=== PATIENT | female | born 1940 | race Caucasian/White ===

== ENCOUNTER 2017-01-07 10:37 | Outpatient (CLI) | payer MEDICARE, OTHER | END 2017-01-07 10:38 | DX: M06.4 Inflammatory polyarthropathy (principal) ==

== ENCOUNTER 2017-03-24 14:29 | Outpatient (CLI) | payer MEDICARE, OTHER ==
[2017-03-24 15:21] LABS: ALBUMIN/GLOBULIN RATIO 1.7 (1.0-2.2); BILIRUBIN,TOTAL 0.3 mg/dL (0.2-1.0); CALCIUM 9.4 mg/dL (8.5-10.3); POTASSIUM 4.2 mmol/L (3.5-5.0)
[2017-03-24 15:25] LABS: BASOPHILS # (AUTO) 0.1 10^3/uL (0.0-0.1); BASOPHILS % (AUTO) 0.9 %; EOSINOPHILS # (AUTO) 0.1 10^3/uL (0.0-0.7); EOSINOPHILS % (AUTO) 0.6 %; HCT - HEMATOCRIT 38.8 % (37.0-47.0); HGB - HEMOGLOBIN 12.9 g/dL (12.0-16.0); LYMPHOCYTES # (AUTO) 1.7 10^3/uL (1.5-3.5); LYMPHOCYTES % (AUTO) 19.3 %; MEAN CORPUSCULAR HEMOGLOBIN 29.7 pg (27.0-31.0); MEAN CORPUSCULAR HGB CONC 33.2 g/dL (32.0-36.0); MEAN CORPUSCULAR VOLUME 89.4 fL (81.0-99.0); MEAN PLATELET VOLUME 8.1 fL (7.9-10.8); MONOCYTES # (AUTO) 0.5 10^3/uL (0.0-1.0); MONOCYTES % (AUTO) 5.6 %; NEUTROPHILS # (AUTO) 6.5 10^3/uL (1.5-6.6); NEUTROPHILS % (AUTO) 73.6 %; RED BLOOD COUNT 4.34 10^6/uL (4.20-5.40); RED CELL DISTRIBUTION WIDTH 15.8 % (12.0-15.0); UNCORRECTED WHITE BLOOD COUNT 8.8 x10^3/uL; WHITE BLOOD COUNT 8.8 x10^3/uL (4.8-10.8)
== END 2017-03-24 14:30 | disposition home or self-care (01) ==
LOC: LAB 14:29
PROVIDERS: ATTEND Internal Medicine Rheumatology
DX: M06.4 Inflammatory polyarthropathy (principal)
CPT/HCPCS: 36415; 80053; 85025; 85651

== ENCOUNTER 2017-04-01 08:00 | Outpatient (CLI) | payer MEDICARE, OTHER ==
[2017-04-02 12:38] LABS: TEST RESULT REPORT (())
[2017-04-03 10:28] LABS: TEST RESULT REPORT (())
== END 2017-04-01 08:01 | disposition home or self-care (01) ==
LOC: LAB.R 08:00
PROVIDERS: ATTEND Internal Medicine Rheumatology
DX: M25.511 Pain in right shoulder (principal)
CPT/HCPCS: 81599; 87070; 87205; 89051; 89060

== ENCOUNTER 2017-05-13 11:37 | Outpatient (CLI) | payer MEDICARE, OTHER ==
--- NOTE | 2017-05-13 14:34 | CT Report ---
CT OF THE ABDOMEN AND PELVIS WITHOUT CONTRAST: 05/13/2017 CLINICAL INDICATION: Back pain, CV angle pain, flank pain right. TECHNIQUE: Axial CT images of the abdomen and pelvis were obtained without oral or intravenous contra st, according to renal stone protocol. No previous CT is available for comparison. FINDINGS: Limited evaluation of the lung bases demonstrates atelectasis. ABDOMEN: The kidneys are unremarkable, without evidence of nephrolithiasis or hydronephrosis. No hydr oureter is seen. Allowing for the lack of intravenous contrast enhancement, the liver, spleen, pancre as and adrenal glands are unremarkable. The gallbladder is not dilated. No bowel dilatation, free gas , or free fluid is present. No abdominal adenopathy is seen. PELVIS: Sigmoid diverticulosis is present, without CT evidence of diverticulitis. No pelvic adenopath y or free fluid is present. The osseous structures demonstrate severe right and moderate left hip osteoarthritis as well as exten sive degenerative changes in the lumbar spine. No acute fracture is present. IMPRESSION: NO EVIDENCE OF NEPHROLITHIASIS OR HYDRONEPHROSIS. EXTENSIVE DEGENERATIVE CHANGES. DIVERT ICULOSIS, WITHOUT CT EVIDENCE OF DIVERTICULITIS. In accordance with CT protocol optimization, one or more of the following dose reduction techniques w ere utilized for this exam: automated exposure control, adjustment of mA and/or KV based on patient size, or use of iterative reconstructive technique. JOB #: [id number] EXT JOB #:
== END 2017-05-13 11:38 | disposition home or self-care (01) ==
LOC: DI 11:37
PROVIDERS: ATTEND Family Medicine
DX: M16.0 Bilateral primary osteoarthritis of hip (principal); N23 Unspecified renal colic; R10.9 Unspecified abdominal pain; K57.30 Diverticulosis of large intestine without perforation or abscess without bleeding; M47.896 Other spondylosis, lumbar region
CPT/HCPCS: 74176

== ENCOUNTER 2017-05-16 13:43 | Outpatient (CLI) | payer MEDICARE, OTHER ==
--- NOTE | 2017-05-16 21:25 | MRI Report ---
EXAM: MRI THORACIC SPINE WITHOUT CONTRAST EXAM DATE: 05/16/2017 02:23 PM. CLINICAL HISTORY: Degenerative joint disease. Scoliosis. Radiculopathy. History of breast cancer. COMPARISONS: None. TECHNIQUE: Multiplanar, multisequence T1-weighted and fluid-sensitive sequences of the thoracic spine from C7 to L1 without contrast. Other: None. FINDINGS: Spinal Cord: No signal abnormality in the visualized spinal cord. Alignment: Normal. No scoliosis or spondylolisthesis. Bone Marrow: No fractures. Type I endplate changes at L1-L2. 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 Mod erate bilateral sternoclavicular joint osteoarthritis is seen. Disk Levels/Facets: All visualized intervertebral disks are desiccated. C7-T1: The disk space is rudimentary. T1-T2: Severe disk height loss is present. Posterior disk protrusions result in mild spinal canal malik rowing. T2-T3: Mild right facet hypertrophy has no neurologic consequence. T3-T4: Unremarkable. T4-T5: Anterior endplate spurring is present. T5-T6: Anterior endplate spurring is present. T6-T7: Patient has mild disk height loss. Anterior endplate spurring is seen. T7-T8: Moderate disk height loss is accompanied by anterior endplate spurring. T8-T9: A minimal posterior disk protrusion has no neurologic consequence. T9-T10: Anterior endplate spurring is present. T10-T11: Moderate disk height loss is accompanied by anterior endplate spurring. A broad-based disk b ulge, mild ligamentum flavum hypertrophy, and mild facet hypertrophy result in mild spinal canal, mod erate right foraminal, and mild left foraminal narrowing. T11-T12: Anterior endplate spurring is present. T12-L1: There is mild disk height loss with anterior endplate spurring. A right-sided disk protrusion results in minimal right foraminal narrowing. L1-L2: Type II endplate change is present. There is severe disk height loss. The area is incompletely evaluated in the examination but a disk protrusion and intracanal synovial cysts cause at least mild spinal canal and right foraminal narrowing. Musculature: Normal. No edema or fatty atrophy. Other: The visualized lungs, mediastinum, and abdominal cavity are unremarkable. IMPRESSION: 1. Mild spinal canal narrowing at T1-T2 due to disk protrusions. 2. Mild spinal canal, moderate right foraminal, and mild left foraminal narrowing at T10-T11 due to d isk and posterior element degenerative changes. 3. At least mild spinal canal and right foraminal narrowing at L1-L2 due to disk and posterior elemen t degenerative changes. [facility] Referring Provider Line: [phone] SITE ID: [id number]
--- NOTE | 2017-05-16 21:26 | MRI Report ---
EXAM: MRI LUMBAR SPINE WITHOUT CONTRAST EXAM DATE: 05/16/2017 02:47 PM. CLINICAL HISTORY: Degenerative disk disease. Scoliosis. Radiculopathy. History of breast cancer. COMPARISON: CT abdomen and pelvis 05/13/2017. TECHNIQUE: Multiplanar, multisequence T1-weighted and fluid-sensitive sequences of the lumbar spine f rom T12 to S1 without contrast. Other: None. FINDINGS: Spinal Cord: The conus terminates at L1-L2. No signal abnormality in the visualized spinal cord. Alignment: Grade 1 anterolisthesis of L5 on S1 measures 9 mm. Grade 1 anterolisthesis of L2 on L3 patti sures 5 mm. A moderate rightward lumbar scoliosis has a Jacob angle of 20 degrees as measured from L2 to L3. There is also leftward translation of L1 on L2 by 5 mm and rightward translation of L3 on L4 b y 6 mm. Bone Marrow: The prior CT demonstrates 5 nonrib-bearing lumbar vertebral bodies. No fractures. Type I endplate changes at L1-L2, L2-L3, L3-L4, L4-L5, and L5-S1. Disk Levels/Facets: All visualized intervertebral disk are desiccated. T10-T11: Anterior endplate spurring is present. A broad-based posterior disk protrusion and ligamentu m flavum hypertrophy result in at least mild spinal canal narrowing. T11-T12: A broad-based posterior disk protrusion causes at least minimal spinal canal narrowing. T12-L1: Mild disk height loss is present. A broad-based disk bulge causes mild spinal canal and minim al bilateral foraminal narrowing. L1-L2: There is severe disk height loss with endplate irregularity. Anterior endplate spurring is pre sent. A broad-based disk bulge, severe ligamentum flavum hypertrophy and mild facet hypertrophy cause mild spinal canal, moderate right foraminal, and mild left foraminal narrowing. Note that there is a n intracanal synovial cyst on the left which contributes to the spinal canal narrowing. It measures 0 .7 x 0.3 x 0.5 cm. L2-L3: Severe disk height loss is accompanied by anterior endplate spurring. The anterolisthesis, a b road-based disk bulge, mild ligamentum flavum hypertrophy, and moderate facet hypertrophy result in m oderate spinal canal, minimal right foraminal, and moderate left foraminal narrowing. L3-L4: Severe disk height loss is accompanied by anterior endplate spurring. A broad-based disk bulge and severe facet hypertrophy cause mild spinal canal, minimal right foraminal, and mild left foramin al narrowing. L4-L5: Severe disk height loss is present. A broad-based disk bulge and mild facet hypertrophy result in minimal spinal canal, mild right foraminal, and minimal left foraminal narrowing. L5-S1: Severe disk height loss is present. The anterolisthesis, a disk bulge, and mild facet osteoart hritis cause severe bilateral foraminal narrowing. Undoubtedly both L5 nerve roots are compressed in the neural foramina. Musculature: Mild posterior paraspinal muscle fatty atrophy is not accompanied by edema. Other: The visualized pelvic cavity is unremarkable. IMPRESSION: 1. Grade 1 anterolisthesis of L2 on L3 and L5 on S1. 2. Moderate rightward lumbar scoliosis and translational listheses. 3. At least mild spinal canal narrowing at T10-T11 due to disk and posterior element degenerative jean-pierre nges. 4. Mild spinal canal narrowing at T12/L1 due to disk bulge. 5. Mild spinal canal, moderate right foraminal, and mild left foraminal narrowing at L1-L2 due to dis k and posterior element degenerative changes. 6. Moderate spinal canal and moderate left foraminal narrowing at L2-L3 due to disk and posterior inez ment degenerative changes. 7. Mild spinal canal and left foraminal narrowing at L3-L4 due to disk and posterior element degenera tive changes. 8. Mild right foraminal narrowing at L4-L5 due to disk and posterior element degenerative changes. 9. Severe bilateral foraminal narrowing at L5-S1 primarily due to the anterolisthesis. Comment: The following findings are so common in adults without low back pain that while we report th eir presence, they must be interpreted with caution and in the context of the clinical situation. (Re keyla Boyer et al, Spine 2001) Prevalence of findings in patients without low back pain: Disk degeneration (any evidence): 92% Disk desiccation/T2 signal loss: 83% Disk height loss: 56% Disk bulge: 64% Disk protrusion: 32% Annular tear/high intensity zone: 38% [facility] Referring Provider Line: [phone] SITE ID: [id number]
== END 2017-05-16 13:44 | disposition home or self-care (01) ==
LOC: DI 13:43
PROVIDERS: ATTEND Family Medicine
DX: M51.24 Other intervertebral disc displacement, thoracic region (principal); M51.34 Other intervertebral disc degeneration, thoracic region; M43.16 Spondylolisthesis, lumbar region; M43.17 Spondylolisthesis, lumbosacral region; M41.86 Other forms of scoliosis, lumbar region; M51.36 Other intervertebral disc degeneration, lumbar region
CPT/HCPCS: 72146; 72148

== ENCOUNTER 2017-06-15 08:52 | Outpatient (CLI) | payer MEDICARE, OTHER ==
--- NOTE | 2017-06-17 06:26 | Mammography Report ---
DIGITAL RIGHT SCREENING MAMMOGRAM: 06/15/2017 CLINICAL INDICATION: A 77-year-old with personal history of left breast cancer status post mastectom y and chemotherapy, interval right augmentation. TECHNIQUE: Right CC, MLO, implant displaced views were obtained. The right breast again demonstrates heterogeneously dense fibroglandular parenchyma. A right subpect oral silicone implant is now in place. No suspicious masses, clustered microcalcifications, or regio ns of architectural distortion are identified. IMPRESSION: BENIGN FINDINGS. RECOMMENDATION: ROUTINE ANNUAL SCREENING UNLESS OTHERWISE CLINICALLY INDICATED. BIRADS CATEGORY: 2, BENIGN FINDINGS. STANDARD QUALIFYING STATEMENTS 1. This examination was reviewed with the aid of Computed-Aided Detection (CAD). 2. A negative or benign imaging report should not delay biopsy if clinically suspicious findings are present. Consider surgical consultation if warranted. More than 5% of cancers are not identified b y imaging. 3. Dense breasts may obscure an underlying neoplasm. JOB #: [id number] EXT JOB #:
== END 2017-06-15 08:53 | disposition home or self-care (01) ==
LOC: DI 08:52
PROVIDERS: ATTEND Physician Assistant Medical
DX: Z12.31 Encounter for screening mammogram for malignant neoplasm of breast (principal); Z08 Encounter for follow-up examination after completed treatment for malignant neoplasm; Z85.3 Personal history of malignant neoplasm of breast; Z98.82 Breast implant status
CPT/HCPCS: 77067

== ENCOUNTER 2017-07-03 15:08 | Outpatient (CLI) | payer MEDICARE, OTHER ==
--- NOTE | 2017-07-06 16:24 | DEXA Report ---
DEXA SCAN: 07/03/2017 CLINICAL INDICATION: Postmenopausal. TECHNIQUE: Dual energy x-ray absorptiometry (DXA) was performed on a Study Edge system. Regions measured are the AP spine, femoral neck, and, if needed, forearm. COMPARISON: None. In accordance with the International Society for Clinical Densitometry (ISCD) guidelines, data from previous exams may be reanalyzed using current recommendations and techniques. This is done to allow a more accurate basis for comparison with the current study. FINDINGS: The data for the lumbar spine is as follows: REGION BMD (g/cm/cm) T-SCORE Z-SCORE L1 1.191 0.5 2.4 L2 1.462 2.2 4.1 L3 1.486 2.4 4.3 L4 1.287 0.7 2.6 TOTAL 1.359 1.5 3.4 NOTE: All evaluable vertebrae are used for classification. The data for the hip is as follows: REGION BMD (g/cm/cm) T-SCORE Z-SCORE Neck 1.180 1.0 3.1 TOTAL 1.128 1.0 2.9 NOTE: The femoral neck or total proximal femur, whichever is lowest, is used for classification. IMPRESSION: THE WHO CLASSIFICATION BASED ON THE INTERNATIONAL REFERENCE STANDARD IS NORMAL. THE FRACTURE RISK IS NOT INCREASED. RECOMMENDATION: Patients with diagnosis of osteoporosis or osteopenia should have regular bone mineral density assessment. For those eligible for Medicare, routine testing is allowed once every 2 years. Testing frequency can be increased for patients who have rapidly progressing disease or for those who are receiving medical therapy to restore bone mass. COMMENT: World Health Organization (WHO) definitions for osteoporosis and osteopenia: NORMAL BMD: T-score at -1.0 or higher, fracture risk is low. OSTEOPENIA BMD: T-score between -1.0 and -2.5, fracture risk is increased. OSTEOPOROSIS BMD: T-score at -2.5 or lower, fracture risk high. National Osteoporosis Foundation recommends: 1. Obtain adequate dietary calcium (at least 1200 mg per day) and vitamin D (400 -800 international units per day). 2. Participate, as appropriate, in regular weightbearing and muscle- strengthening exercise. 3. Avoid tobacco use and reduce alcohol and caffeine intake. 4. For more detailed information see the website at www.NOF.org. MTDD
== END 2017-07-03 15:09 | disposition home or self-care (01) ==
LOC: DI 15:08
PROVIDERS: ATTEND Internal Medicine Rheumatology
DX: M81.0 Age-related osteoporosis without current pathological fracture (principal)
CPT/HCPCS: 77080

== ENCOUNTER 2017-08-06 13:47 | Outpatient (CLI) | payer MEDICARE, OTHER ==
[2017-08-08 20:36] LABS: TEST RESULT REPORT
== END 2017-08-06 13:48 | disposition home or self-care (01) ==
LOC: LAB 13:47
PROVIDERS: ATTEND Internal Medicine Rheumatology
DX: M05.79 Rheumatoid arthritis with rheumatoid factor of multiple sites without organ or systems involvement (principal)
CPT/HCPCS: 36415; 81599; 86480; 87340

== ENCOUNTER 2017-08-07 16:38 | Emergency (ER) | payer MEDICARE, OTHER ==
--- NOTE | 2017-08-07 18:36 | ED Physician Documentation ---
History of Present Illness - Stated complaint Stated Complaint: RT ARM SWOLLEN - Chief complaint Chief Complaint: Ext Problem - History obtained from History obtained from: Patient - History of Present Illness Timing: Today Pain level max: 3 Pain level now: 3 Improved by: nothing Worsened by: nothing - Additonal information Additional information: R elbow redness, swelling, pain. no known injury. States has a history of osteo vs rheumatoid arthritis in the R shoulder and noted redness and swelling to the medial aspect of the L elbow today. Review of Systems Ten Systems: 10 systems reviewed and negative Constitutional: denies: Fever, Chills Ears: denies: Ear pain Nose: denies: Rhinorrhea / runny nose, Epistaxis, Sinus pressure / pain Throat: denies: Sore throat Cardiac: denies: Chest pain / pressure Respiratory: denies: Cough GI: denies: Abdominal Pain, Nausea, Vomiting, Diarrhea : denies: Dysuria, Frequency, Hesitancy, Now EGA Skin: denies: Rash Musculoskeletal: denies: Neck pain, Back pain Neurologic: denies: Focal weakness, Numbness, Seizure, Confused, Headache PD PAST MEDICAL HISTORY - Past Medical History Cardiovascular: None Respiratory: None Neuro: Other Endocrine/Autoimmune: None 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 Psych: None Musculoskeletal: Osteoarthritis, Rheumatoid arthritis, Osteoporosis, Chronic back pain - Past Surgical History Past Surgical History: Yes General: Appendectomy Ortho: Arthroscopic surgery /SUPERVISOR BLAST FURNACE: Mastectomy HEENT: Tonsil/Adenoidectomy - Present Medications Home Medications: Ambulatory Orders Medication Instructions Recorded Confirmed Aspirin Chewable [[place] 81 mg PO DAILY 11/18/13 08/07/17 Aspirin] Chlordiazepoxide/Clidinium Br 1 each PO DAILY 11/18/13 08/07/17 [Chlordiazepoxide-Clidinium Cap] Levothyroxine [Synthroid] 50 mcg PO QDAC 11/18/13 08/07/17 Acetaminophen [Tylenol Extra 2 tab PO BID 08/07/17 08/07/17 Strength] Ascorbic Acid [Vitamin C] 500 mg PO DAILY 08/07/17 08/07/17 Cholecalciferol (Vitamin D3) 1 cap PO DAILY 08/07/17 08/07/17 [Vitamin D3] Flaxseed Oil 1 cap PO DAILY 08/07/17 08/07/17 Krill/Whiting-3/Dha/Epa/Lipids 1 cap PO DAILY 08/07/17 08/07/17 [Krill Oil 350 mg Softgel] L. Acidophilus/L. Rhamnosus 1 each PO DAILY 08/07/17 08/07/17 [Probiotic 15 Billion Cell Cap] Leflunomide 20 mg PO DAILY 08/07/17 08/07/17 Magnesium 400 mg PO DAILY 08/07/17 08/07/17 Multivit with Calcium,Iron,Min 1 tab PO DAILY 08/07/17 08/07/17 [Multiple Vitamins For Women] Vitamin E 100 unit PO DAILY 08/07/17 08/07/17 predniSONE [Deltasone] 4 mg PO DAILY 08/07/17 08/07/17 - Allergies Allergies/Adverse Reactions: Allergies Allergy/AdvReac Type Severity Reaction Status Date / Time hydrocodone AdvReac Dizziness Verified 11/18/13 05:41 - Social History Does the pt smoke?: No Smoking Status: Never smoker Does the pt drink ETOH?: No Does the pt have substance abuse?: No - POLST Patient has POLST: Yes PD ED PE NORMAL - Vitals Vital signs reviewed: Yes - General General: Alert and oriented X 3, No acute distress - HEENT HEENT: Moist mucous membranes - Neck Neck: Supple, no meningeal sign - Cardiac Cardiac: RRR, Strong equal pulses - Respiratory Respiratory: No respiratory distress, Clear bilaterally - Abdomen Abdomen: Soft, Non tender, Non distended - Derm Derm: Warm and dry - Extremities Extremities: Other (Right upper extremity, the medial aspect of the elbow appears to have bruising, approximately 10 x 3 cm. Blanches easily. No petechiae. Otherwise normal exam. No evidence of infection. Is not warm. NVI) - Neuro Neuro: Alert and oriented X 3 - Psych Psych: Normal mood, Normal affect Results - Vitals Vitals: Vital Signs - 24 hr 08/07/17 08/07/17 08/07/17 16:56 18:50 20:11 Temperature 36.4 C L 36.2 C L 36.0 C L Heart Rate 71 68 98 Respiratory 16 16 15 Rate Blood Pressure 150/89 H 151/74 H 155/74 H O2 Saturation 97 97 100 Oxygen O2 Source Room air - Labs Labs: Laboratory Tests 08/07/17 08/07/17 08/07/17 18:53 18:53 18:53 WBC 7.6 RBC 4.49 Hgb 14.1 Hct 42.3 MCV 94.3 MCH 31.3 H MCHC 33.2 RDW 15.3 H Plt Count 265 MPV 7.8 L Neut # 4.6 Lymph # 2.2 [place] # 0.6 Eos # 0.1 Baso # 0.1 Absolute Nucleated RBC 0.00 Nucleated RBC % 0.0 ESR PT 11.1 INR 1.0 APTT 30.2 Sodium 137 Potassium 4.4 Chloride 103 Carbon Dioxide 25 Anion Gap 9.0 BUN 18 Creatinine 0.9 Estimated GFR (MDRD) 61 L Glucose 105 H Calcium 9.5 Total Bilirubin 0.5 AST 18 ALT 16 Alkaline Phosphatase 66 C-Reactive Protein < 1.0 Total Protein 6.2 L Albumin 3.8 Globulin 2.4 Albumin/Globulin Ratio 1.6 Lipase 35 08/07/17 18:53 WBC RBC Hgb Hct MCV MCH MCHC RDW Plt Count MPV Neut # Lymph # [place] # Eos # Baso # Absolute Nucleated RBC Nucleated RBC % ESR 5 PT INR APTT Sodium Potassium Chloride Carbon Dioxide Anion Gap BUN Creatinine Estimated GFR (MDRD) Glucose Calcium Total Bilirubin AST ALT Alkaline Phosphatase C-Reactive Protein Total Protein Albumin Globulin Albumin/Globulin Ratio Lipase PD MEDICAL DECISION MAKING - ED course Complexity details: reviewed results, re-evaluated patient, considered differential, d/w patient ED course: Patient with ecchymosis of the right elbow. Unclear etiology. No evidence of vasculitis, thrombocytopenia, coagulation disorder. We will continue supportive care and follow-up with her doctor. Patient counseled regarding signs and symptoms for which I believe and urgent re-evaluation would be necessary. Patient with good understanding of and agreement to plan and is comfortable going home at this time This document was made in part using voice recognition software. While efforts are made to proofread this document, sound alike and grammatical errors may occur. Departure - Departure Disposition: 01 Home, Self Care Clinical Impression: Ecchymosis Condition: Good Instructions: ED Contusion Soft Tissue Follow-Up: Meron Mcdaniel PA-C [Primary Care Provider] - Within 3 Days (for wound check) Comments: Return if you worsen. This should improve over the next few days. Discharge Date/Time: 08/07/17 20:17
[2017-08-07 18:57] LABS: BASOPHILS # (AUTO) 0.1 10^3/uL (0.0-0.1); BASOPHILS % (AUTO) 1.2 %; EOSINOPHILS # (AUTO) 0.1 10^3/uL (0.0-0.7); EOSINOPHILS % (AUTO) 1.5 %; HCT - HEMATOCRIT 42.3 % (37.0-47.0); HGB - HEMOGLOBIN 14.1 g/dL (12.0-16.0); LYMPHOCYTES # (AUTO) 2.2 10^3/uL (1.5-3.5); LYMPHOCYTES % (AUTO) 28.5 %; MEAN CORPUSCULAR HEMOGLOBIN 31.3 pg (27.0-31.0); MEAN CORPUSCULAR HGB CONC 33.2 g/dL (32.0-36.0); MEAN CORPUSCULAR VOLUME 94.3 fL (81.0-99.0); MEAN PLATELET VOLUME 7.8 fL (7.9-10.8); MONOCYTES # (AUTO) 0.6 10^3/uL (0.0-1.0); MONOCYTES % (AUTO) 8.1 %; NEUTROPHILS # (AUTO) 4.6 10^3/uL (1.5-6.6); NEUTROPHILS % (AUTO) 60.7 %; RED BLOOD COUNT 4.49 10^6/uL (4.20-5.40); RED CELL DISTRIBUTION WIDTH 15.3 % (12.0-15.0); UNCORRECTED WHITE BLOOD COUNT 7.6 x10^3/uL; WHITE BLOOD COUNT 7.6 x10^3/uL (4.8-10.8)
[2017-08-07 19:08] LABS: PT - PROTHROMBIN TIME 11.1 secs (9.9-12.6)
[2017-08-07 19:15] LABS: PARTIAL THROMBOPLASTIN TIME 30.2 secs (24.9-33.3)
[2017-08-07 19:27] LABS: ALBUMIN/GLOBULIN RATIO 1.6 (1.0-2.2); BILIRUBIN,TOTAL 0.5 mg/dL (0.2-1.0); BUN - BLOOD UREA NITROGEN 18 mg/dL (6-20); CALCIUM 9.5 mg/dL (8.5-10.3); CARBON DIOXIDE - CO2 25 mmol/L (21-32); CHLORIDE 103 mmol/L (101-111); CREATININE 0.9 mg/dL (0.4-1.0); GFR - MDRD 61 (>89); GLUCOSE 105 mg/dL (70-100); LIPASE 35 U/L (22-51); POTASSIUM 4.4 mmol/L (3.5-5.0); SODIUM 137 mmol/L (135-145); TOTAL PROTEIN 6.2 g/dL (6.7-8.2)
[2017-08-07 20:12] VITALS: BP 155/74
== END 2017-08-07 20:17 | disposition home or self-care (01) ==
LOC: ED 16:38
DX: R23.3 Spontaneous ecchymoses (principal); M06.9 Rheumatoid arthritis, unspecified; M81.0 Age-related osteoporosis without current pathological fracture; Z79.82 Long term (current) use of aspirin; Z85.3 Personal history of malignant neoplasm of breast
CPT/HCPCS: 36415; 80053; 83690; 85025; 85610; 85651; 85730; 86140; 99283

== ENCOUNTER 2017-08-10 20:45 | Outpatient (CLI) | payer MEDICARE, OTHER ==
--- NOTE | 2017-08-10 22:22 | Ultrasound Preliminary Report ---
Exam: US DUPLEX EXT VEINS RIGHT IMPRESSION: 1. No evidence for deep vein thrombosis. 2. Complex collection in the biceps measuring 8.1 x 0.8 x 3.9 cm, possibly hematoma. [facility] SITE ID: [id number]
--- NOTE | 2017-08-10 22:25 | Ultrasound Report ---
EXAM: RIGHT UPPER EXTREMITY VENOUS ULTRASOUND EXAM DATE: 08/10/2017 10:09 PM. CLINICAL HISTORY: LOCALIZED SWELLING OF ARM, RIGHT. COMPARISON: None. TECHNIQUE: Real-time sonographic vascular imaging was performed by the supervisor fryer farm through the upper extremity utilizing both color-flow and Doppler spectral analysis. Multiple sales representative advertising static leticia ges were saved for review. FINDINGS: Internal Jugular Vein (IJV): Normal. Subclavian Vein (SCV): Normal. Axillary Vein : Normal. Cephalic Vein (superficial vein): Normal. Basilic Vein (superficial vein): Normal. Brachial Vein: Normal. Other: Complex collection in the right biceps measuring 8.1 x 0.8 x 3.9 cm. IMPRESSION: 1. No evidence for deep vein thrombosis. 2. Complex collection in the biceps measuring 8.1 x 0.8 x 3.9 cm, possibly hematoma. [facility] Referring Provider Line: [phone] SITE ID: [id number]
== END 2017-08-10 20:46 | disposition home or self-care (01) ==
LOC: DI 20:45
PROVIDERS: ATTEND Family Medicine
DX: R22.31 Localized swelling, mass and lump, right upper limb (principal)

== ENCOUNTER 2017-08-27 14:07 | Outpatient (CLI) | payer MEDICARE, OTHER ==
--- NOTE | 2017-08-27 19:02 | XRAY Report ---
TWO VIEW RIGHT HUMERUS: 08/27/2017 CLINICAL INDICATION: Pain. COMPARISON: Right shoulder 12/12/2015. Frontal and lateral views of the right humerus demonstrate no evidence of fracture. There has been p rogression of osteoarthritis of the right glenohumeral joint, and new widening of the right acromiocl avicular joint, compatible with shoulder separation. No radiopaque foreign body is seen in the soft tissues. IMPRESSION: PROGRESSION OF OSTEOARTHRITIS. WIDENING OF THE RIGHT ACROMIOCLAVICULAR JOINT, COMPATIBL E WITH SHOULDER SEPARATION, NEW FROM 12/12/2015. NO EVIDENCE OF HUMERAL FRACTURE. :9 JOB #: [id number] EXT JOB #:[id number]
== END 2017-08-27 14:08 | disposition home or self-care (01) ==
LOC: DI 14:07
PROVIDERS: ATTEND Physician Assistant Medical
DX: M19.011 Primary osteoarthritis, right shoulder (principal)

== ENCOUNTER 2017-09-01 09:39 | Outpatient (CLI) | payer MEDICARE, OTHER ==
--- NOTE | 2017-09-01 13:22 | XRAY Report ---
AC JOINTS WITH AND WITHOUT WEIGHTS: 09/01/2017 CLINICAL INDICATION: Shoulder separation. FINDINGS: Frontal non-weightbearing and weightbearing views of the acromioclavicular joints were obt ained. There is widening of the right acromioclavicular joint, measuring 13 mm, which is stable with and without weights. Degenerative changes are noted in the left acromioclavicular joint. IMPRESSION: RIGHT AC SEPARATION, NOW STABLE, LIKELY CHRONIC. JOB #: [id number] EXT JOB #:[id number]
== END 2017-09-01 09:40 | disposition home or self-care (01) ==
LOC: DI 09:39
PROVIDERS: ATTEND Physician Assistant Medical
DX: M62.011 Separation of muscle (nontraumatic), right shoulder (principal)
CPT/HCPCS: 73050

== ENCOUNTER 2017-09-30 14:26 | Outpatient (CLI) | payer MEDICARE, OTHER ==
[2017-09-30 13:18] LABS: BASOPHILS # (AUTO) 0.1 10^3/uL (0.0-0.1); BASOPHILS % (AUTO) 1.3 %; EOSINOPHILS # (AUTO) 0.1 10^3/uL (0.0-0.7); HCT - HEMATOCRIT 40.9 % (37.0-47.0); HGB - HEMOGLOBIN 13.8 g/dL (12.0-16.0); LYMPHOCYTES # (AUTO) 1.3 10^3/uL (1.5-3.5); LYMPHOCYTES % (AUTO) 23.2 %; MEAN CORPUSCULAR HEMOGLOBIN 31.6 pg (27.0-31.0); MEAN CORPUSCULAR HGB CONC 33.7 g/dL (32.0-36.0); MEAN CORPUSCULAR VOLUME 93.7 fL (81.0-99.0); MEAN PLATELET VOLUME 8.6 fL (7.9-10.8); MONOCYTES # (AUTO) 0.7 10^3/uL (0.0-1.0); MONOCYTES % (AUTO) 11.6 %; NEUTROPHILS # (AUTO) 3.5 10^3/uL (1.5-6.6); NEUTROPHILS % (AUTO) 61.9 %; RED BLOOD COUNT 4.36 10^6/uL (4.20-5.40); RED CELL DISTRIBUTION WIDTH 14.2 % (12.0-15.0); UNCORRECTED WHITE BLOOD COUNT 5.7 x10^3/uL; WHITE BLOOD COUNT 5.7 x10^3/uL (4.8-10.8)
[2017-09-30 14:13] LABS: ALBUMIN/GLOBULIN RATIO 1.5 (1.0-2.2); BILIRUBIN,TOTAL 0.4 mg/dL (0.2-1.0); CREATININE 0.7 mg/dL (0.4-1.0); TOTAL PROTEIN 6.2 g/dL (6.7-8.2)
== END 2017-09-30 14:27 | disposition home or self-care (01) ==
LOC: LAB.WCP 14:26
PROVIDERS: ATTEND Internal Medicine Rheumatology
DX: M06.9 Rheumatoid arthritis, unspecified (principal); M06.4 Inflammatory polyarthropathy
CPT/HCPCS: 36415; 80053; 85025; 85651

== ENCOUNTER 2017-10-29 08:00 | Outpatient (CLI) | payer MEDICARE, OTHER ==
[2017-10-29 12:51] LABS: BASOPHILS # (AUTO) 0.2 10^3/uL (0.0-0.1); BASOPHILS % (AUTO) 3.5 %; EOSINOPHILS # (AUTO) 0.3 10^3/uL (0.0-0.7); EOSINOPHILS % (AUTO) 4.3 %; HGB - HEMOGLOBIN 14.4 g/dL (12.0-16.0); LYMPHOCYTES # (AUTO) 1.3 10^3/uL (1.5-3.5); MEAN CORPUSCULAR HEMOGLOBIN 30.7 pg (27.0-31.0); MEAN CORPUSCULAR HGB CONC 33.7 g/dL (32.0-36.0); MEAN PLATELET VOLUME 8.9 fL (7.9-10.8); MONOCYTES # (AUTO) 0.7 10^3/uL (0.0-1.0); MONOCYTES % (AUTO) 10.8 %; NEUTROPHILS # (AUTO) 3.7 10^3/uL (1.5-6.6); NEUTROPHILS % (AUTO) 60.4 %; PLT - PLATELET COUNT 221 10^3/uL (130-450); RED BLOOD COUNT 4.69 10^6/uL (4.20-5.40); RED CELL DISTRIBUTION WIDTH 13.9 % (12.0-15.0); WHITE BLOOD COUNT 6.2 x10^3/uL (4.8-10.8)
[2017-10-29 13:04] LABS: ALBUMIN 3.7 g/dL (3.2-5.5); ALBUMIN/GLOBULIN RATIO 1.4 (1.0-2.2); BILIRUBIN,TOTAL 0.5 mg/dL (0.2-1.0); CREATININE 0.8 mg/dL (0.4-1.0); TOTAL PROTEIN 6.3 g/dL (6.7-8.2)
== END 2017-10-29 08:01 ==
LOC: LAB.WCP 08:00
PROVIDERS: ATTEND Physician Assistant Medical
DX: A08.4 Viral intestinal infection, unspecified (principal)
CPT/HCPCS: 36415; 80053; 85025

== ENCOUNTER 2018-01-04 13:39 | Outpatient (CLI) | payer MEDICARE, OTHER ==
--- NOTE | 2018-01-04 15:34 | Ultrasound Report ---
RIGHT BREAST ULTRASOUND: 01/04/2018 CLINICAL INDICATION: Palpable abnormality. TECHNIQUE: Real-time scanning was performed with technology sales representative static images obtained. FINDINGS: Ultrasound of the inferior right breast was performed. Unremarkable parenchymal lobules are seen superficial to the patient's implant. No sonographically suspicious findings are appreciated. IMPRESSION: BENIGN FINDINGS. RECOMMENDATION: ROUTINE ANNUAL MAMMOGRAPHY UNLESS OTHERWISE CLINICALLY INDICATED. BIRADS CATEGORY 2-BENIGN FINDINGS. TD: 01/04/2018 15:33
--- NOTE | 2018-01-04 15:38 | Mammography Report ---
DIGITAL DIAGNOSTIC RIGHT MAMMOGRAM: 01/04/2018 CLINICAL INDICATION: Palpable abnormality status post fall. COMPARISON: 06/15/2017, 03/20/2016, 06/05/2014, 06/01/2013, 05/14/2012, 05/12/2011, 05/09/2010. TECHNIQUE: Right CC, MLO, true lateral, implant displaced views. FINDINGS: He right breast again demonstrates scattered fibroglandular densities. Right subpectoral implant appears stable. No suspicious masses, clustered microcalcifications, or regions of architectural distortion are identified. Specifically, no mammographic abnormality is appreciated in the inferior right breast, at the site indicated by the marker. Please also refer to right breast ultrasound of the same day. IMPRESSION: BENIGN FINDINGS. RECOMMENDATION: ROUTINE ANNUAL SCREENING UNLESS OTHERWISE CLINICALLY INDICATED. BIRADS CATEGORY 2-BENIGN FINDINGS. STANDARD QUALIFYING STATEMENTS: 1. This examination was reviewed with the aid of Computer-Aided Detection (CAD). 2. A negative or benign imaging report should not delay biopsy if clinically suspicious findings are present. Consider surgical consultation if warranted. More than 5% of cancers are not identified by imaging. 3. Dense breasts may obscure an underlying neoplasm. TD: 01/04/2018 15:37
== END 2018-01-04 13:40 | disposition home or self-care (01) ==
LOC: DI 13:39
PROVIDERS: ATTEND Physician Assistant Medical
DX: N63.14 Unspecified lump in the right breast, lower inner quadrant (principal); N63.13 Unspecified lump in the right breast, lower outer quadrant; Z98.82 Breast implant status
CPT/HCPCS: 76642

== ENCOUNTER 2018-01-12 10:21 | Outpatient (CLI) | payer MEDICARE, OTHER ==
[2018-01-12 10:52] LABS: BASOPHILS % (AUTO) 0.3 %; EOSINOPHILS # (AUTO) 0.2 10^3/uL (0.0-0.7); EOSINOPHILS % (AUTO) 1.7 %; HGB - HEMOGLOBIN 14.2 g/dL (12.0-16.0); LYMPHOCYTES # (AUTO) 2.6 10^3/uL (1.5-3.5); LYMPHOCYTES % (AUTO) 28.7 %; MEAN CORPUSCULAR HEMOGLOBIN 31.1 pg (27.0-31.0); MEAN CORPUSCULAR HGB CONC 33.3 g/dL (32.0-36.0); MEAN CORPUSCULAR VOLUME 93.3 fL (81.0-99.0); MEAN PLATELET VOLUME 7.6 fL (7.9-10.8); MONOCYTES # (AUTO) 0.9 10^3/uL (0.0-1.0); MONOCYTES % (AUTO) 9.7 %; NEUTROPHILS # (AUTO) 5.3 10^3/uL (1.5-6.6); NEUTROPHILS % (AUTO) 59.6 %; PLT - PLATELET COUNT 319 10^3/uL (130-450); RED BLOOD COUNT 4.58 10^6/uL (4.20-5.40); RED CELL DISTRIBUTION WIDTH 14.7 % (12.0-15.0)
[2018-01-12 11:07] LABS: CALCIUM 9.3 mg/dL (8.5-10.3)
[2018-01-12 11:09] LABS: HB2 TOTAL 15.1 g/dL; HEMOGLOBIN A1C 0.54 g/dL; HEMOGLOBIN A1C % 5.4 % (4.6-6.2)
[2018-01-12 11:31] LABS: BILIRUBIN,URINE NEGATIVE (NEGATIVE); GLUCOSE, URINE (UA) NEGATIVE (NEGATIVE); KETONES,URINE (UA) NEGATIVE (NEGATIVE); LEUKOCYTE ESTERASE, URINE SMALL (NEGATIVE); NITRITE,URINE NEGATIVE (NEGATIVE); OCCULT BLOOD,URINE NEGATIVE (NEGATIVE); PH,URINE 5.5 PH (5.0-7.5); PROTEIN,URINE NEGATIVE (NEGATIVE); UROBILINOGEN,URINE 0.2 (NORMAL) E.U./dL (NORMAL)
[2018-01-12 11:35] LABS: CLARITY,URINE CLEAR (CLEAR)
[2018-01-12 11:45] LABS: RBC,URINE 0-5 /HPF (0-5); SQUAMOUS EPITHELIAL CELL,UR NONE SEEN (<= Few)
[2018-01-12 11:46] LABS: BACTERIA,URINE Rare /HPF (None Seen)
== END 2018-01-12 10:22 | disposition home or self-care (01) ==
LOC: LAB 10:21
PROVIDERS: ATTEND Orthopaedic Surgery
DX: R73.9 Hyperglycemia, unspecified (principal); N39.0 Urinary tract infection, site not specified; Z01.812 Encounter for preprocedural laboratory examination; Z01.818 Encounter for other preprocedural examination
CPT/HCPCS: 36415; 80048; 81001; 83036; 85025; 87086

== ENCOUNTER 2018-01-13 10:57 | Outpatient (CLI) | payer MEDICARE, OTHER | END 2018-01-13 10:58 | disposition home or self-care (01) | LOC: RT 10:57 | PROVIDERS: ATTEND Orthopaedic Surgery | DX: Z01.812 Encounter for preprocedural laboratory examination (principal) | CPT/HCPCS: 93005 ==

== ENCOUNTER 2018-03-03 08:00 | Outpatient (CLI) | payer MEDICARE, OTHER ==
[2018-03-03 19:20] LABS: BASOPHILS # (AUTO) 0.1 10^3/uL (0.0-0.1); BASOPHILS % (AUTO) 0.8 %; EOSINOPHILS # (AUTO) 0.1 10^3/uL (0.0-0.7); EOSINOPHILS % (AUTO) 0.8 %; LYMPHOCYTES # (AUTO) 1.7 10^3/uL (1.5-3.5); LYMPHOCYTES % (AUTO) 23.4 %; MEAN CORPUSCULAR HEMOGLOBIN 30.7 pg (27.0-31.0); MEAN CORPUSCULAR HGB CONC 32.5 g/dL (32.0-36.0); MEAN CORPUSCULAR VOLUME 94.6 fL (81.0-99.0); MEAN PLATELET VOLUME 8.6 fL (7.9-10.8); MONOCYTES # (AUTO) 0.4 10^3/uL (0.0-1.0); MONOCYTES % (AUTO) 5.6 %; NEUTROPHILS % (AUTO) 69.4 %; PLT - PLATELET COUNT 260 10^3/uL (130-450); RED BLOOD COUNT 4.24 10^6/uL (4.20-5.40); RED CELL DISTRIBUTION WIDTH 14.9 % (12.0-15.0); WHITE BLOOD COUNT 7.3 x10^3/uL (4.8-10.8)
[2018-03-03 19:30] LABS: ALBUMIN 3.6 g/dL (3.2-5.5); ALBUMIN/GLOBULIN RATIO 1.5 (1.0-2.2); BILIRUBIN,TOTAL 0.8 mg/dL (0.2-1.0); CALCIUM 8.9 mg/dL (8.5-10.3); CREATININE 0.8 mg/dL (0.4-1.0)
== END 2018-03-03 08:01 ==
LOC: LAB.WCP 08:00
PROVIDERS: ATTEND Internal Medicine Rheumatology
DX: M06.9 Rheumatoid arthritis, unspecified (principal)
CPT/HCPCS: 36415; 80053; 85025; 85651

== ENCOUNTER 2018-04-26 12:12 | Outpatient (CLI) | payer MEDICARE, OTHER ==
--- NOTE | 2018-04-26 13:26 | XRAY Report ---
Procedure Date: 04/26/2018 Accession Number: [id number] / [id number] Procedure: XR - Hips 2V BILAT CPT Code: FULL RESULT: EXAM: Hips 2V BILAT DATE: 04/26/2018 12:47 PM CLINICAL HISTORY: MILD BILATERAL HIP PAIN AFTER FALL COMPARISON: None. TECHNIQUE: 1 view of the pelvis and 1 view of each hip. FINDINGS: Bones: Right hip replacement in place. No evidence of fracture or hardware complication. Joints: Mild left hip osteoarthritis. Soft Tissues: Normal. No soft tissue swelling. IMPRESSION: Mild left hip osteoarthritis. Right hip replacement in place. No evidence of acute fracture or hardware complication. [facility]
--- NOTE | 2018-04-26 13:28 | XRAY Report ---
Procedure Date: 04/26/2018 Accession Number: [id number] / [id number] Procedure: XR - Facial Bones Complete CPT Code: FULL RESULT: EXAM: Facial Bones Complete DATE: 04/26/2018 12:47 PM CLINICAL HISTORY: PAIN IN FACE/HIP PAIN, RIGHT TECHNIQUE: AP, Amezcua, lateral, SMV COMPARISON: None FINDINGS: There is no evidence of facial bone fracture. The paranasal sinuses appear unremarkable. IMPRESSION: No evidence of facial bone fracture.
== END 2018-04-26 12:13 | disposition home or self-care (01) ==
LOC: DI 12:12
PROVIDERS: ATTEND Physician Assistant Medical
DX: R51 Headache (principal); M16.12 Unilateral primary osteoarthritis, left hip; Z96.641 Presence of right artificial hip joint
CPT/HCPCS: 70150; 73521

== ENCOUNTER 2018-04-27 11:36 | Outpatient (CLI) | payer MEDICARE, OTHER ==
--- NOTE | 2018-04-27 12:00 | CT Report ---
Procedure Date: 04/27/2018 Accession Number: [id number] / [id number] Procedure: CT - Head W/O CPT Code: FULL RESULT: EXAM: Head W/O DATE: 04/27/2018 11:52 AM CLINICAL HISTORY: PAIN IN FACE, status post fall 4 days ago COMPARISON: None. TECHNIQUE: Multiaxial CT images were obtained from the foramen magnum to the vertex. IV contrast: None. Reformats: Coronal. In accordance with CT protocol optimization, one or more of the following dose reduction techniques were utilized for this exam: automated exposure control, adjustment of mA and/or KV based on patient size, or use of iterative reconstructive technique. FINDINGS: Parenchyma: No intraparenchymal hemorrhage. No evidence of mass, midline shift, or CT findings of infarction. Angelo-white differentiation is distinct. Extraaxial Spaces: Normal for age. No subdural or epidural collections identified. Ventricles: Normal in size and position. Sinuses: Small mucous retention cyst or polyp in the medial portion of the left maxillary sinus. Bones: No evidence of fracture or calvarial defect. Other: None. IMPRESSION: No evidence of intracranial hemorrhage or mass effect. No fracture. Small mucous retention cyst or polyp in the medial left maxillary sinus. RAD[facility]
== END 2018-04-27 11:37 | disposition home or self-care (01) ==
LOC: DI 11:36
PROVIDERS: ATTEND Physician Assistant Medical
DX: R51 Headache (principal)
CPT/HCPCS: 70450

== ENCOUNTER 2018-07-01 10:22 | Outpatient (CLI) | payer MEDICARE, OTHER ==
[2018-07-01 11:00] LABS: BASOPHILS # (AUTO) 0.1 10^3/uL (0.0-0.1); BASOPHILS % (AUTO) 1.4 %; EOSINOPHILS # (AUTO) 0.2 10^3/uL (0.0-0.7); EOSINOPHILS % (AUTO) 2.8 %; HGB - HEMOGLOBIN 13.6 g/dL (12.0-16.0); LYMPHOCYTES # (AUTO) 1.6 10^3/uL (1.5-3.5); LYMPHOCYTES % (AUTO) 21.1 %; MEAN CORPUSCULAR HEMOGLOBIN 31.1 pg (27.0-31.0); MEAN CORPUSCULAR HGB CONC 33.8 g/dL (32.0-36.0); MEAN CORPUSCULAR VOLUME 92.3 fL (81.0-99.0); MONOCYTES # (AUTO) 0.7 10^3/uL (0.0-1.0); MONOCYTES % (AUTO) 9.2 %; NEUTROPHILS # (AUTO) 4.9 10^3/uL (1.5-6.6); NEUTROPHILS % (AUTO) 65.5 %; PLT - PLATELET COUNT 233 10^3/uL (130-450); RED BLOOD COUNT 4.36 10^6/uL (4.20-5.40); RED CELL DISTRIBUTION WIDTH 16.1 % (12.0-15.0); WHITE BLOOD COUNT 7.4 x10^3/uL (4.8-10.8)
[2018-07-01 11:26] LABS: ALBUMIN 3.8 g/dL (3.2-5.5); ALBUMIN/GLOBULIN RATIO 1.6 (1.0-2.2); BILIRUBIN,TOTAL 0.6 mg/dL (0.2-1.0); CALCIUM 9.2 mg/dL (8.5-10.3); CREATININE 0.9 mg/dL (0.4-1.0); TOTAL PROTEIN 6.2 g/dL (6.7-8.2)
== END 2018-07-01 10:23 | disposition home or self-care (01) ==
LOC: LAB 10:22
PROVIDERS: ATTEND Internal Medicine Rheumatology
DX: M06.9 Rheumatoid arthritis, unspecified (principal)
CPT/HCPCS: 36415; 80053; 85025; 85651

== ENCOUNTER 2018-07-08 17:26 | Observation (INO) | payer MEDICARE, OTHER ==
[~2018-07-08 17:26] MED LIST: INFLIXIMAB IV ONE; SODIUM CHLORIDE 0.9% IV ONE; SODIUM CHLORIDE FLUSH 0.9% 10 ML SYRINGE IVP ONE
--- NOTE | 2018-07-08 18:24 | XRAY Report ---
Reason: new SOA for two weeks Procedure Date: 07/08/2018 Accession Number: [id number] / [id number] Procedure: XR - Chest 2 View X-Ray CPT Code: 30125 FULL RESULT: EXAM: CHEST RADIOGRAPHY EXAM DATE: 07/08/2018 06:07 PM. CLINICAL HISTORY: Dyspnea. COMPARISON: ABDOMEN ACUTE 10/29/2017 10:48 AM. TECHNIQUE: 2 views. FINDINGS: Lungs/Pleura: No focal opacities evident. No pleural effusion. No pneumothorax. Normal volumes. Mediastinum: Borderline cardiomegaly. There is mild thoracic aortic tortuosity. Other: There is scoliotic curvature of the thoracolumbar spine. IMPRESSION: 1. There is borderline cardiomegaly. There is thoracic aortic tortuosity. 2. No acute intrathoracic plain film abnormality. RAD[facility]
[2018-07-08 18:32] LABS: BASOPHILS # (AUTO) 0.1 10^3/uL (0.0-0.1); BASOPHILS % (AUTO) 1.8 %; EOSINOPHILS # (AUTO) 0.1 10^3/uL (0.0-0.7); EOSINOPHILS % (AUTO) 1.4 %; LYMPHOCYTES # (AUTO) 1.8 10^3/uL (1.5-3.5); LYMPHOCYTES % (AUTO) 27.6 %; MEAN CORPUSCULAR HEMOGLOBIN 31.2 pg (27.0-31.0); MEAN CORPUSCULAR HGB CONC 33.9 g/dL (32.0-36.0); MEAN CORPUSCULAR VOLUME 91.9 fL (81.0-99.0); MEAN PLATELET VOLUME 8.3 fL (7.9-10.8); MONOCYTES # (AUTO) 0.6 10^3/uL (0.0-1.0); MONOCYTES % (AUTO) 9.5 %; NEUTROPHILS # (AUTO) 3.9 10^3/uL (1.5-6.6); NEUTROPHILS % (AUTO) 59.7 %; PLT - PLATELET COUNT 255 10^3/uL (130-450); RED BLOOD COUNT 4.49 10^6/uL (4.20-5.40); RED CELL DISTRIBUTION WIDTH 15.4 % (12.0-15.0); WHITE BLOOD COUNT 6.5 x10^3/uL (4.8-10.8)
[2018-07-08 18:39] LABS: ALBUMIN 4.2 g/dL (3.2-5.5); ALBUMIN/GLOBULIN RATIO 1.7 (1.0-2.2); BILIRUBIN,TOTAL 0.6 mg/dL (0.2-1.0); CALCIUM 9.3 mg/dL (8.5-10.3); CREATININE 0.8 mg/dL (0.4-1.0); TOTAL PROTEIN 6.7 g/dL (6.7-8.2)
[2018-07-08] MEDS ORDERED: FUROSEMIDE 20 MG/2 ML VIAL IVP STA (19:23)
[2018-07-08] MEDS ORDERED: NITROGLYCERIN 2% PASTE TOP STA (19:23)
[2018-07-08] MEDS ORDERED: ASPIRIN CHEW 81 MG TABLET PO STA (19:23)
--- NOTE | 2018-07-08 19:37 | ED Physician Documentation ---
History of Present Illness - Stated complaint Stated Complaint: SOA - Chief complaint Chief Complaint: Resp - Additonal information Additional information: 78-year-old female presents the emergency department with increasing dyspnea on exertion which has worsened over the past several days. The patient reports only being able to go a short distance before she is significantly short of breath and needing to rest. The patient's symptoms resolve with rest. The patient denies any chest pain, palpitations or abdominal pain. The patient does report pedal edema. The patient denies any history of congestive heart failure. Symptoms are described as severe. No triggering factors. The patient denies recent URI symptoms. Review of Systems Constitutional: reports: Fatigue. denies: Fever Eyes: denies: Loss of vision Ears: denies: Ear pain Nose: denies: Congestion Throat: denies: Sore throat Cardiac: reports: Pedal edema. denies: Palpitations Respiratory: reports: Dyspnea GI: denies: Abdominal Pain : denies: Dysuria Skin: denies: Rash Musculoskeletal: denies: Neck pain Neurologic: denies: Generalized weakness Immunocompromised: denies: Chemotherapy PD PAST MEDICAL HISTORY - Past Medical History Past Medical History: Yes Cardiovascular: None Respiratory: None Endocrine/Autoimmune: None GI: Other COMMUNITY RELATIONS LIAISON: Breast cancer Psych: None Musculoskeletal: Osteoarthritis, Rheumatoid arthritis, Osteoporosis, Chronic back pain - Past Surgical History Past Surgical History: Yes General: Appendectomy Ortho: Arthroscopic surgery /COMMUNITY RELATIONS LIAISON: Mastectomy HEENT: Tonsil/Adenoidectomy - Present Medications Home Medications: Ambulatory Orders Medication Instructions Recorded Confirmed Chlordiazepoxide/Clidinium Br 1 each PO DAILY 11/18/13 07/08/18 [Chlordiazepoxide-Clidinium Cap] Levothyroxine [Synthroid] 50 mcg PO QDAC 11/18/13 07/08/18 Ascorbic Acid [Vitamin C] 1,000 mg PO DAILY 08/07/17 07/08/18 Cholecalciferol (Vitamin D3) 1 cap PO DAILY 08/07/17 07/08/18 [Vitamin D3] Flaxseed Oil 1 cap PO DAILY 08/07/17 07/08/18 Krill/Winn-3/Dha/Epa/Lipids 1 cap PO DAILY 08/07/17 07/08/18 [Krill Oil 350 mg Softgel] L. Acidophilus/L. Rhamnosus 1 each PO DAILY 08/07/17 07/08/18 [Probiotic 15 Billion Cell Cap] Leflunomide 20 mg PO DAILY 08/07/17 07/08/18 Magnesium 400 mg PO DAILY 08/07/17 07/08/18 Multivit with Calcium,Iron,Min 1 tab PO DAILY 08/07/17 07/08/18 [Multiple Vitamins For Women] Vitamin E 100 unit PO DAILY 08/07/17 07/08/18 Aspirin [Aspirin EC] 81 mg PO QDBREAKFAST 11/11/17 07/08/18 Charcoal 2 tab PO DAILY 11/11/17 07/08/18 L Lysine 1,000 mg PO BID 11/11/17 07/08/18 Prednisone [Aron] 5 mg PO DAILY 11/11/17 07/08/18 Hydroxychloroquine [Plaquenil] 200 mg PO BID 07/08/18 07/08/18 Naproxen Sodium [Aleve] 220 mg PO BID PRN 07/08/18 07/08/18 - Allergies Allergies/Adverse Reactions: Allergies Allergy/AdvReac Type Severity Reaction Status Date / Time hydrocodone AdvReac Dizziness Verified 07/08/18 17:36 - Social History Does the pt smoke?: No Smoking Status: Never smoker Does the pt drink ETOH?: No Does the pt have substance abuse?: No - Immunizations Immunizations are current?: Yes - POLST Patient has POLST: Yes PD ED PE NORMAL - General General: Alert and oriented X 3, No acute distress - HEENT HEENT: Atraumatic, PERRL, EOMI, Ears normal - Neck Neck: No JVD - Cardiac Cardiac: RRR, Strong equal pulses - Respiratory Respiratory: No respiratory distress, Other (Trace rales at the bases) - Abdomen Abdomen: Soft, Non tender - Derm Derm: Normal color - Extremities Extremities: No deformity, Normal ROM s pain. No: No edema (Bilateral pedal edema) - Neuro Neuro: Alert and oriented X 3, No motor deficit, Normal speech - Psych Psych: Normal affect Results - Vitals Vitals: Vital Signs - 24 hr 07/08/18 07/08/18 07/08/18 17:32 19:04 19:36 Temperature 36.3 C L Heart Rate 85 75 72 Respiratory 24 22 16 Rate Blood Pressure 173/125 H 142/106 H O2 Saturation 97 95 96 07/08/18 07/08/18 07/08/18 19:42 20:24 21:02 Temperature 36.4 C L Heart Rate 70 76 103 H Respiratory 25 H 20 24 Rate Blood Pressure 152/87 H 146/75 H O2 Saturation 96 95 89 L Oxygen O2 Source Room air - EKG (time done) 17:41 Rate: Rate (enter#) Rhythm: NSR Intervals: LBBB Ischemia: Non specific changes Compare to prior EKG: Changed from prior EKG - Labs Labs: Laboratory Tests 07/08/18 07/08/18 07/08/18 18:20 18:20 18:20 WBC 6.5 RBC 4.49 Hgb 14.0 Hct 41.3 MCV 91.9 MCH 31.2 H MCHC 33.9 RDW 15.4 H Plt Count 255 MPV 8.3 Neut # (Auto) 3.9 Lymph # (Auto) 1.8 [place] # (Auto) 0.6 Eos # (Auto) 0.1 Baso # (Auto) 0.1 Absolute Nucleated RBC 0.00 Nucleated RBC % 0.1 D-Dimer Sodium 138 Potassium 4.2 Chloride 105 Carbon Dioxide 25 Anion Gap 8.0 BUN 17 Creatinine 0.8 Estimated GFR (MDRD) 69 L Glucose 98 Calcium 9.3 Total Bilirubin 0.6 AST 21 ALT 17 Alkaline Phosphatase 88 Troponin I < 0.04 B-Natriuretic Peptide Total Protein 6.7 Albumin 4.2 Globulin 2.5 Albumin/Globulin Ratio 1.7 Lipase 44 07/08/18 07/08/18 18:20 18:20 WBC RBC Hgb Hct MCV MCH MCHC RDW Plt Count MPV Neut # (Auto) Lymph # (Auto) [place] # (Auto) Eos # (Auto) Baso # (Auto) Absolute Nucleated RBC Nucleated RBC % D-Dimer 347.4 H Sodium Potassium Chloride Carbon Dioxide Anion Gap BUN Creatinine Estimated GFR (MDRD) Glucose Calcium Total Bilirubin AST ALT Alkaline Phosphatase Troponin I B-Natriuretic Peptide 1319 H Total Protein Albumin Globulin Albumin/Globulin Ratio Lipase - Rads (name of study) CTA chest Radiology: Final report received (IMPRESSION: No pulmonary embolism or other acute cardiopulmonary abnormality demonstrated. ) PD MEDICAL DECISION MAKING - ED course ED course: The patient's acute condition seems to be secondary to new onset congestive heart failure and the patient will benefit from admission to the hospital for diuresis and further evaluation. The findings and plan were discussed with the patient who understands and agrees to the plan. The case discussed with the hospitalist Dr. Padilla who accepts the patient onto her service - Sepsis Event Vital Signs: Vital Signs - 24 hr 07/08/18 07/08/18 07/08/18 17:32 19:04 19:36 Temperature 36.3 C L Heart Rate 85 75 72 Respiratory 24 22 16 Rate Blood Pressure 173/125 H 142/106 H O2 Saturation 97 95 96 07/08/18 07/08/18 07/08/18 19:42 20:24 21:02 Temperature 36.4 C L Heart Rate 70 76 103 H Respiratory 25 H 20 24 Rate Blood Pressure 152/87 H 146/75 H O2 Saturation 96 95 89 L Oxygen O2 Source Room air Departure - Departure Disposition: ED Place in Observation Clinical Impression: New onset of congestive heart failure, Dyspnea on exertion, Weakness Condition: Fair Discharge Date/Time: 07/08/18 21:37
[2018-07-08] MEDS ORDERED: IOPAMIDOL-300 100 ML VIAL ONE (20:28)
[2018-07-08] MEDS ORDERED: IOPAMIDOL-300 100 ML VIAL IVP ONE (21:04)
[2018-07-08] MEDS ORDERED: SODIUM CHLORIDE FLUSH 0.9% 10 ML SYRINGE IVP PRN (21:09)
[2018-07-08] MEDS ORDERED: oxyCODONE 5 MG TABLET PO PRN (21:09)
[2018-07-08] MEDS ORDERED: ONDANSETRON 4 MG/2 ML VIAL IVP PRN (21:09)
[2018-07-08] MEDS ORDERED: ONDANSETRON ODT 4 MG TABLET TL PRN (21:09)
--- NOTE | 2018-07-08 21:20 | CT Report ---
Reason: soa, elevated D-Dimer Procedure Date: 07/08/2018 Accession Number: [id number] / [id number] Procedure: CT - Chest Angio (PE) CPT Code: FULL RESULT: EXAM: CT ANGIOGRAM CHEST EXAM DATE: 07/08/2018 09:02 PM. CLINICAL HISTORY: Shortness of breath. Elevated d-dimer. COMPARISON: None. TECHNIQUE: Routine helical imaging was performed through the chest in the pulmonary arterial phase. IV Contrast: 80 mL Isovue-300. Reconstructions: Coronal 3-D MIP reconstructions.Sagittal and coronal. In accordance with CT protocol optimization, one or more of the following dose reduction techniques were utilized for this exam: automated exposure control, adjustment of mA and/or KV based on patient size, or use of iterative reconstructive technique. FINDINGS: Pulmonary Arteries: Diagnostic quality: Adequate through the segmental arteries. No evidence for acute or chronic pulmonary emboli. RV/LV is within normal limits. There is no interventricular septal bowing. There is no reflux of contrast material in the IVC. Lungs/Pleura: No consolidation, nodules, or edema. No effusions or pneumothorax. Mediastinum: Heart size is normal with no pericardial effusion or adenopathy. Mild mitral annulus calcification is seen. Thoracic Aorta: Unremarkable. Upper Abdomen: Unremarkable. Other: Diffuse degenerative and scoliotic changes are seen in the spine. No acute osseous abnormality is demonstrated. IMPRESSION: No pulmonary embolism or other acute cardiopulmonary abnormality demonstrated. [facility]
[2018-07-08] MEDS: CARVEDILOL 3.125 MG TABLET PO SCH (22:15)
[2018-07-08] MEDS ORDERED: FUROSEMIDE 20 MG/2 ML VIAL IVP ONE (23:00)
[2018-07-08] MEDS: SODIUM CHLORIDE FLUSH 0.9% 10 ML SYRINGE IVP SCH (23:06)
[2018-07-08] MEDS: ACETAMINOPHEN 325 MG TABLET PO PRN (23:34)
--- NOTE | 2018-07-09 02:18 | HISTORY & PHYSICAL EXAMINATION ---
DATE OF SERVICE: 07/08/2018 Physician: Bertha Padilla MD PRIMARY CARE PROVIDER: ELIEZER Navarro. ADMITTING PROVIDER: Bertha Padilla MD. CHIEF COMPLAINT: Shortness of breath. HISTORY OF PRESENT ILLNESS: Patient has a minimal cardiac history. She does not have a diagnosis of hypertension, but does have hyperlipidemia. She does not have diabetes, does not smoke, has a negative family history with regards to cardiac disease. She did have nonspecific chest pain in October 2011, which was evaluated in the emergency room and she was sent home. Troponin at that time was negative. CT of the chest was negative. An EKG had a bundle-branch block. In the summer of 2015, she started developing dyspnea on exertion. She underwent a Josue protocol stress test with her primary care provider and the EKG portion was uninterpretable because of left bundle branch block. But she was able to complete the stress test without recurrence of her shortness of breath. An echocardiogram at that time showed an ejection fraction of 60-65% with no regional wall abnormalities. She had grade 1 diastolic dysfunction. A Holter monitor was then done by Dr. Kingsley Guzman July and for close to 48 hours, she was in normal sinus rhythm with no ectopy. She was then referred to Dr. Kaplan cardiology with [facility], because of continued dyspnea on exertion and he saw her in consultation September 2016. He requested that a Lexiscan be done. The patient states that she had it done up at [facility]. [facility] She verbalizes that her understanding is her Lexiscan stress test was negative. In Dr. Kaplan's note, he does recommend that the patient get a diffusion capacity testing for lungs because of her rheumatoid arthritis history. The patient does not recall that being done and I am not seeing that report in [facility]. Between 11/04/2017 and now, she actually felt like her dyspnea on exertion had gone away. Then in the last two months, she has noticed that she has been getting more and more huffy and puffy. Getting harder to do simple things, like trimming trees. She was working in her yard two months ago and she was unusually tired and turned to go back inside the house and the next thing she knew she was on the ground. She does not remember why she tripped or even if she tripped. She denies loss of consciousness. She has continued to have increasing dyspnea on exertion and it is getting harder to do simple things such as changing the sheets on her bed, or walking to her mailbox and back. This all started about two months ago. There is no antecedent illness, no fever, no chills. No chest pain, no palpitations. Then, a month ago, she started developing mild pedal edema and that has been steadily worse over the last few days. If she sits down all of her symptomatology goes away and she feels perfectly fine. It is only when she gets up and tries to do something such as walking to her mailbox that it all comes back. She finally came to the emergency room today because of the symptomatology. She was evaluated by Dr. Clay and she was found to be hypertensive at 173/125. Temperature 36.3, heart rate 85 and respirations 24. She was 97% on room air. Her EKG had normal sinus rhythm with a left bundle-branch block. Her troponins were negative. She was not anemic. Her BNP was elevated at 1319, he did do a D-dimer, which was 347. This is a tej lady who has inflammatory osteoarthritis that is most likely rheumatoid arthritis causing the elevated D- Dimer. Because of the elevated D-dimer, a CT angiogram was done of the chest. Her lungs do not have consolidation, nodules or edema. Heart size is within normal limits and no pericardial effusion was seen. There were no pulmonary emboli. She is now placed in observation for dyspnea on exertion that may or may not be from new congestive heart failure. In the emergency room, Dr. Clay did give her aspirin, Lasix, and 1/2-inch of 2% nitroglycerin. She had good response with that. When she first walked into the emergency room and had to get down to the gurney, she probably walked about 60 steps and was quite tachypneic and breathing heavily by the time she got to the [place]. With Dr. Clay's intervention, I examined her and found her to be completely comfortable at rest, 100% saturation and a pulse rate in the 80s. She had to go to the bathroom with the Lasix and I watched her get up out of the gurney. I personally walked with her and she held onto my arm as she walked 30 steps to the bathroom. She was not tachypneic, comfortable going to the bathroom. She got up from the commode and then walked back to the [facility] with me another 30 steps. By now her, she was having increased respiratory rate and her O2 saturation had dropped down to 88% on room air. It took her 2 minutes to recover when her pulse rate went from 103-110 down to 80 and her O2 saturation went from 88% up to 100% at rest. PAST MEDICAL HISTORY 1. 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 She began having swollen and tender hand joints in January 2015. She was seen by rheumatology March 2015. She was rheumatoid factor negative, CRISTIANA negative, and her hand films were negative for erosive arthritis. But when rheumatology saw her in March 2015, he repeated those studies. They continued to be negative with an elevated sedimentation rate. Her examination with involvement of joints in the metacarpal region and proximal joint region with swelling and tenderness was compatible with inflammatory osteoarthritis. She was initially treated with steroids and methotrexate by April 2015. MRI was positive of the wrist joints for erosive arthritis. She started developing some nausea, increased belching, and her medicines were stopped in association with a sinus infection. She never resumed the methotrexate. As such, leflunomide was started by the fall and she has been on it since. Her main symptomatology is the base of the thumb joints. Her left hand is particularly painful and she has recently seen a hand surgeon. She has a serpiginous ganglion cyst on the thenar eminence, some erosive arthritis at the metacarpophalangeal joint and may or may not need hand surgery, depending on her wishes. She is not felt to have any lung involvement from her inflammatory lung disease. 2. Degenerative arthritis of the spine. She has lumbar radiculopathy with an occasional left leg pain since 2008. 3. Diffuse osteoarthritis of the shoulders, spine, knees, and hips. Surgeries with this have been: a.Right shoulder had impingement in July 2009 after cleaning the windows in her house. b.She then tore her biceps in the right arm May 2010 and was treated with physical therapy. She continues to have bilateral shoulder pain and impingement. c.She has involvement of knees with an arthroscopic debridement of the right knee December 2006. She fell and injured her right knee in August 2007 and that was treated with physical therapy. She was felt to have medial compartment arthritis of the right knee October 2007 that was medically managed. She then hurt her knee on the left knee in 2013, initially evaluated and treated medically. d. She ended up having a total knee replacement on the left October 2016. e. Hips became symptomatic and she underwent a right total hip replacement January 2018. 4. Irritable bowel syndrome. All of her life, she has had abdominal bloating, gassiness, generalized discomfort, loose stools. Symptoms wax and wane and sometimes crescendo to a very uncomfortable point. She had a colonoscopy in May 2004 which showed sigmoid diverticulosis, but no polyposis. Because she was having increasing symptoms that were make her unhappy, she was re-scoped in February 2011. Again, diverticulosis, internal hemorrhoids, and biopsy did not reveal any microscopic colitis. She has had gluten antibody studies in July 2012 and those were negative. A CT of the abdomen was done May 2014 because of abdominal pain and increasing bloating and that was negative. 5. Reflux disease with a small hiatal hernia. 6. Vitamin D deficiency. 7. History of migraine headaches that are well controlled and rarely happen now. 8. Depression in association with an unhappy marriage. In July 2008, she tried Lexapro for two weeks and never took it again. With her 's five years ago, a lot of the pressure and anxiety associated with that has been gone. 9. Hyperlipidemia. 10. Hypothyroidism. 11. Adenocarcinoma of the left breast. Underwent partial mastectomy in 1980 with left breast reconstruction. She has also had right breast reduction. 12. G4, P3-0-1-3. She has had intermittent hematuria and urinary tract infections over the last few years. When she had pelvic pain and increasing urinary frequency, an ultrasound was done March 2016 and showed a thickened endometrial lining of 8 mm. She was referred to gynecology. She cannot remember why she did not keep that appointment, but has not been seen by gynecology for that. She denies any postmenopausal vaginal bleeding. 13. Scoliosis. 14. Appendectomy. 15. Tonsillectomy. ALLERGIES: SHE IS ALLERGIC TO HYDROCODONE, IT MAKES HER DIZZY. MEDICATIONS 1. Vitamin C 1000 mg daily. 2. Aspirin 81 mg daily. 3. Chlordiazepoxide/clidinium tablet daily. 4. Vitamin D 2000 units daily. 5. Flaxseed oil 1000 mg daily. 6. Plaquenil 200 mg daily. 7. Krill with omega-3 oils capsule daily. 8. L-Lysine 1000 mg daily. 9. Acidophilus 1 capsule daily. 10. Leflunomide 20 mg daily. 11. Synthroid 50 mcg daily. 12. Magnesium 400 mg daily. 13. Multivitamin with calcium and iron and mineral tablet daily. 14. Naproxen 220 mg p.o. b.i.d. p.r.n. 15. Prednisone 5 mg daily. 16. Vitamin E 100 units p.o. daily. SOCIAL HISTORY: She was born in [place] and eventually a gentleman who ended up taking her to [place]. 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 From [place], she and her moved to [place] as he neared intermediate. The marriage was unhappy and they moved back to [place] and she ended up him. She ended up having three sons with him. She then remarried her second . They moved to [facility] in an effort to avoid his disapproving children. They did not like the fact that he got to her and it was just easier to live farther away from them. They lived on [facility] for many years now and he five years ago. She lives in her own home. Still drives, pays the bills, and would love to have a cleaning lady come help her clean the house, but has not been able to find one recently. She started smoking around the age of 18, which was 1957. She quit smoking in 1965 with the of her son. She rarely drinks alcohol. Never had a problem with alcohol abuse. Never had a problem with recreational substance abuse. Her three sons all live away; one lives in [place], [place]; one son lives in [place], [place]; and the other son lives in [place], [place] when he is not living in [facility]. That son is a reading coach for the [employer]. Her power of cpht is her middle son, Guille. Her oldest son is the executor of her state when she dies. CODE STATUS: DO NOT RESUSCITATE. She has an advanced directive dated from May 2011, a living will from October 2013 and a POLST form from November 2013. The POLST form states that she is DO NOT RESUSCITATE with comfort measures to be emphasized. I asked her about all of these documents and she says that as far as she knows, they are up-to-date. With the advanced directive, her was initially the durable power of cpht. With his , it is now the middle son, Guille, who is a durable power of cpht and she concurs with that. FAMILY HISTORY: Both her parents were heavy drinkers and smokers and of complications of emphysema and were on oxygen toward their . She says they in their late 70s/early 80s. She has one sister who recently . She was also a heavy smoker. She ended up having a hip replacement and of complications of a wound infection. Her one brother is still alive, three years older than her, and "he is starting to look really old," but she does not feel he has any major medical issues. Her three sons are healthy. There is no cancer, heart attack, stroke, diabetes, autoimmune disease in them. REVIEW OF SYSTEMS CONSTITUTIONAL: On general review of her life, her arthritis is what limits her more than anything else, especially in her shoulders and back. But there has been no unanticipated weight changes, no fevers, no sweats. ENT: She has presbyopia, astigmatism, early senile cataracts. She wears glasses. Occasionally, her mouth is dry. No gingivitis or dental problems. No dysphagia. No facial dysesthesias. PULMONARY: Denies coughing, chest congestion, bronchitis, phlegm production. CARDIAC: Positive as above. GASTROINTESTINAL: Constant nausea, dyspepsia, abdominal bloating, generalized discomfort made worse by eating. Easy loose stools. No blood in her stool. No change in the color of her stool. GENITOURINARY: Denies dysuria at this time. No hematuria at this time. She does have urgency and frequency that comes and goes. No postmenopausal bleeding. She has left flank pain for the last two weeks that is new. She does not know where it came from. She does not think it is related to a fall from two months ago. SKIN: No rashes, new lesions, moles. JOINTS: Everything hurts. Thoracic spine from scoliosis, lumbar spine with this radiculopathy. Her hands, especially at the thumb metacarpal joints, are quite painful. Wrist are painful, shoulders are painful. Hips are much better than they have been in the past. Both knees are stiff and feet ache. All of these are chronic complaints and are not new. Joint destruction is stable. She does not feel like her joints are any more destroyed than usual. PSYCHIATRIC: She had quite a bit of depression before her . It was a demanding marriage and sometime she felt that she was trapped; but with his , and the support of a good friend who is with her tonight, she leads a quite contented and happy life. She spends a lot of time with girlfriends. Sons come visit her on a regular basis. Middle son, Guille, is getting ready to visit her for a week in July. She denies suicidal ideation, hallucinations. CENTRAL NERVOUS SYSTEM: She endorses being a little forgetful these days, but she has not forgotten paying bills. No one has pointed out to her that something is being undone. She has bilateral tremors in her upper extremities and hands. This started in the spring. She was seen by neurology at that time and was felt to have metabolic or toxic tremors from either some of her medication effects or overtreated hypothyroidism. Medications were adjusted. She saw the neurologist again in July 2016 and there has been no change in opinion or treatment. She has been tried on propranolol, Keppra and nothing makes her hand tremors better. She is not felt to have Parkinson's disease. Maybe, may be early essential tremors. She has frequent episodes of dizziness and has been seen in the office multiple times for this. It happens several times a year. Has been ongoing for years. No diagnosis given. PHYSICAL EXAMINATION VITAL SIGNS: On examination, she is a delightful, slender elderly female who looks her stated age with a temperature of 36.4, pulse 73, blood pressure 141/82, respirations 14 and 100% on room air. As already stated, when I walked her the 30 feet from the toilet back to her gurney, she dropped her O2 saturations to 88%, 89% on room air. Respiratory rate went up to 25. Pulse went up to 103-118. She recovers very quickly at 2 minutes. GENERAL: She is a slender elderly female who looks her stated age. Alert, cheerful, and just really a delight to talk to. HEENT: Head and neck exam shows her to be wearing glasses. Pupils are reactive. Oral mucosa pink and moist. No facial asymmetry. Speech is normal. She is quite hungry and is eating a turkey sandwich when she gets to med/surg without any problems with chewing or swallowing. NECK: Has JVD that is jail up at 45 degrees setting, but no goiter, no bruits and she does have shotty adenopathy. LUNGS: No tachypnea and she is quite comfortable at rest. She was reported to have trace rales at the bases in the ER. My exam has no crackles, rhonchi or wheezing. HEART: PMI is normally placed with a regular rate and rhythm and a soft systolic ejection murmur at the left lower sternal border. Chest wall is showing surgical changes from her breast reduction and left breast reconstruction. Nitroglycerin patch is in the right upper chest wall. ABDOMEN: Soft, nontender. No fluid wave. No masses palpable. EXTREMITIES: Have rheumatoid or inflammatory arthritis changes of the metacarpal joints with the thumbs of both hands severely involved, then the index finger, to a lesser extent digits 3, 4, and 5 of both hands. No swan neck deformities yet. On the left hand at the thenar eminence, she has a chain of ganglion cysts that are about 6 long, quite unusual. I am used to seeing one ganglion cyst at a time, these seem to be several of them chained together. She has diminished range of motion in the shoulders. She cannot abduct greater than about 80 degrees in both arms on active range of motion. Hand grasp strength is diminished in both hands because of the joint pain in both thumbs. But in examining the joints, there is no heat or swelling in the shoulders, elbows, wrist, knees, or ankles. She does not have clubbing, cyanosis or edema. NEUROLOGIC: She is alert and oriented to person, place and time. Occasionally, she has to stop, struggle to remember an event, but is able to give a lucid history. Cranial nerves II-XII appear grossly intact. Upper extremity strength is about 4+/5+. It is an effort for her to lift her arms above her head and I have to help her because of pain in the shoulder and cannot keep her arms above her head very long. Hand grasp strength is diminished. She is able to lift her legs off the bed, able to transfer herself to a sitting position without an assist and walk unassisted. Leg strength is at 5/5. Her generalized strength reduction in her upper extremities is bilateral and symmetrical. Appears to be more from joint disease than neurological disease. There is a very slight resting tremor of the right hand, worse in the left hand. It is stable with intention. There is no cogwheel rigidity. LABORATORY DATA: D-dimer is 347.4. CBC is normal. CMP is normal with a GFR of 69. Troponin of less than 0.04. BNP 1319. IMAGING STUDIES: Chest x-ray has borderline cardiomegaly, thoracic aortic tortuosity, but no acute intrathoracic abnormalities. CT pulmonary angiogram already discussed. ASSESSMENT/PLAN 1. Dyspnea on exertion. This has been getting progressively worse over the last two months with increasing leg edema. She is hypoxic with it, tachypneic with it. Recovers quickly at about 2 minutes. This is all certainly indicative of acute systolic congestive heart failure, but this tej female had an echocardiogram in 2016 that was negative other than grade I diastolic dysfunction. She has had no antecedent events between then and now such as an ND or arrhythmia. Her previous echocardiogram did not have valvular heart disease. She has responded nicely to the treatment for acute CHF and hypertension in the form of nitrates and Lasix. Plan: a. Place patient in observation status. b. Attestation: The patient will be in the hospital less than 96 hours. c. Give one more dose of Lasix overnight IV. Start Coreg 3.125 p.o. b.i.d. In the morning, consider lisinopril after her echocardiogram. e. Echocardiogram. I would really like to confirm if she has new regional wall abnormalities or reduction in her ejection fraction. I do not want to necessarily commit her to congestive heart failure core measure drugs permanently until I see that echo. f. It was also recommended that she get a diffusion capacity after seeing Dr. Kaplan in September 2016. Would recommend that again. I will see if respiratory is able to do those before she leaves. 2. Hypertension. She does not carry a diagnosis of hypertension per her own personal history or the history of the EMR. She has come down from the 173/125 to 141/82 with the two doses of Lasix, the nitroglycerin, and one dose of Coreg. Tomorrow morning, she will get lisinopril 5 mg. We would like to hold that off until she gets her echocardiogram. At discharge, would consider keeping her on the Coreg and the Lasix. Continue lisinopril if echocardiogram confirms reduced ejection fraction. 3. Left flank pain history. Check renal ultrasound. Check UA. 4. History of abnormal pelvic ultrasound with thickened uterine lining. Reconfirm why she did not get her visit with gynecology. She remembers getting the ultrasound, and she thinks she got the results, but cannot remember why she did not keep the appointment; but then she says she does not even remember if she was referred. [facility], she was referred. 5. Seronegative rheumatoid arthritis. Continue prednisone 5 mg, Plaquenil while here. I do not think she needs stress-dose steroids at this time. 6. DO NOT RESUSCITATE status per her POLST form. 7. Deep venous thrombosis prophylaxis will be PAULINO frank. The patient is still ambulatory. She is considered low risk. She has already been ambulating in the emergency room and in her room here at the hospital, walking to the bathroom without assist. TD: 07/09/2018 00:27 GLADIS
[2018-07-09 03:42] LABS: BILIRUBIN,URINE NEGATIVE (NEGATIVE); GLUCOSE, URINE (UA) NEGATIVE (NEGATIVE); KETONES,URINE (UA) NEGATIVE (NEGATIVE); LEUKOCYTE ESTERASE, URINE NEGATIVE (NEGATIVE); NITRITE,URINE NEGATIVE (NEGATIVE); OCCULT BLOOD,URINE NEGATIVE (NEGATIVE); PROTEIN,URINE NEGATIVE (NEGATIVE); UROBILINOGEN,URINE 0.2 (NORMAL) E.U./dL (NORMAL)
[2018-07-09 03:48] LABS: BACTERIA,URINE None Seen /HPF (None Seen); CLARITY,URINE CLEAR (CLEAR); RBC,URINE 0-5 /HPF (0-5); SQUAMOUS EPITHELIAL CELL,UR RARE Squamous (<= Few)
[2018-07-09 05:23] LABS: CALCIUM 8.9 mg/dL (8.5-10.3); CREATININE 0.8 mg/dL (0.4-1.0)
[2018-07-09] MEDS ORDERED: LEVOTHYROXINE 25 MCG TABLET PO SCH (07:00)
[2018-07-09] MEDS ORDERED: LISINOPRIL 5 MG TABLET PO ONE (07:00)
[2018-07-09] MEDS ORDERED: ASPIRIN EC 81 MG TABLET PO SCH (08:00)
[2018-07-09 08:24] VITALS: BP 113/64
[2018-07-09] MEDS ORDERED: POTASSIUM CHLORIDE 20 MEQ TABLET PO ONE (08:28)
[2018-07-09] MEDS: ACETAMINOPHEN 325 MG TABLET PO PRN (08:42)
[2018-07-09] MEDS: CARVEDILOL 3.125 MG TABLET PO SCH (08:42)
[2018-07-09] MEDS ORDERED: MAGNESIUM OXIDE 400 MG TABLET PO SCH (09:00)
[2018-07-09] MEDS ORDERED: HYDROXYCHLOROQUINE 200 MG TABLET PO SCH (09:00)
[2018-07-09] MEDS ORDERED: POLYETHYLENE GLYCOL 3350 17 GM PACKET PO SCH (09:00)
[2018-07-09] MEDS: SODIUM CHLORIDE FLUSH 0.9% 10 ML SYRINGE IVP SCH (11:38)
[2018-07-09] MEDS ORDERED: predniSONE 5 MG TABLET PO SCH (12:00)
[2018-07-09] MEDS ORDERED: LEFLUNOMIDE 20 MG PO SCH (14:00)
--- NOTE | 2018-07-09 17:44 | Ultrasound Report ---
Reason: left flank pain x 2 weeks, BP 170/120 Procedure Date: 07/09/2018 Accession Number: [id number] / [id number] Procedure: US - Retroperitoneal CPT Code: FULL RESULT: EXAM: RENAL ULTRASOUND EXAM DATE: 07/09/2018 12:47 PM. CLINICAL HISTORY: Left flank pain x 2 weeks, BP 170/120. COMPARISON: ABDOMEN/PELVIS W/O 05/13/2017 12:20 PM. TECHNIQUE: Real-time scanning was performed with static images obtained. FINDINGS: Right Kidney: 10.4 x 4.9 x 4.4 cm. Normal echotexture with no stones, contour-deforming masses, or hydronephrosis. Left Kidney: 10.9 x 5.4 x 4.6 cm. Normal echotexture with no stones, contour-deforming masses, or hydronephrosis. Bladder: Bilateral jets seen. The prevoid bladder volume was 104 cc. The postvoid bladder volume was 0 cc. Other: None. IMPRESSION: Normal renal ultrasound. RADIA
--- NOTE | 2018-07-09 20:37 | PROVIDER PROGRESS NOTE ---
Hospitalist Cross-cover Note - Cross-Cover Note Cross-Cover Note: today afternoon around 4pm, when I tried to check if pt's US of retroperitoneum was done, pt's information in computer disappeared. I was very surprised about that. I did not discharge pt. I went to see pt. Pt's Nurse told me pt was discharged. I stated I did not discharge pt. Nurse told me the nurse tech gave her some paper for discharge. I never ordered and discharged pt at the [facility]. Finally Nurse found out the nurse tech printed wrong pt for discharge. But the nurse did not check the paper carefully and did not review if pt has the order for discharge. But pt already left hospital. Before this incident happened, I already discussed with pt about the new finding of her ECHO. I already advised pt follow up her continuity writer closely, and follow up her PCP closely as well. I also discussed with pt about four medications, Coreg, Lisinopril, Lasix and potassium which I will prescribe to her. After this incidence happened, I prescribed these four medications and e-send to her pharmacy for pt. I reported this incidence to nurse filing and polishing supervisor and Dr. Rogers, and will report to Dr. Padilla.
--- NOTE | 2018-08-06 14:36 | DISCHARGE SUMMARY ---
Discharge Summary Condition at Discharge: Fair Discharge Disposition: 01 Home, Self Care - DIAGNOSES Discharge Diagnoses with Status of Each Condition: I did not discharge pt, pt was discharged by nurse without discharge order. medical record department asks me for discharge diagnosis discharge diagnosis: dyspnea on exertion, improved, followup PCP in one weeks. 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 hypothyroidism, stable, follow up PCP - ALLERGIES Allergies/Adverse Reactions: Allergies Allergy/AdvReac Type Severity Reaction Status Date / Time hydrocodone AdvReac Dizziness Verified 07/08/18 17:36 - MEDICATIONS Home Medications: Ambulatory Orders Medication Instructions Recorded Confirmed Chlordiazepoxide/Clidinium Br 1 each PO BID PRN 11/18/13 07/09/18 [Chlordiazepoxide-Clidinium Cap] Ascorbic Acid [Vitamin C] 1,000 mg PO DAILY 08/07/17 07/09/18 Cholecalciferol (Vitamin D3) 2,000 unit PO DAILY 08/07/17 07/09/18 [Vitamin D3] Flaxseed Oil 1,000 mg PO DAILY 08/07/17 07/09/18 Krill/[place]-3/Dha/Epa/Lipids 1 cap PO DAILY 08/07/17 07/09/18 [Krill Oil 350 mg Softgel] L. Acidophilus/L. Rhamnosus 1 each PO DAILY 08/07/17 07/09/18 [Probiotic 15 Billion Cell Cap] Leflunomide 20 mg PO DAILY 08/07/17 07/09/18 Magnesium 400 mg PO DAILY 08/07/17 07/09/18 Multivit with Calcium,Iron,Min 1 tab PO DAILY 08/07/17 07/09/18 [Multiple Vitamins For Women] Vitamin E 100 unit PO DAILY 08/07/17 07/09/18 Aspirin [Aspirin EC] 81 mg PO QPM 11/11/17 07/09/18 Hydroxychloroquine [Plaquenil] 200 mg PO BID 07/08/18 07/09/18 Naproxen Sodium [Aleve] 440 mg PO DAILY PRN 07/08/18 07/09/18 Activated Charcoal [Charcoal] 400 mg PO DAILY 07/09/18 07/09/18 Carvedilol [Coreg] 3.125 mg PO BID #30 tablet 07/09/18 Furosemide [Lasix] 20 mg PO DAILY #15 tablet 07/09/18 Hydrocodone/Acetaminophen 0.5 - 1 each PO BID PRN 07/09/18 07/09/18 [Hydrocodone-Acetamin 5-325 mg] Levothyroxine Sodium [Synthroid] 50 mcg PO QDAC 07/09/18 07/09/18 Lidocaine HCl/Menthol [Icy Hot 1 applic TOP DAILY PRN 07/09/18 07/09/18 4%-1% Cream] Lisinopril 5 mg PO DAILY #15 tablet 07/09/18 Potassium Chloride 10 meq PO DAILY #15 tab.er.prt 07/09/18 Prednisone 5 mg PO DAILY 07/09/18 07/09/18 - LABS Result Diagrams: 07/08/18 18:20 07/09/18 04:55
== END 2018-07-09 15:10 | disposition home or self-care (01) ==
LOC: ED 17:26 → MS3 21:09
PROVIDERS: ADMIT Specialist; ATTEND Specialist
DX: I11.0 Hypertensive heart disease with heart failure (principal); I50.20 Unspecified systolic (congestive) heart failure; E03.9 Hypothyroidism, unspecified; M06.9 Rheumatoid arthritis, unspecified; Z87.891 Personal history of nicotine dependence; K21.9 Gastro-esophageal reflux disease without esophagitis; K44.9 Diaphragmatic hernia without obstruction or gangrene; E78.5 Hyperlipidemia, unspecified; Z85.3 Personal history of malignant neoplasm of breast; M47.26 Other spondylosis with radiculopathy, lumbar region; M67.442 Ganglion, left hand; R10.9 Unspecified abdominal pain; R09.89 Other specified symptoms and signs involving the circulatory and respiratory systems; M19.011 Primary osteoarthritis, right shoulder; Z66 Do not resuscitate; M19.012 Primary osteoarthritis, left shoulder; M17.0 Bilateral primary osteoarthritis of knee; M16.0 Bilateral primary osteoarthritis of hip; R60.0 Localized edema; M15.4 Erosive (osteo)arthritis; K58.9 Irritable bowel syndrome, unspecified; M41.9 Scoliosis, unspecified; E55.9 Vitamin D deficiency, unspecified; Z79.899 Other long term (current) drug therapy
CPT/HCPCS: 36415; 71046; 71275; 76770; 80048; 80053; 81001; 83690; 83880; 84484; 85025; 85379; 93005; 93306; 96374; 96375; 96376; 96413; 96415; 99284; A9270; G0378; G0463; J1745; J7512; Q9967; 87086; 99211

== ENCOUNTER 2018-07-13 10:20 | Outpatient (CLI) | payer MEDICARE, OTHER ==
[2018-07-13 18:58] LABS: CALCIUM 9.1 mg/dL (8.5-10.3); CREATININE 0.7 mg/dL (0.4-1.0)
== END 2018-07-13 10:21 ==
LOC: LAB.WCP 10:20
PROVIDERS: ATTEND Nurse Practitioner
DX: I50.9 Heart failure, unspecified (principal)
CPT/HCPCS: 80048; 83880

== ENCOUNTER 2018-07-29 10:43 | Outpatient (CLI) | payer MEDICARE, OTHER ==
[2018-07-29 11:07] LABS: HGB - HEMOGLOBIN 13.8 g/dL (12.0-16.0); MEAN CORPUSCULAR HEMOGLOBIN 31.8 pg (27.0-31.0); MEAN CORPUSCULAR HGB CONC 34.4 g/dL (32.0-36.0); MEAN CORPUSCULAR VOLUME 92.5 fL (81.0-99.0); MEAN PLATELET VOLUME 7.6 fL (7.9-10.8); RED BLOOD COUNT 4.35 10^6/uL (4.20-5.40); RED CELL DISTRIBUTION WIDTH 14.5 % (12.0-15.0); WHITE BLOOD COUNT 7.8 x10^3/uL (4.8-10.8)
[2018-07-29 11:48] LABS: CREATININE 0.8 mg/dL (0.4-1.0)
== END 2018-07-29 10:44 | disposition home or self-care (01) ==
LOC: LAB 10:43
PROVIDERS: ATTEND Internal Medicine Cardiovascular Disease
DX: I50.22 Chronic systolic (congestive) heart failure (principal)
CPT/HCPCS: 36415; 80048; 85027

== ENCOUNTER 2018-09-03 13:02 | Outpatient (CLI) | payer MEDICARE, OTHER ==
[2018-09-03 13:33] LABS: CALCIUM 9.4 mg/dL (8.5-10.3); CREATININE 0.9 mg/dL (0.4-1.0)
== END 2018-09-03 13:03 | disposition home or self-care (01) ==
LOC: LAB 13:02
PROVIDERS: ATTEND Internal Medicine Cardiovascular Disease
DX: I50.22 Chronic systolic (congestive) heart failure (principal)
CPT/HCPCS: 36415; 80048

== ENCOUNTER 2018-09-17 09:05 | Outpatient (CLI) | payer MEDICARE, OTHER ==
[2018-09-17 09:28] LABS: BASOPHILS # (AUTO) 0.1 10^3/uL (0.0-0.1); BASOPHILS % (AUTO) 2.1 %; EOSINOPHILS # (AUTO) 0.3 10^3/uL (0.0-0.7); EOSINOPHILS % (AUTO) 6.9 %; HGB - HEMOGLOBIN 12.5 g/dL (12.0-16.0); LYMPHOCYTES # (AUTO) 1.4 10^3/uL (1.5-3.5); LYMPHOCYTES % (AUTO) 31.5 %; MEAN CORPUSCULAR HEMOGLOBIN 31.9 pg (27.0-31.0); MEAN CORPUSCULAR HGB CONC 34.4 g/dL (32.0-36.0); MEAN CORPUSCULAR VOLUME 92.6 fL (81.0-99.0); MEAN PLATELET VOLUME 7.4 fL (7.9-10.8); MONOCYTES # (AUTO) 0.7 10^3/uL (0.0-1.0); MONOCYTES % (AUTO) 14.9 %; NEUTROPHILS % (AUTO) 44.6 %; PLT - PLATELET COUNT 242 10^3/uL (130-450); RED BLOOD COUNT 3.93 10^6/uL (4.20-5.40); RED CELL DISTRIBUTION WIDTH 14.6 % (12.0-15.0); WHITE BLOOD COUNT 4.4 x10^3/uL (4.8-10.8)
[2018-09-17 09:40] LABS: ALBUMIN 3.5 g/dL (3.2-5.5); ALBUMIN/GLOBULIN RATIO 1.3 (1.0-2.2); BILIRUBIN,TOTAL 0.6 mg/dL (0.2-1.0); CALCIUM 8.9 mg/dL (8.5-10.3); CREATININE 0.9 mg/dL (0.4-1.0); TOTAL PROTEIN 6.1 g/dL (6.7-8.2)
== END 2018-09-17 09:06 | disposition home or self-care (01) ==
LOC: LAB 09:05
PROVIDERS: ATTEND Internal Medicine Rheumatology
DX: M06.4 Inflammatory polyarthropathy (principal); M06.9 Rheumatoid arthritis, unspecified
CPT/HCPCS: 36415; 80053; 85025; 85651

== ENCOUNTER 2018-11-01 08:53 | Outpatient (CLI) | payer MEDICARE, OTHER | END 2018-11-01 08:54 | disposition home or self-care (01) | LOC: DI 08:53 | PROVIDERS: ATTEND Internal Medicine Cardiovascular Disease | DX: I50.22 Chronic systolic (congestive) heart failure (principal); I08.0 Rheumatic disorders of both mitral and aortic valves | CPT/HCPCS: 93308 ==

== ENCOUNTER 2018-12-03 08:16 | Outpatient (CLI) | payer MEDICARE, OTHER ==
[2018-12-03 08:30] LABS: BASOPHILS # (AUTO) 0.1 10^3/uL (0.0-0.1); BASOPHILS % (AUTO) 0.9 %; EOSINOPHILS # (AUTO) 0.2 10^3/uL (0.0-0.7); EOSINOPHILS % (AUTO) 2.5 %; HGB - HEMOGLOBIN 13.5 g/dL (12.0-16.0); LYMPHOCYTES # (AUTO) 2.8 10^3/uL (1.5-3.5); MEAN CORPUSCULAR HEMOGLOBIN 31.7 pg (27.0-31.0); MEAN CORPUSCULAR HGB CONC 32.8 g/dL (32.0-36.0); MEAN CORPUSCULAR VOLUME 96.6 fL (81.0-99.0); MEAN PLATELET VOLUME 7.8 fL (7.9-10.8); MONOCYTES # (AUTO) 0.8 10^3/uL (0.0-1.0); MONOCYTES % (AUTO) 8.1 %; NEUTROPHILS # (AUTO) 5.5 10^3/uL (1.5-6.6); NEUTROPHILS % (AUTO) 58.5 %; PLT - PLATELET COUNT 300 10^3/uL (130-450); RED BLOOD COUNT 4.27 10^6/uL (4.20-5.40); RED CELL DISTRIBUTION WIDTH 14.4 % (12.0-15.0); WHITE BLOOD COUNT 9.4 x10^3/uL (4.8-10.8)
[2018-12-03 08:42] LABS: ALBUMIN 3.7 g/dL (3.2-5.5); ALBUMIN/GLOBULIN RATIO 1.4 (1.0-2.2); BILIRUBIN,TOTAL 0.7 mg/dL (0.2-1.0); CREATININE 0.8 mg/dL (0.4-1.0); TOTAL PROTEIN 6.3 g/dL (6.7-8.2)
== END 2018-12-03 08:17 | disposition home or self-care (01) ==
LOC: LAB 08:16
PROVIDERS: ATTEND Internal Medicine Rheumatology
DX: M06.9 Rheumatoid arthritis, unspecified (principal)
CPT/HCPCS: 36415; 80053; 85025; 85651

== ENCOUNTER 2019-02-16 08:10 | Outpatient (CLI) | payer MEDICARE, OTHER | END 2019-02-16 08:11 | disposition home or self-care (01) | LOC: DI 08:10 | PROVIDERS: ATTEND Internal Medicine Cardiovascular Disease | DX: I50.22 Chronic systolic (congestive) heart failure (principal); I51.7 Cardiomegaly | CPT/HCPCS: 93308 ==

== ENCOUNTER 2019-03-17 10:49 | Outpatient (CLI) | payer MEDICARE, OTHER ==
[2019-03-17 11:13] LABS: CALCIUM 9.4 mg/dL (8.5-10.3)
== END 2019-03-17 10:50 | disposition home or self-care (01) ==
LOC: LAB 10:49
PROVIDERS: ATTEND Internal Medicine Cardiovascular Disease
DX: I50.22 Chronic systolic (congestive) heart failure (principal)
CPT/HCPCS: 36415; 80048; 83880

== ENCOUNTER 2019-04-27 13:56 | Outpatient (CLI) | payer MEDICARE, OTHER ==
--- NOTE | 2019-04-27 16:02 | XRAY Report ---
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 EXAM DATE: 04/27/2019 02:25 PM. CLINICAL HISTORY: Screen for tuberculosis, senior care drug therapy. COMPARISON: CHEST 2 VIEW 07/08/2018 6:01 PM. TECHNIQUE: 2 views. FINDINGS: Lungs/Pleura: No focal consolidative airspace disease or pulmonary edema is detected. Lung volumes are top normal with mild flattening of diaphragms, stable finding. Pleural spaces demonstrate no sizable effusion or pneumothorax. Mediastinum: Markedly tortuous thoracic aorta and mild borderline cardiomegaly are essentially unchanged. Central pulmonary arteries remain prominent. Other: None. IMPRESSION: Stable exam with no evidence of acute airspace disease. Stable mild flattening of diaphragms, correlate to possible obstructive lung disease. RADIA
== END 2019-04-27 13:57 | disposition home or self-care (01) ==
LOC: DI 13:56
PROVIDERS: ATTEND Internal Medicine Rheumatology
DX: Z11.1 Encounter for screening for respiratory tuberculosis (principal); Z79.899 Other long term (current) drug therapy
CPT/HCPCS: 71046

== ENCOUNTER 2019-07-15 08:53 | Outpatient (CLI) | payer MEDICARE, OTHER ==
--- NOTE | 2019-07-21 07:51 | DEXA Report ---
Reason: POSTMENOPAUSAL Procedure Date: 07/15/2019 Accession Number: [id number] / [id number] Procedure: DEX - Dexa Spine and/or Hip CPT Code: FULL RESULT: EXAM: Dexa Spine and/or Hip DATE: 07/15/2019 9:33 AM CLINICAL HISTORY: POSTMENOPAUSAL TECHNIQUE: Dual energy x-ray absorptiometry (DXA) was performed on a Dynadec System. Regions measured are the AP Spine, femoral neck, and if needed forearm. COMPARISON: 07/03/2017 In accordance with the International Society for Clinical Densitometry (ISCD) guidelines, data from previous exams may be reanalyzed using current recommendations and techniques. This is done to allow a more accurate basis for comparison with the current study. FINDINGS: The data for the lumbar spine is as follows: BMD (g/cm/cm) T-SCORE Z-SCORE REGION L1 1.251 1.0 3.0 L2 1.627 3.6 5.6 L3 1.324 1.0 3.1 L4 1.253 0.4 2.5 TOTAL 1.358 1.5 3.5 NOTE: All evaluable vertebrae are used for classification The data for the hip is as follows: BMD (g/cm/cm) T-SCORE Z-SCORE REGION Neck 1.082 0.3 2.6 TOTAL 1.163 1.2 3.3 NOTE: The femoral neck or total proximal femur, whichever is lowest, is used for classification. The data for the forearm is as follows: DXA RESULTS SUMMARY: Spine SCAN DATE AGE BMD CHANGE VS CHANGE VS PREVIOUS PREVIOUS % 07[age]15/2019 [age] 1.358 -0.001 -0.1 07/03/2017 [age] 1.359 * Denotes significant change at the 95% confidence level. Denotes dissimilar scan types or analysis methods. DXA RESULTS SUMMARY: Hip SCAN DATE AGE BMD CHANGE VS CHANGE VS PREVIOUS PREVIOUS % 7/[birth year]/2019 79.3 1.163 0.035* 3.1* 07/03/2017 77.2 1.128 * Denotes significant change at the 95% confidence level. Denotes dissimilar scan types or analysis methods. IMPRESSION: THE WHO CLASSIFICATION BASED ON THE INTERNATIONAL REFERENCE STANDARD IS NORMAL. THE FRACTURE RISK IS NOT INCREASED. RECOMMENDATION: Patients with diagnosis of osteoporosis or osteopenia should have regular bone mineral density assessment. For those eligible for Medicare, routine testing is allowed once every 2 years. Testing frequency can be increased for patients who have rapidly progressing disease or for those who are receiving medical therapy to restore bone mass. COMMENT: World Health Organization (WHO) definitions for osteoporosis and osteopenia: NORMAL BMD: T-score at -1.0 or higher, fracture risk is low OSTEOPENIA BMD: T-score between -1.0 and -2.5, fracture risk is increased. OSTEOPOROSIS BMD: T-score at -2.5 or lower, fracture risk is high. National Osteoporosis Foundation recommends: 1. Obtain adequate dietary calcium (at least 1200 mg per day) and vitamin D (400-800 international units per day). 2. Participate, as appropriate, in regular weightbearing and muscle-strengthening exercise. 3. Avoid tobacco use and reduce alcohol and caffeine intake. 4. For more detailed information see the website at www.NOF.org.
== END 2019-07-15 08:54 | disposition home or self-care (01) ==
LOC: DI 08:53
PROVIDERS: ATTEND Physician Assistant Medical
DX: Z78.0 Asymptomatic menopausal state (principal)
CPT/HCPCS: 77080

== ENCOUNTER 2019-10-26 07:00 | Outpatient (CLI) | payer MEDICARE, OTHER ==
[2019-10-26 18:11] LABS: BASOPHILS # (AUTO) 0.1 10^3/uL (0.0-0.1); BASOPHILS % (AUTO) 1.4 %; EOSINOPHILS # (AUTO) 0.2 10^3/uL (0.0-0.7); EOSINOPHILS % (AUTO) 3.4 %; HGB - HEMOGLOBIN 12.3 g/dL (12.0-16.0); LYMPHOCYTES # (AUTO) 2.3 10^3/uL (1.5-3.5); LYMPHOCYTES % (AUTO) 38.9 %; MEAN CORPUSCULAR HEMOGLOBIN 30.8 pg (27.0-31.0); MEAN CORPUSCULAR HGB CONC 31.9 g/dL (32.0-36.0); MEAN CORPUSCULAR VOLUME 96.7 fL (81.0-99.0); MEAN PLATELET VOLUME 10.7 fL (7.9-10.8); MONOCYTES # (AUTO) 0.6 10^3/uL (0.0-1.0); MONOCYTES % (AUTO) 9.5 %; NEUTROPHILS # (AUTO) 2.8 10^3/uL (1.5-6.6); NEUTROPHILS % (AUTO) 46.5 %; PLT - PLATELET COUNT 240 10^3/uL (130-450); RED BLOOD COUNT 3.99 10^6/uL (4.20-5.40); RED CELL DISTRIBUTION WIDTH 13.8 % (12.0-15.0); WHITE BLOOD COUNT 5.9 x10^3/uL (4.8-10.8)
[2019-10-26 18:25] LABS: ALBUMIN 3.9 g/dL (3.2-5.5); ALBUMIN/GLOBULIN RATIO 1.9 (1.0-2.2); BILIRUBIN,TOTAL 0.9 mg/dL (0.2-1.0); CALCIUM 9.2 mg/dL (8.5-10.3); CREATININE 1.4 mg/dL (0.4-1.0)
== END 2019-10-26 23:59 | disposition home or self-care (01) ==
LOC: LAB.WCP 07:00
PROVIDERS: ATTEND Physician Assistant Medical
DX: M06.9 Rheumatoid arthritis, unspecified (principal)
CPT/HCPCS: 36415; 80053; 81599; 85025; 85651; 86480

== ENCOUNTER 2019-10-26 08:59 | Outpatient (CLI) | payer MEDICARE, OTHER ==
--- NOTE | 2019-10-26 21:09 | XRAY Report ---
Reason: EXERTIONAL DYSPNEA Procedure Date: 10/26/2019 Accession Number: [id number] / [id number] Procedure: XR - Chest 2 View X-Ray CPT Code: 07923 Final Report FULL RESULT: EXAM: CHEST RADIOGRAPHY EXAM DATE: 10/26/2019 09:03 AM. CLINICAL HISTORY: EXERTIONAL DYSPNEA. COMPARISON: CHEST 2 VIEW 04/27/2019 2:01 PM. TECHNIQUE: 2 views. FINDINGS: Lungs/Pleura: No focal opacities evident. No pleural effusion. No pneumothorax. Normal volumes. Mediastinum: Heart and mediastinal contours are unremarkable. Other: Bilateral breast implants. Mild multi-curvature thoracic scoliosis. Right anterior shoulder dislocation, as before. IMPRESSION: 1. Lungs are clear. 2. Right anterior shoulder dislocation, as before. RADIA
== END 2019-10-26 09:00 | disposition home or self-care (01) ==
LOC: DI 08:59
PROVIDERS: ATTEND Physician Assistant Medical
DX: R06.09 Other forms of dyspnea (principal); S43.004A Unspecified dislocation of right shoulder joint, initial encounter; M06.9 Rheumatoid arthritis, unspecified
CPT/HCPCS: 36415; 71046; 80053; 81599; 85025; 85651; 86480

== ENCOUNTER 2019-11-06 13:15 | Outpatient (CLI) | payer MEDICARE, OTHER ==
[~2019-11-06 13:15] MED LIST changes: +ALBUTEROL NEB 2.5 MG/3 ML INH ONE; -INFLIXIMAB IV ONE; -SODIUM CHLORIDE 0.9% IV ONE; -SODIUM CHLORIDE FLUSH 0.9% 10 ML SYRINGE IVP ONE
== END 2019-11-06 13:16 | disposition home or self-care (01) ==
LOC: RT 13:15
PROVIDERS: ATTEND Physician Assistant Medical
DX: R06.09 Other forms of dyspnea (principal)
CPT/HCPCS: 94010

== ENCOUNTER 2019-11-11 09:24 | Outpatient (CLI) | payer MEDICARE, OTHER | END 2019-11-11 09:25 | disposition home or self-care (01) | LOC: LAB 09:24 | PROVIDERS: ATTEND Internal Medicine Cardiovascular Disease | DX: I50.22 Chronic systolic (congestive) heart failure (principal); R06.02 Shortness of breath | CPT/HCPCS: 36415; 83880 ==

== ENCOUNTER 2019-12-08 14:24 | Outpatient (CLI) | payer MEDICARE, OTHER ==
[2019-12-08] MEDS ORDERED: IOVERSOL 320 100 ML VIAL IVP ONE ×2 (14:45→16:29)
[2019-12-08] MEDS ORDERED: IOVERSOL 320 50 ML VIAL ONE (14:45)
[2019-12-08 14:49] LABS: BASOPHILS # (AUTO) 0.1 10^3/uL (0.0-0.1); BASOPHILS % (AUTO) 0.8 %; EOSINOPHILS # (AUTO) 0.1 10^3/uL (0.0-0.7); EOSINOPHILS % (AUTO) 1.1 %; HGB - HEMOGLOBIN 12.6 g/dL (12.0-16.0); LYMPHOCYTES # (AUTO) 2.3 10^3/uL (1.5-3.5); LYMPHOCYTES % (AUTO) 19.8 %; MEAN CORPUSCULAR HEMOGLOBIN 32.1 pg (27.0-31.0); MEAN CORPUSCULAR HGB CONC 33.2 g/dL (32.0-36.0); MEAN CORPUSCULAR VOLUME 96.9 fL (81.0-99.0); MEAN PLATELET VOLUME 9.4 fL (7.9-10.8); MONOCYTES # (AUTO) 0.9 10^3/uL (0.0-1.0); MONOCYTES % (AUTO) 7.7 %; NEUTROPHILS % (AUTO) 70.1 %; PLT - PLATELET COUNT 219 10^3/uL (130-450); RED BLOOD COUNT 3.92 10^6/uL (4.20-5.40); RED CELL DISTRIBUTION WIDTH 13.6 % (12.0-15.0); WHITE BLOOD COUNT 11.4 x10^3/uL (4.8-10.8)
[2019-12-08 15:04] LABS: ALBUMIN 3.9 g/dL (3.2-5.5); ALBUMIN/GLOBULIN RATIO 2.1 (1.0-2.2); BILIRUBIN,TOTAL 0.7 mg/dL (0.2-1.0); CALCIUM 9.2 mg/dL (8.5-10.3); CREATININE 1.3 mg/dL (0.4-1.0); TOTAL PROTEIN 5.8 g/dL (6.7-8.2)
[2019-12-08] MEDS ORDERED: IOVERSOL 320 50 ML VIAL PO ONE (16:29)
--- NOTE | 2019-12-08 16:35 | CT Report ---
Reason: ABD PAIN LLQ Procedure Date: 12/08/2019 Accession Number: [id number] / [id number] Procedure: CT - Abdomen/Pelvis W CPT Code: Final Report FULL RESULT: EXAM: CT ABDOMEN AND PELVIS EXAM DATE: 12/08/2019 04:11 PM. CLINICAL HISTORY: ABD PAIN LLQ. COMPARISONS: None. TECHNIQUE: Routine helical CT imaging was performed through the abdomen and pelvis. IV contrast: OPTI 320 100ML. Enteric contrast: No. Reconstructions: Coronal and sagittal. In accordance with CT protocol optimization, one or more of the following dose reduction techniques were utilized for this exam: automated exposure control, adjustment of mA and/or KV based on patient size, or use of iterative reconstructive technique. FINDINGS: Lung Bases: Bilateral dependent atelectasis noted. Liver: Normal. No masses. Gallbladder/Bile Ducts: Unremarkable. Spleen: Normal. Pancreas: Normal. Adrenal Glands: Normal. Kidneys: Normal. No masses or hydronephrosis. Peritoneal Cavity/Bowel: No free fluid, free air or adenopathy. Diffuse colonic diverticulosis noted. There is pascale-colonic patterning surrounding mid descending colon (image 42 on series 3). Findings are concerning for acute diverticulitis. Appendix not seen in right lower quadrant, however there is no inflammation. Pelvic Organs: Normal. The bladder and visualized pelvic organs are within normal limits. Vasculature: No aneurysms or other significant abnormality. Bones: No significant abnormality. Other: None. IMPRESSION: Diffuse colonic diverticulosis with suggestion of mild pericolonic fat stranding surrounding mid descending colon, concerning for acute diverticulitis. No focal collection or microperforation. RADIA The call report notification system was initiated by Dr. Milka Nelson at 04:35 PM on 12/08/2019.
== END 2019-12-08 14:25 | disposition home or self-care (01) ==
LOC: LAB 14:24 → DI 14:25
PROVIDERS: ATTEND Physician Assistant Medical
DX: R10.32 Left lower quadrant pain (principal); K57.30 Diverticulosis of large intestine without perforation or abscess without bleeding
CPT/HCPCS: 36415; 74177; 80053; 83690; 85025; Q9967

== ENCOUNTER 2020-03-16 08:00 | Outpatient (CLI) | payer MEDICARE, OTHER | END 2020-03-16 23:59 | disposition home or self-care (01) | LOC: LAB.WCP 08:00 | PROVIDERS: ATTEND Family Medicine | DX: Z20.828 Contact with and (suspected) exposure to other viral communicable diseases (principal); R05 Cough | CPT/HCPCS: 81599 ==

== ENCOUNTER 2020-04-29 16:08 | Outpatient (CLI) | payer MEDICARE, OTHER ==
--- NOTE | 2020-04-29 18:50 | Ultrasound Report ---
PROCEDURE: Carotid Doppler Complete INDICATIONS: DIZZINESS TECHNIQUE: Color and pulse Doppler interrogation was performed of both carotid systems, with image documentation and velocity measurements. COMPARISON: None FINDINGS: Right side: Common carotid artery peak systolic velocity: 60 cm/sec. Internal carotid artery peak systolic velocity: 63 cm/sec. Internal carotid artery end diastolic velocity: 20 cm/sec. External carotid artery peak systolic velocity: 67 cm/sec. ICA/CCA peak systolic ratio: 1.0 . Angelo scale imaging description: Mild plaque at the bifurcation. Percent internal carotid artery stenosis: Less than 50% . Vertebral artery: Flow direction is antegrade. Left side: Common carotid artery peak systolic velocity: 76 cm/sec. Internal carotid artery peak systolic velocity: 102 cm/sec. Internal carotid artery end diastolic velocity: 31 cm/sec. External carotid artery peak systolic velocity: 106 cm/sec. ICA/CCA peak systolic ratio: 1.6 . Angelo scale imaging description: Mild plaque at the bifurcation. Percent internal carotid artery stenosis: Less than 50% . Vertebral artery: Flow direction is antegrade. IMPRESSION: Less than 50% stenosis of the internal carotid arteries bilaterally. The estimate of stenosis included in the report of the imaging study was calculated using the NASCET method Reviewed by: Claribel Hess MD on 04/29/2020 6:48 PM PDT Approved by: Claribel Hess MD on 04/29/2020 6:48 PM PDT Station ID: [id number]
== END 2020-04-29 16:09 | disposition home or self-care (01) ==
LOC: DI 16:08
PROVIDERS: ATTEND Physician Assistant Medical
DX: R42 Dizziness and giddiness (principal)
CPT/HCPCS: 93880

== ENCOUNTER 2020-05-30 11:15 | Outpatient (CLI) | payer MEDICARE, OTHER ==
[2020-05-30 19:20] LABS: FERRITIN 134.3 ng/mL (11.0-306.8)
== END 2020-05-30 23:59 | disposition home or self-care (01) ==
LOC: LAB.WCP 11:15
PROVIDERS: ATTEND Physician Assistant Medical
DX: R53.83 Other fatigue (principal)
CPT/HCPCS: 36415; 80048; 82306; 82607; 82728

== ENCOUNTER 2020-06-13 13:02 | Outpatient (CLI) | payer MEDICARE, OTHER ==
--- NOTE | 2020-06-13 16:53 | Ultrasound Report ---
PROCEDURE: Head or Neck Soft Tissue INDICATIONS: HOARSENESS, CHRONIC, HEADACHE TECHNIQUE: Real-time scanning was performed of the thyroid gland, with image documentation. COMPARISON: None FINDINGS: Right: Thyroid lobe measures 3.5 x 1.4 x 0.8 cm, and is homogeneous in echotexture. Left: Thyroid lobe measures 3.4 x 1.4 x 1.4 cm, and is homogenous in echotexture. Isthmus: 2 mm thick. Nodule number: One Location: Right superior Size: 0.8 x 0 0.5-0.4 cm. Composition: Solid Echogenicity: Hypoechoic Shape: wider than tall. Margins: Lobulated Echogenic foci: None Total points: 4 ACR TI-RADS category: 4 Nodule number: Two Location: Right superior medial Size: 0.6 x 0.5 x 0.3 cm. Composition: Cystic Echogenicity: Anechoic Shape: wider than tall. Margins: Smooth Echogenic foci: None Total points: 0 ACR TI-RADS category: 1 Nodule number: Three Location: Left lateral Size: 1.0 x 0.8 x 0.7 cm. Composition: Solid Echogenicity: Hypoechoic Shape: wider than tall. Margins: Lobulated Echogenic foci: None Total points: 4 ACR TI-RADS category: 4 IMPRESSION: 1. Lesions 1 and 3 are category 4. Secondary to size, recommend interval imaging follow-up at 1, 2, 3 and 5 years as below. 2. Lesion is category 1 and no additional follow-up is recommended. ACR TI-RADS definitions and recommendations: TI-RADS 1 (benign): 0 points. FNA not needed. TI-RADS 2 (not suspicious): 2 points. FNA not needed. TI-RADS 3 (mildly suspicious): 3 points. ? FNA if 2.5 cm or larger, follow up if 1.5 cm or larger (at 1, 3, and 5 years). TI-RADS 4 (moderately suspicious): 4-6 points. ? FNA if 1.5 cm or larger, follow up if 1 cm or larger (at 1, 2, 3, and 5 years). TI-RADS 5 (highly suspicious): 7 points or more. ? FNA if 1 cm or larger, follow up if 0.5 cm or larger (every year for 5 years). Reviewed by: Claribel Hess MD on 06/13/2020 4:52 PM PDT Approved by: Claribel Hess MD on 06/13/2020 4:52 PM PDT Station ID: [id number]
== END 2020-06-13 13:03 | disposition home or self-care (01) ==
LOC: DI 13:02
PROVIDERS: ATTEND Physician Assistant Medical
DX: E04.2 Nontoxic multinodular goiter (principal)
CPT/HCPCS: 76536

== ENCOUNTER 2020-07-13 16:21 | Emergency (ER) | payer MEDICARE, OTHER ==
--- NOTE | 2020-07-13 17:59 | Ultrasound Report ---
PROCEDURE: Duplex Ext Veins Right INDICATIONS: calf tenderness TECHNIQUE: Real-time imaging, as well as color and pulse Doppler interrogation, were performed of the lower extr emity deep veins from the inguinal ligament to the popliteal fossa. COMPARISON: None. FINDINGS: The deep veins are normally compressible, and free of intraluminal thrombus. Color and pu lse Doppler demonstrate normal phasic intraluminal flow. There is normal augmentation response to di stal compression maneuver. Large complex fluid collection noted in posterior knee extending into the medial calf which may repre sent large popliteal cyst, however other etiologies cannot be excluded by imaging alone. IMPRESSION: No evidence of the vein thrombosis involving the left lower extremity. Reviewed by: Olamide Shane MD, PhD on 07/13/2020 5:57 PM PDT Approved by: Olamide Shane MD, PhD on 07/13/2020 5:57 PM PDT Station ID: [id number]
[2020-07-13 18:32] LABS: BASOPHILS # (AUTO) 0.1 10^3/uL (0.0-0.1); BASOPHILS % (AUTO) 0.8 %; EOSINOPHILS % (AUTO) 0.2 %; LYMPHOCYTES # (AUTO) 2.4 10^3/uL (1.5-3.5); LYMPHOCYTES % (AUTO) 27.2 %; MEAN CORPUSCULAR HEMOGLOBIN 31.9 pg (27.0-31.0); MEAN CORPUSCULAR HGB CONC 32.9 g/dL (32.0-36.0); MEAN CORPUSCULAR VOLUME 96.8 fL (81.0-99.0); MEAN PLATELET VOLUME 9.2 fL (7.9-10.8); MONOCYTES # (AUTO) 0.6 10^3/uL (0.0-1.0); NEUTROPHILS # (AUTO) 5.6 10^3/uL (1.5-6.6); NEUTROPHILS % (AUTO) 64.5 %; PLT - PLATELET COUNT 306 10^3/uL (130-450); RED BLOOD COUNT 4.08 10^6/uL (4.20-5.40); RED CELL DISTRIBUTION WIDTH 14.1 % (12.0-15.0); WHITE BLOOD COUNT 8.7 x10^3/uL (4.8-10.8)
[2020-07-13 18:38] LABS: INR 1.1 (0.8-1.2); PT - PROTHROMBIN TIME 12.2 secs (9.9-12.6)
[2020-07-13 18:42] LABS: CALCIUM 9.2 mg/dL (8.5-10.3); CREATININE 1.1 mg/dL (0.4-1.0)
[2020-07-13 18:45] LABS: PARTIAL THROMBOPLASTIN TIME 31.7 secs (24.9-33.3)
--- NOTE | 2020-07-13 19:28 | ED Physician Documentation ---
History of Present Illness - Stated complaint Stated Complaint: RT LEG PX - Chief complaint Chief Complaint: Ext Problem - History obtained from History obtained from: Patient - History of Present Illness Timing: How many days ago (several) Pain level max: 6 Pain level now: 4 - Additonal information Additional information: 80 year old female with R leg pain and swelling. history of bakers cyst. nothing makes it better or worse. no redness. 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 Acidophilus/L. Rhamnosus 1 each PO DAILY 08/07/17 09/28/19 [Probiotic 15 Billion Cell Cap] Leflunomide 20 mg PO DAILY 08/07/17 09/28/19 Magnesium 400 mg PO DAILY 08/07/17 09/28/19 Multivit with Calcium,Iron,Min 1 tab PO DAILY 08/07/17 09/28/19 [Multiple Vitamins For Women] Vitamin E 100 unit PO DAILY 08/07/17 09/28/19 Furosemide [Lasix] 20 mg PO DAILY #15 tablet 07/09/18 09/28/19 Levothyroxine Sodium [Synthroid] 50 mcg PO QDAC 07/09/18 09/28/19 Lidocaine HCl/Menthol [Icy Hot 1 applic TOP DAILY PRN 07/09/18 09/28/19 4%-1% Cream] Potassium Chloride 10 meq PO DAILY #15 tab.er.prt 07/09/18 09/28/19 Prednisone 5 mg PO DAILY 07/09/18 09/28/19 Spironolactone 1 tab PO DAILY 09/17/18 09/28/19 carvediloL [Carvedilol] 1.5 tab PO BID 12/10/18 09/28/19 Losartan [Cozaar] 75 mg PO BID 04/01/19 09/28/19 - Allergies Allergies/Adverse Reactions: Allergies Allergy/AdvReac Type Severity Reaction Status Date / Time hydrocodone AdvReac Dizziness Verified 07/13/20 16:26 - Social History Does the pt smoke?: No Smoking Status: Never smoker Does the pt drink ETOH?: No Does the pt have substance abuse?: No - Immunizations Immunizations are current?: Yes - POLST Patient has POLST: Yes PD ED PE NORMAL - Vitals Vital signs reviewed: Yes - General General: Alert and oriented X 3, No acute distress - HEENT HEENT: Moist mucous membranes - Neck Neck: Supple, no meningeal sign - Cardiac Cardiac: RRR - Respiratory Respiratory: No respiratory distress, Clear bilaterally - Derm Derm: Warm and dry - Extremities Extremities: Other (No edema to the right calf. Mild swelling. No erythema. No tenderness.) - Neuro Neuro: Alert and oriented X 3 - Psych Psych: Normal mood, Normal affect Results - Vitals Vitals: Oxygen O2 Source Room air - Labs Labs: Laboratory Tests 07/13/20 07/13/20 07/13/20 18:30 18:30 18:30 WBC 8.7 RBC 4.08 L Hgb 13.0 Hct 39.5 MCV 96.8 MCH 31.9 H MCHC 32.9 RDW 14.1 Plt Count 306 MPV 9.2 Neut # (Auto) 5.6 Lymph # (Auto) 2.4 [place] # (Auto) 0.6 Eos # (Auto) 0.0 Baso # (Auto) 0.1 Absolute Nucleated RBC 0.00 Nucleated RBC % 0.0 PT 12.2 INR 1.1 APTT 31.7 Sodium 135 Potassium 4.8 Chloride 100 L Carbon Dioxide 26 Anion Gap 9.0 BUN 29 H Creatinine 1.1 H Estimated GFR (MDRD) 48 L Glucose 121 H Calcium 9.2 - Rads (name of study) r duplex US Radiology: Prelim report reviewed, EMP read contemporaneously, See rad report (bakers cyst. no DVT.) PD MEDICAL DECISION MAKING - ED course Complexity details: reviewed results, re-evaluated patient, considered differential, d/w patient ED course: No DVT. Patient with a known Akins's cyst. Has an appointment with her orthopedist on Thursday. Patient counseled regarding signs and symptoms for which I believe and urgent re-evaluation would be necessary. Patient with good understanding of and agreement to plan and is comfortable going home at this time This document was made in part using voice recognition software. While efforts are made to proofread this document, sound alike and grammatical errors may occur. Departure - Departure Disposition: Home, Self Care Clinical Impression: Akins's cyst Qualifiers: Laterality: right Qualified Code(s): M71.21 - Synovial cyst of popliteal space [Akins], right knee Condition: Good Instructions: ED Cyst Akins Follow-Up: Anabella Perry MD [Physician No Access] - Within 1 week Comments: You have a large Akins's cyst on ultrasound today. Follow-up with your orthopedist for further care. Return if you worsen Discharge Date/Time: 07/13/20 19:37
[2020-07-13 19:37] VITALS: BP 155/78
== END 2020-07-13 19:37 | disposition home or self-care (01) ==
LOC: ED 16:21
DX: M71.21 Synovial cyst of popliteal space [Baker], right knee (principal)
CPT/HCPCS: 36415; 80048; 80053; 83690; 85025; 85610; 85730; 99282; 99284

== ENCOUNTER 2020-09-06 16:36 | Outpatient (CLI) | payer MEDICARE, OTHER | END 2020-09-06 16:37 | disposition home or self-care (01) | LOC: RT 16:36 | PROVIDERS: ATTEND Orthopaedic Surgery | DX: Z01.818 Encounter for other preprocedural examination (principal) | CPT/HCPCS: 93005 ==

== ENCOUNTER 2020-09-07 09:54 | Outpatient (CLI) | payer MEDICARE, OTHER ==
[2020-09-07 10:08] LABS: BASOPHILS # (AUTO) 0.1 10^3/uL (0.0-0.1); BASOPHILS % (AUTO) 1.3 %; EOSINOPHILS # (AUTO) 0.2 10^3/uL (0.0-0.7); EOSINOPHILS % (AUTO) 2.5 %; HGB - HEMOGLOBIN 12.2 g/dL (12.0-16.0); LYMPHOCYTES # (AUTO) 2.3 10^3/uL (1.5-3.5); LYMPHOCYTES % (AUTO) 27.3 %; MEAN CORPUSCULAR HEMOGLOBIN 31.1 pg (27.0-31.0); MEAN CORPUSCULAR HGB CONC 32.4 g/dL (32.0-36.0); MEAN CORPUSCULAR VOLUME 96.2 fL (81.0-99.0); MEAN PLATELET VOLUME 8.9 fL (7.9-10.8); MONOCYTES # (AUTO) 0.9 10^3/uL (0.0-1.0); MONOCYTES % (AUTO) 10.5 %; NEUTROPHILS # (AUTO) 4.8 10^3/uL (1.5-6.6); NEUTROPHILS % (AUTO) 57.8 %; PLT - PLATELET COUNT 312 10^3/uL (130-450); RED BLOOD COUNT 3.92 10^6/uL (4.20-5.40); RED CELL DISTRIBUTION WIDTH 14.2 % (12.0-15.0); WHITE BLOOD COUNT 8.3 x10^3/uL (4.8-10.8)
[2020-09-07 10:20] LABS: CALCIUM 8.9 mg/dL (8.5-10.3)
== END 2020-09-07 09:55 | disposition home or self-care (01) ==
LOC: LAB 09:54
PROVIDERS: ATTEND Orthopaedic Surgery
DX: Z01.812 Encounter for preprocedural laboratory examination (principal); Z01.818 Encounter for other preprocedural examination
CPT/HCPCS: 36415; 80048; 85025

== ENCOUNTER 2020-10-20 09:18 | Emergency (ER) | payer MEDICARE, OTHER ==
[2020-10-20] MEDS ORDERED: FAMOTIDINE 20 MG/2 ML VIAL IVP STA (09:45)
[2020-10-20] MEDS ORDERED: ONDANSETRON 4 MG/2 ML VIAL IVP STA (09:45)
[2020-10-20] MEDS ORDERED: SODIUM CHLORIDE 0.9% 1,000 ML IV STA (09:45)
--- NOTE | 2020-10-20 09:46 | ED Physician Documentation ---
PD HPI NVD - Stated complaint Stated Complaint: NOT EATING - Chief complaint Chief Complaint: General - History obtained from History obtained from: Patient - History of Present Illness Timing - onset: How many weeks ago (1-2 weeks of less appetite, nausea without vomiting, occasional mid to left lower abd cramps, and daily soft/loose brown stool. Feeling general weakness due to less appetite.) Timing - duration: Weeks (1-2) Timing - details: Gradual onset, Waxing and waning Associated symptoms: Abdominal pain (fullness and easy satiety with nausea upon eating.), Loss of appetite. No: Fever, Chest pain, Melena, Near syncope / syncope, Dysuria Contributing factors: No: Sick contact, Bad food, Recent antibiotics Improved by: No: Eating Worsened by: Eating Similar symptoms before: Has not had sx before Recently seen: Surgery (right shoulder partial replacement early Dec without problems.), Other (had had meals on wheels for the first 3 weeks after surgery, but they stopped with meals last week at patient direction. She is making her own foods now.) Review of Systems Constitutional: denies: Fever, Chills Nose: denies: Rhinorrhea / runny nose, Congestion Throat: denies: Sore throat Cardiac: denies: Chest pain / pressure, Palpitations Respiratory: denies: Dyspnea, Cough GI: reports: Nausea. 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 SUPPORT SPECIALIST: Breast cancer Psych: None Musculoskeletal: Osteoarthritis, Rheumatoid arthritis, Osteoporosis, Chronic back pain - Past Surgical History Past Surgical History: Yes General: Appendectomy Ortho: Arthroscopic surgery /LAN SUPPORT SPECIALIST: Mastectomy HEENT: Tonsil/Adenoidectomy - Present Medications Home Medications: Ambulatory Orders Medication Instructions Recorded Confirmed Chlordiazepoxide/Clidinium Br 1 each PO BID PRN 11/18/13 10/20/20 [Chlordiazepoxide-Clidinium Cap] Ascorbic Acid [Vitamin C] 1,000 mg PO DAILY 08/07/17 10/20/20 Cholecalciferol (Vitamin D3) 2,000 unit PO DAILY 08/07/17 10/20/20 [Vitamin D3] Flaxseed Oil 1,000 mg PO DAILY 08/07/17 10/20/20 Krill/[place]-3/Dha/Epa/Lipids 1 cap PO DAILY 08/07/17 10/20/20 [Krill Oil 350 mg Softgel] L. Acidophilus/L. Rhamnosus 1 each PO DAILY 08/07/17 10/20/20 [Probiotic 15 Billion Cell Cap] Leflunomide 20 mg PO DAILY 08/07/17 10/20/20 Magnesium 400 mg PO DAILY 08/07/17 10/20/20 Multivit with Calcium,Iron,Min 1 tab PO DAILY 08/07/17 10/20/20 [Multiple Vitamins For Women] Vitamin E 100 unit PO DAILY 08/07/17 10/20/20 Furosemide [Lasix] 20 mg PO DAILY #15 tablet 07/09/18 10/20/20 Levothyroxine Sodium [Synthroid] 50 mcg PO QDAC 07/09/18 10/20/20 Potassium Chloride 10 meq PO DAILY #15 tab.er.prt 07/09/18 10/20/20 Prednisone 5 mg PO DAILY 07/09/18 10/20/20 Spironolactone 1 tab PO DAILY 09/17/18 10/20/20 carvediloL [Carvedilol] 1.5 tab PO BID 12/10/18 10/20/20 Losartan [Cozaar] 75 mg PO BID 04/01/19 10/20/20 Famotidine [Pepcid] 20 mg PO DAILY #20 tablet 10/20/20 Ondansetron Odt [Zofran] 4 mg TL Q6H PRN #10 tablet 10/20/20 - Allergies Allergies/Adverse Reactions: Allergies Allergy/AdvReac Type Severity Reaction Status Date / Time hydrocodone AdvReac Dizziness Verified 10/20/20 09:21 - Social History Does the pt smoke?: No Smoking Status: Never smoker Does the pt drink ETOH?: No Does the pt have substance abuse?: No - Immunizations Immunizations are current?: Yes - POLST Patient has POLST: Yes PD ED PE NORMAL - Vitals Vital signs reviewed: Yes - General General: Alert and oriented X 3, No acute distress, Well developed/nourished - HEENT HEENT: Moist mucous membranes, Pharynx benign - Neck Neck: Supple, no meningeal sign, No adenopathy - Cardiac Cardiac: RRR, No murmur - Respiratory Respiratory: Clear bilaterally - Abdomen Abdomen: Normal bowel sounds, Soft, Non distended, No organomegaly, Other (some tenderness in mid abd and epigastric area without guarding nor percussion tenderness. ) - Female Female : Deferred - Rectal Rectal: Deferred - Back Back: No CVA TTP - Derm Derm: Normal color, Warm and dry - Extremities Extremities: Other (right shoulder with healing surgical wound without signs of infection. ) - Neuro Neuro: Alert and oriented X 3, No motor deficit, Normal speech Results - Vitals Vitals: Vital Signs - 24 hr 10/20/20 10/20/20 10/20/20 09:21 09:28 11:28 Temperature 37.3 C 38.0 C H 36.2 C L Heart Rate 85 76 73 Respiratory 18 23 20 Rate Blood Pressure 120/102 H 122/85 H 154/80 H O2 Saturation 97 97 98 10/20/20 12:46 Temperature 36.5 C Heart Rate 77 Respiratory 16 Rate Blood Pressure 148/80 H O2 Saturation 99 Oxygen O2 Source Room air - Labs Labs: Laboratory Tests 10/20/20 10/20/20 10/20/20 09:55 09:55 11:41 WBC 9.4 RBC 3.78 L Hgb 11.3 L Hct 35.1 L MCV 92.9 MCH 29.9 MCHC 32.2 RDW 14.4 Plt Count 405 MPV 8.6 Neut # (Auto) 6.1 Lymph # (Auto) 2.1 [place] # (Auto) 0.9 Eos # (Auto) 0.3 Baso # (Auto) 0.1 Absolute Nucleated RBC 0.00 Nucleated RBC % 0.0 Sodium 133 L Potassium 4.3 Chloride 99 L Carbon Dioxide 22 Anion Gap 12.0 BUN 20 Creatinine 1.0 Estimated GFR (MDRD) 53 L Glucose 103 H Calcium 9.2 Magnesium 2.0 Total Bilirubin 0.6 AST 15 ALT 11 Alkaline Phosphatase 83 Total Protein 6.8 Albumin 3.4 Globulin 3.4 Albumin/Globulin Ratio 1.0 Lipase 43 Urine Color YELLOW Urine Clarity CLEAR Urine pH 7.5 Ur Specific [place] <=1.005 Urine Protein NEGATIVE Urine Glucose (UA) NEGATIVE Urine Ketones NEGATIVE Urine Occult Blood NEGATIVE Urine Nitrite NEGATIVE Urine Bilirubin NEGATIVE Urine Urobilinogen 0.2 (NORMAL) Ur Leukocyte Esterase NEGATIVE Ur Microscopic Review NOT INDICATED Urine Culture Comments NOT INDICATED - Rads (name of study) abd CT Radiology: Prelim report reviewed (no acute abnormality seen), See rad report PD MEDICAL DECISION MAKING - ED course Complexity details: reviewed results, considered differential (could be gastritis due to changed food diet (Meals on Wheels to her own) or from prednisone daily for her arthritis. Can get CT to ensure no diverticulitis or other such. ), d/w patient Departure - Departure Disposition: 01 Home, Self Care Clinical Impression: Decreased appetite, Abdominal discomfort Condition: Stable Record reviewed to determine appropriate education?: Yes Follow-Up: Meron Mcdaniel PA-C [Primary Care Provider] - Prescriptions: Famotidine [Pepcid] 20 mg PO DAILY #20 tablet Ondansetron Odt [Zofran] 4 mg TL Q6H PRN #10 tablet PRN Reason: Nausea / Vomiting Comments: Tests and urine and CT scan of the abdomen do not show any obvious acute process. It sounds likely your symptoms are related to an irritation of the stomach or intestines. We can try an acid reducing medicine famotidine daily for 2 to 3 weeks. Add ondansetron every 6-8 hours if needed for nausea. Otherwise continue usual current medications. Recheck if not improved over the next several days with improved appetite and less discomfort. Discharge Date/Time: 10/20/20 12:45
[2020-10-20] MEDS ORDERED: IOVERSOL 320 100 ML VIAL IVP ONE ×2 (10:03→10:47)
[2020-10-20 10:06] LABS: BASOPHILS # (AUTO) 0.1 10^3/uL (0.0-0.1); BASOPHILS % (AUTO) 1.1 %; EOSINOPHILS # (AUTO) 0.3 10^3/uL (0.0-0.7); EOSINOPHILS % (AUTO) 2.7 %; HGB - HEMOGLOBIN 11.3 g/dL (12.0-16.0); LYMPHOCYTES # (AUTO) 2.1 10^3/uL (1.5-3.5); LYMPHOCYTES % (AUTO) 22.3 %; MEAN CORPUSCULAR HEMOGLOBIN 29.9 pg (27.0-31.0); MEAN CORPUSCULAR HGB CONC 32.2 g/dL (32.0-36.0); MEAN CORPUSCULAR VOLUME 92.9 fL (81.0-99.0); MEAN PLATELET VOLUME 8.6 fL (7.9-10.8); MONOCYTES # (AUTO) 0.9 10^3/uL (0.0-1.0); MONOCYTES % (AUTO) 9.2 %; NEUTROPHILS # (AUTO) 6.1 10^3/uL (1.5-6.6); NEUTROPHILS % (AUTO) 64.4 %; PLT - PLATELET COUNT 405 10^3/uL (130-450); RED BLOOD COUNT 3.78 10^6/uL (4.20-5.40); RED CELL DISTRIBUTION WIDTH 14.4 % (12.0-15.0); WHITE BLOOD COUNT 9.4 x10^3/uL (4.8-10.8)
[2020-10-20 10:21] LABS: ALBUMIN 3.4 g/dL (3.2-5.5); BILIRUBIN,TOTAL 0.6 mg/dL (0.2-1.0); CALCIUM 9.2 mg/dL (8.5-10.3); TOTAL PROTEIN 6.8 g/dL (6.7-8.2)
--- NOTE | 2020-10-20 10:58 | CT Report ---
PROCEDURE: Abdomen/Pelvis W INDICATIONS: RLQ Abdominal pain, appendicitis suspected CONTRAST: IV CONTRAST: Optiray 320 ml: 100 PO CONTRAST: *NO PO CONTRAST TECHNIQUE: After the administration of nonionic IV contrast, 5 mm thick sections acquired from the diaphragms to the symphysis. 5 mm thick coronal and sagittal reformats were acquired. For radiation dose reducti on, the following was used: automated exposure control, adjustment of mA and/or kV according to eladio ent size. COMPARISON: 12/08/2019, 05/13/2017 FINDINGS: Image quality: There is artifact associated with the metallic hardware. ABDOMEN: Lung bases: Lung bases are clear. Heart size is normal. A left mammaplasty implants partially seen . Solid organs: Liver and spleen are normal in size and enhancement. An accessory splenule is incide ntally noted along the hilum of the primary spleen. Gallbladder wall does not appear thickened. Biliary system is non dilated. Pancreas enhances normally. No adrenal nodules. Kidneys demonstrate normal size and enhancement, without hydronephrosis. Peritoneum and bowel: Bowel loops demonstrate normal wall thickness and caliber. No free fluid or a ir. Diverticulosis can be seen, without clay findings of active diverticulitis. Nodes and vessels: No retroperitoneal or mesenteric adenopathy by size criteria. Aorta and inferior vena cava are normal in size. Atherosclerotic calcification is seen. Miscellaneous: No ventral hernias. PELVIS: Genitourinary: Bladder wall thickness is normal. Miscellaneous: No inguinal hernias or adenopathy. Bones: No suspicious bony lesions. Right hip arthroplasty hardware is seen, with associated streak artifact. S-shaped sclerotic curvature can be seen. No vertebral body compression fractures. Relative ly prominent degenerative changes are seen. Grade 1 L5 on S1 anterolisthesis is seen, with associate d bilateral L5 pars defects IMPRESSION: No acute abnormality can be seen. No masses or clay findings of metastatic disease can be seen. Extensive bony degenerative changes are seen. Incidental note is made of: Mammaplasty implant Accessory splenule Sigmoid diverticulosis, without clay active diverticulitis S-shaped scoliotic curvature L5 pars defects, with associated grade 1 L5-S1 anterolisthesis Right hip arthroplasty hardware Reviewed by: Dallin Srinivasan MD on 10/20/2020 9:56 AM AKST Approved by: Dallin Srinivasan MD on 10/20/2020 9:56 AM AK Station ID: [id number]
[2020-10-20 11:49] LABS: BILIRUBIN,URINE NEGATIVE (NEGATIVE); GLUCOSE, URINE (UA) NEGATIVE (NEGATIVE); KETONES,URINE (UA) NEGATIVE (NEGATIVE); LEUKOCYTE ESTERASE, URINE NEGATIVE (NEGATIVE); NITRITE,URINE NEGATIVE (NEGATIVE); OCCULT BLOOD,URINE NEGATIVE (NEGATIVE); PH,URINE 7.5 PH (5.0-7.5); PROTEIN,URINE NEGATIVE (NEGATIVE); UROBILINOGEN,URINE 0.2 (NORMAL) E.U./dL (NORMAL)
[2020-10-20 11:50] LABS: CLARITY,URINE CLEAR (CLEAR)
[2020-10-20 12:48] VITALS: BP 148/80
== END 2020-10-20 12:45 | disposition home or self-care (01) ==
LOC: ED 09:18
DX: R10.9 Unspecified abdominal pain (principal); R63.0 Anorexia
CPT/HCPCS: 36415; 74177; 80053; 81003; 83690; 83735; 85025; 96361; 96374; 99284; Q9967; 81001; 87086

== ENCOUNTER 2020-10-29 12:07 | Outpatient (CLI) | payer MEDICARE, OTHER ==
[2020-10-29 12:26] LABS: BASOPHILS # (AUTO) 0.1 10^3/uL (0.0-0.1); BASOPHILS % (AUTO) 0.9 %; EOSINOPHILS # (AUTO) 0.2 10^3/uL (0.0-0.7); EOSINOPHILS % (AUTO) 1.4 %; HGB - HEMOGLOBIN 11.9 g/dL (12.0-16.0); LYMPHOCYTES # (AUTO) 2.4 10^3/uL (1.5-3.5); LYMPHOCYTES % (AUTO) 23.5 %; MEAN CORPUSCULAR HEMOGLOBIN 30.4 pg (27.0-31.0); MEAN CORPUSCULAR HGB CONC 32.8 g/dL (32.0-36.0); MEAN CORPUSCULAR VOLUME 92.6 fL (81.0-99.0); MEAN PLATELET VOLUME 8.5 fL (7.9-10.8); MONOCYTES # (AUTO) 0.7 10^3/uL (0.0-1.0); MONOCYTES % (AUTO) 6.8 %; NEUTROPHILS # (AUTO) 6.9 10^3/uL (1.5-6.6); NEUTROPHILS % (AUTO) 66.6 %; PLT - PLATELET COUNT 419 10^3/uL (130-450); RED BLOOD COUNT 3.92 10^6/uL (4.20-5.40); RED CELL DISTRIBUTION WIDTH 14.3 % (12.0-15.0); WHITE BLOOD COUNT 10.4 x10^3/uL (4.8-10.8)
[2020-10-29 12:40] LABS: ALBUMIN 3.7 g/dL (3.2-5.5); ALBUMIN/GLOBULIN RATIO 1.2 (1.0-2.2); BILIRUBIN,TOTAL 0.7 mg/dL (0.2-1.0); CALCIUM 9.5 mg/dL (8.5-10.3); TOTAL PROTEIN 6.9 g/dL (6.7-8.2)
== END 2020-10-29 12:08 | disposition home or self-care (01) ==
LOC: LAB 12:07
PROVIDERS: ATTEND Orthopaedic Surgery
DX: M19.011 Primary osteoarthritis, right shoulder (principal); Z96.619 Presence of unspecified artificial shoulder joint
CPT/HCPCS: 36415; 80053; 85025

== ENCOUNTER 2020-11-16 14:10 | Outpatient (CLI) | payer MEDICARE, OTHER ==
[2020-11-16] MEDS ORDERED: IOVERSOL 320 100 ML VIAL IVP ONE ×2 (14:27→14:49)
[2020-11-16] MEDS ORDERED: GADOBUTROL 7.5 MMOL/7.5 ML VIAL ONE (15:45)
[2020-11-16] MEDS ORDERED: GADOBUTROL 7.5 MMOL/7.5 ML VIAL IVP ONE (15:50)
--- NOTE | 2020-11-16 16:36 | MRI Report ---
PROCEDURE: Brain W/WO INDICATIONS: VERTIGO, HEADACHE CONTRAST: IV CONTRAST: Gadavist ml: 5 TECHNIQUE: Noncontrast axial T1 spin echo, axial T2 fast spin echo, sagittal and axial FLAIR, coronal T2 fast sp in echo, axial gradient echo, axial diffusion and ADC through the brain. After the administration of contrast, axial and coronal T1 spin echo with fat saturation through the brain. COMPARISON: CT head 04/27/2018 FINDINGS: Image quality: Excellent. The ventricular system and cortical sulci demonstrate atrophy, consistent for patient's stated age. There are areas of hyperintense T2/FLAIR signal in the periventricular and subcortical white matter. There is no acute intra or extra-axial fluid collection. No acute hemorrhage, mass lesion or midlin e shift. Brainstem is unremarkable. There are no areas of restricted diffusion. Globes are symmetr ical. Sinuses are aerated. Osseous structures are intact. IMPRESSION: 1. No acute intracranial process. 2. Mild atrophy and chronic microvascular ischemic changes. Reviewed by: Claribel Hess MD on 11/16/2020 4:34 PM PST Approved by: Claribel Hess MD on 11/16/2020 4:34 PM PST Station ID: [id number]
--- NOTE | 2020-11-16 16:59 | CT Report ---
PROCEDURE: CHEST W INDICATIONS: DECREASE IN APPETITE, REACTIVE AIRWAY DISEASE CONTRAST: IV CONTRAST: Optiray 320 ml: 100 PO CONTRAST: *NO PO CONTRAST TECHNIQUE: After the administration of intravenous contrast, 5 mm thick sections acquired from the pulmonary api pepper to the posterior costophrenic angles. 7 mm thick coronal MIP reformats were acquired. For radia tion dose reduction, the following was used: automated exposure control, adjustment of mA and/or kV according to patient size. COMPARISON: Chest x-ray 10/26/2019, CT abdomen pelvis 10/20/2020 FINDINGS: Image quality: There is limited visualization of the right chest wall secondary to artifact from cathleen ulder arthroplasty. Lungs and pleura: No acute air space opacities. No pleural effusions or pneumothorax. Central and peripheral airways are patent and normal in caliber. Minimal emphysematous changes. Mediastinum: Heart size is enlarged. No pericardial effusion. No mediastinal or hilar adenopathy by size criteria. Thoracic aorta and central pulmonary arteries are normal in size. Esophagus is norm al in caliber. No hiatal hernia. Bones and chest wall: No suspicious bony lesions. No vertebral body compression fractures. No axil megan or supraclavicular adenopathy by size criteria. Thyroid gland demonstrates subcentimeter low-at tenuation foci bilaterally. Bilateral breast implants are noted. Abdomen: Visualized upper abdominal solid organs appear normal. Upper abdominal bowel loops are nor mal in caliber. IMPRESSION: 1. Minimal emphysematous changes. 2. Subcentimeter low-attenuation foci within the thyroid gland. These are overall nonspecific. Thyroi d ultrasound may be obtained for further evaluation as clinically indicated. Reviewed by: Claribel Hses MD on 11/16/2020 4:57 PM PST Approved by: Claribel Hess MD on 11/16/2020 4:57 PM PST Station ID: [id number]
--- NOTE | 2020-11-16 17:15 | Ultrasound Report ---
PROCEDURE: Pelvic w/Transvaginal INDICATIONS: ABDOMINAL DISCOMFORT TECHNIQUE: Real-time scanning was performed of the pelvic organs, with image documentation. Additional endovagi nal scanning was necessary due to incomplete visualization of the adnexal and endometrial structures by transabdominal scanning. COMPARISON: CT abdomen/pelvis 10/20/2020 FINDINGS: No pathologic free abdominal or pelvic fluid. Uterus: Uterus is normal in size at 4.9 x 2.2 x 4.4 cm. The endometrium measures 2 mm in combined t hickness. Coarse uterine echotexture is seen with multiple fibroids, some which are partially calcif ied. The largest fibroid is a right posterior intramural fibroid measuring 1.2 x 1 x 1.5 cm. Trace fl uid is seen within the endometrial canal. Focal echogenicity measuring 4 x 4 mm in the endometrial ca nal at the right fundus without definite internal blood flow may represent echogenic blood products o r a small endometrial polyp. Ovaries: The right and left ovaries are not visualized. Miscellaneous: A left posterior bladder ureterocele is incidentally noted measuring 1.9 x 1.5 x 1.4 c m. IMPRESSION: 1. Focal 4 mm lesion in the right fundal endometrial cavity without definite vascularity may represe nt echogenic blood products or an endometrial polyp. Saline infused sonogram may be obtained for furt her evaluation if indicated clinically. Trace free fluid is seen in the endometrial canal. 2. Calcified degenerated uterine fibroids without significant enlargement of the uterus. 3. Nonvisualization of the bilateral ovaries. 4. Left posterior bladder ureterocele is noted measuring up to 1.9 cm in maximum dimension. Reviewed by: Negro Cao MD on 11/16/2020 5:14 PM PST Approved by: Negro Cao MD on 11/16/2020 5:14 PM PST Station ID: [id number]
== END 2020-11-16 14:11 | disposition home or self-care (01) ==
LOC: DI 14:10
PROVIDERS: ATTEND Physician Assistant Medical
DX: Z01.812 Encounter for preprocedural laboratory examination (principal); Z20.822 Contact with and (suspected) exposure to COVID-19; R42 Dizziness and giddiness; R51.9 Headache, unspecified; R10.9 Unspecified abdominal pain; R63.0 Anorexia; D25.1 Intramural leiomyoma of uterus; N28.89 Other specified disorders of kidney and ureter; J43.9 Emphysema, unspecified
CPT/HCPCS: 70553; 71260; 76830; 76856; A9585; Q9967; U0004

== ENCOUNTER 2020-11-16 16:19 | Outpatient (CLI) | payer MEDICARE, OTHER | END 2020-11-16 16:20 | disposition home or self-care (01) | LOC: COV 16:19 | PROVIDERS: ATTEND Internal Medicine | DX: Z01.812 Encounter for preprocedural laboratory examination (principal); Z20.822 Contact with and (suspected) exposure to COVID-19 ==

== ENCOUNTER 2020-11-28 18:56 | Outpatient (CLI) | payer MEDICARE, OTHER ==
--- NOTE | 2020-11-29 10:52 | Ultrasound Report ---
PROCEDURE: Head or Neck Soft Tissue INDICATIONS: THYROID NODULE TECHNIQUE: Real-time scanning was performed of the thyroid gland, with image documentation. COMPARISON: Thyroid ultrasound FINDINGS: Right: Thyroid lobe measures 2.5 x 1.2 x 1.1 cm, and is homogeneous in echotexture. Left: Thyroid lobe measures 3.9 x 1.7 x 1.6 cm, and is homogenous in echotexture. Isthmus: 2 mm thick. Nodule number: One Location: Right superior Size: 0.6 x 0.4 x 0.5 cm compared to 0.8 x 0.5 x 0.4 cm. Composition: Solid Echogenicity: Hypoechoic Shape: wider than tall. Margins: Lobulated Echogenic foci: None Total points: 4 ACR TI-RADS category: 4 Nodule number: Two Location: Right superior medial Size: 0.5 x 0.3 x 0.6 cm compared to 0.6 x 0.5 x 0.3 cm. Composition: Cystic Echogenicity: Anechoic Shape: wider than tall. Margins: Smooth Echogenic foci: None Total points: 0 ACR TI-RADS category: 1 Nodule number: Three Location: Left lateral Size: 0.9 by 0.7 x 0.8 cm compared to 1.0 x 0.8 x 0.7 cm. Composition: Solid Echogenicity: Hypoechoic Shape: wider than tall. Margins: Lobulated Echogenic foci: None Total points: 4 ACR TI-RADS category: 4 IMPRESSION: 1. Stable interval exam with no change in recommendations. 2. Lesions 1 and 3 are category 4. Secondary to size, recommend interval imaging is at 1, 2, 3 and 5 years from initial visualization. 3. Lesion 1 is considered category 1 and no additional follow-up is recommended. ACR TI-RADS definitions and recommendations: TI-RADS 1 (benign): 0 points. FNA not needed. TI-RADS 2 (not suspicious): 2 points. FNA not needed. TI-RADS 3 (mildly suspicious): 3 points. ? FNA if 2.5 cm or larger, follow up if 1.5 cm or larger (at 1, 3, and 5 years). TI-RADS 4 (moderately suspicious): 4-6 points. ? FNA if 1.5 cm or larger, follow up if 1 cm or larger (at 1, 2, 3, and 5 years). TI-RADS 5 (highly suspicious): 7 points or more. ? FNA if 1 cm or larger, follow up if 0.5 cm or larger (every year for 5 years). Reviewed by: Claribel Hess MD on 11/29/2020 10:51 AM PST Approved by: Claribel Hess MD on 11/29/2020 10:51 AM RUST Station ID: [id number]
== END 2020-11-28 18:57 | disposition home or self-care (01) ==
LOC: DI 18:56
PROVIDERS: ATTEND Physician Assistant Medical
DX: E04.1 Nontoxic single thyroid nodule (principal)

== ENCOUNTER 2020-12-14 08:00 | Outpatient (CLI) | payer MEDICARE, OTHER ==
[2020-12-14 18:14] LABS: BASOPHILS # (AUTO) 0.1 10^3/uL (0.0-0.1); BASOPHILS % (AUTO) 1.1 %; EOSINOPHILS # (AUTO) 0.6 10^3/uL (0.0-0.7); HCT - HEMATOCRIT 37.4 % (37.0-47.0); HGB - HEMOGLOBIN 11.9 g/dL (12.0-16.0); LYMPHOCYTES # (AUTO) 1.9 10^3/uL (1.5-3.5); LYMPHOCYTES % (AUTO) 18.7 %; MEAN CORPUSCULAR HEMOGLOBIN 29.1 pg (27.0-31.0); MEAN CORPUSCULAR HGB CONC 31.8 g/dL (32.0-36.0); MEAN CORPUSCULAR VOLUME 91.4 fL (81.0-99.0); MEAN PLATELET VOLUME 10.6 fL (7.9-10.8); MONOCYTES # (AUTO) 0.4 10^3/uL (0.0-1.0); MONOCYTES % (AUTO) 3.6 %; NEUTROPHILS # (AUTO) 7.1 10^3/uL (1.5-6.6); NEUTROPHILS % (AUTO) 70.2 %; PLT - PLATELET COUNT 356 10^3/uL (130-450); RED BLOOD COUNT 4.09 10^6/uL (4.20-5.40); RED CELL DISTRIBUTION WIDTH 17.3 % (12.0-15.0); WHITE BLOOD COUNT 10.1 x10^3/uL (4.8-10.8)
[2020-12-14 18:39] LABS: % IRON SATURATION 31 % (20-50); IRON 95 ug/dL (28-170); TOTAL IRON BINDING CAPACITY 304 ug/dL (250-450); TRANSFERRIN 217 mg/dL (192-382)
== END 2020-12-14 23:59 | disposition home or self-care (01) ==
LOC: LAB.WCP 08:00
PROVIDERS: ATTEND Student in an Organized Health Care Education/Training Program
DX: K59.01 Slow transit constipation (principal); R10.32 Left lower quadrant pain; D64.9 Anemia, unspecified
CPT/HCPCS: 36415; 83540; 84466; 85025

== ENCOUNTER 2021-01-08 07:00 | Outpatient (CLI) | payer MEDICARE, OTHER | END 2021-01-08 23:59 | disposition home or self-care (01) | LOC: LAB.WCP 07:00 | PROVIDERS: ATTEND Physician Assistant Medical | DX: R30.0 Dysuria (principal) | CPT/HCPCS: 87077; 87086; 87181 ==

== ENCOUNTER 2021-03-27 08:00 | Outpatient (CLI) | payer MEDICARE, OTHER ==
[2021-03-27 18:09] LABS: BASOPHILS # (AUTO) 0.1 10^3/uL (0.0-0.1); BASOPHILS % (AUTO) 1.2 %; EOSINOPHILS # (AUTO) 0.2 10^3/uL (0.0-0.7); EOSINOPHILS % (AUTO) 1.5 %; LYMPHOCYTES # (AUTO) 2.3 10^3/uL (1.5-3.5); LYMPHOCYTES % (AUTO) 22.8 %; MEAN CORPUSCULAR HEMOGLOBIN 31.2 pg (27.0-31.0); MEAN CORPUSCULAR HGB CONC 32.5 g/dL (32.0-36.0); MEAN CORPUSCULAR VOLUME 95.9 fL (81.0-99.0); MONOCYTES # (AUTO) 0.7 10^3/uL (0.0-1.0); MONOCYTES % (AUTO) 6.8 %; NEUTROPHILS # (AUTO) 6.9 10^3/uL (1.5-6.6); NEUTROPHILS % (AUTO) 67.2 %; PLT - PLATELET COUNT 365 10^3/uL (130-450); RED BLOOD COUNT 4.17 10^6/uL (4.20-5.40); RED CELL DISTRIBUTION WIDTH 15.1 % (12.0-15.0); WHITE BLOOD COUNT 10.2 x10^3/uL (4.8-10.8)
[2021-03-27 18:20] LABS: ALBUMIN/GLOBULIN RATIO 1.5 (1.0-2.2); BILIRUBIN,TOTAL 0.6 mg/dL (0.2-1.0); CALCIUM 9.9 mg/dL (8.5-10.3); POTASSIUM 4.5 mmol/L (3.5-5.0); TOTAL PROTEIN 6.6 g/dL (6.7-8.2)
== END 2021-03-27 23:59 | disposition home or self-care (01) ==
LOC: LAB.WCP 08:00
PROVIDERS: ATTEND Internal Medicine Rheumatology
DX: M06.9 Rheumatoid arthritis, unspecified (principal); M06.4 Inflammatory polyarthropathy
CPT/HCPCS: 36415; 80053; 85025; 85651

== ENCOUNTER 2021-04-10 15:47 | Emergency (ER) | payer MEDICARE, OTHER ==
[2021-04-10 15:56] VITALS: BP 142/84
== END 2021-04-10 17:19 | disposition left against medical advice (07) ==
LOC: ED 15:47
DX: Z53.21 Procedure and treatment not carried out due to patient leaving prior to being seen by health care provider (principal)

== ENCOUNTER 2021-04-18 17:54 | Emergency (ER) | payer MEDICARE, OTHER ==
--- NOTE | 2021-04-18 19:03 | Ultrasound Report ---
PROCEDURE: Duplex Ext Veins Right INDICATIONS: swelling pain TECHNIQUE: Real-time imaging, as well as color and pulse Doppler interrogation, were performed of the lower extr emity deep veins from the inguinal ligament to the popliteal fossa. COMPARISON: None. FINDINGS: The deep veins are normally compressible, and free of intraluminal thrombus. Color and pu lse Doppler demonstrate normal phasic intraluminal flow. There is normal augmentation response to di stal compression maneuver. There are soft tissue fluid collections in the right calf. The first measures 15.2 x 2.9 x 2.9 cm pos teriorly and the second measures 11.4 x 2.1 x 5.0 cm medially. IMPRESSION: 1. No evidence of deep venous thrombosis, right lower extremity. 2. Soft tissue complex fluid collections may reflect old soft tissue hematomas in the calf Reviewed by: David Gunter MD on 04/18/2021 6:02 PM TAMIKA Approved by: David Gunter MD on 04/18/2021 6:02 PM AKWALTER Station ID: [id number]
--- NOTE | 2021-04-18 21:47 | ED Physician Documentation ---
History of Present Illness - Stated complaint Stated Complaint: RT LEG PX - Chief complaint Chief Complaint: Ext Problem - Additonal information Additional information: 81-year-old female here for right leg swelling for about 10 days. Pain initially began when ascending the stairs at her house she felt a pull in the back of her calf and has had pain since with persistent swelling. No fevers. No history of DVT or cancer. Is not anticoagulated. 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: Breast cancer Psych: None Musculoskeletal: Osteoarthritis, Rheumatoid arthritis, Osteoporosis, Chronic back pain - Past Surgical History Past Surgical History: Yes General: Appendectomy Ortho: Arthroscopic surgery /DIRECTOR OF HEMOPHILIA: Mastectomy HEENT: Tonsil/Adenoidectomy - Present Medications Home Medications: Ambulatory Orders Medication Instructions Recorded Confirmed Chlordiazepoxide/Clidinium Br 1 each PO BID PRN 11/18/13 10/20/20 [Chlordiazepoxide-Clidinium Cap] Ascorbic Acid [Vitamin C] 1,000 mg PO DAILY 08/07/17 10/20/20 Cholecalciferol (Vitamin D3) 2,000 unit PO DAILY 08/07/17 10/20/20 [Vitamin D3] Flaxseed Oil 1,000 mg PO DAILY 08/07/17 10/20/20 Krill/[place]-3/Dha/Epa/Lipids 1 cap PO DAILY 08/07/17 10/20/20 [Krill Oil 350 mg Softgel] L. Acidophilus/L. Rhamnosus 1 each PO DAILY 08/07/17 10/20/20 [Probiotic 15 Billion Cell Cap] Leflunomide 20 mg PO DAILY 08/07/17 10/20/20 Magnesium 400 mg PO DAILY 08/07/17 10/20/20 Multivit with Calcium,Iron,Min 1 tab PO DAILY 08/07/17 10/20/20 [Multiple Vitamins For Women] Vitamin E 100 unit PO DAILY 08/07/17 10/20/20 Furosemide [Lasix] 20 mg PO DAILY #15 tablet 07/09/18 10/20/20 Levothyroxine Sodium [Synthroid] 50 mcg PO QDAC 07/09/18 10/20/20 Potassium Chloride 10 meq PO DAILY #15 tab.er.prt 07/09/18 10/20/20 predniSONE [Prednisone] 5 mg PO DAILY 07/09/18 10/20/20 Spironolactone 1 tab PO DAILY 09/17/18 10/20/20 carvediloL [Carvedilol] 1.5 tab PO BID 12/10/18 10/20/20 Losartan [Cozaar] 75 mg PO BID 04/01/19 10/20/20 Famotidine [Pepcid] 20 mg PO DAILY #20 tablet 10/20/20 Ondansetron Odt [Zofran] 4 mg TL Q6H PRN #10 tablet 10/20/20 - Allergies Allergies/Adverse Reactions: Allergies Allergy/AdvReac Type Severity Reaction Status Date / Time hydrocodone AdvReac Dizziness Verified 04/18/21 18:12 - Social History Does the pt smoke?: No Smoking Status: Never smoker Does the pt drink ETOH?: No Does the pt have substance abuse?: No - Immunizations Immunizations are current?: Yes - POLST Patient has POLST: Yes PD ED PE EXPANDED - General General: Alert, No acute distress - Extremities Extremities: Right leg (Mild swelling of the right leg with pedal edema and tenderness in the posterior calf. There is no ecchymosis.) Results - Vitals Vitals: Vital Signs - 24 hr 04/18/21 18:12 Temperature 36.8 C Heart Rate 75 Respiratory 16 Rate Blood Pressure 117/65 O2 Saturation 96 Oxygen O2 Source Room air - Rads (name of study) right leg US Radiology: Final report received (Negative for DVT. Fairly large hematoma is noted.) PD MEDICAL DECISION MAKING - ED course Complexity details: reviewed results, re-evaluated patient, d/w patient ED course: Well-appearing 81-year-old female presents to the emergency department for evaluation of right leg swelling and pain for about 10 days that began after ascending the stairs. There is mild swelling and posterior calf pain tenderness. Ultrasound does not show a DVT. However does show a fairly large hematoma. Routine care and emergent return precautions were discussed. Advised continued follow-up with her primary care doctor. Departure - Departure Disposition: 01 Home, Self Care Clinical Impression: Hematoma Condition: Stable Record reviewed to determine appropriate education?: Yes Instructions: ED Hematoma Comments: Corinne the ultrasound does not show blood clot in your veins. You likely tore your muscle as you were climbing the stairs at your house and this has caused bruising and bleeding within the muscle body. This is called a hematoma. Yours is fairly large but there is no particular treatment to get it better. Is simply time. If you develop fevers, have increased pain, develop any redness or have red streaking of the leg please return the ER for second look.
[2021-04-18 21:55] VITALS: BP 148/77
== END 2021-04-18 22:13 | disposition home or self-care (01) ==
LOC: ED 17:54
DX: S80.11XA Contusion of right lower leg, initial encounter (principal); X50.9XXA Other and unspecified overexertion or strenuous movements or postures, initial encounter; X50.0XXA Overexertion from strenuous movement or load, initial encounter; Y93.01 Activity, walking, marching and hiking; Y92.008 Other place in unspecified non-institutional (private) residence as the place of occurrence of the external cause
CPT/HCPCS: 99283; 99284

== ENCOUNTER 2021-05-02 08:18 | Outpatient (CLI) | payer MEDICARE, OTHER ==
[2021-05-02 08:53] LABS: CHOLESTEROL 246 mg/dL; HDL CHOLESTEROL 62 mg/dL; LDL CHOLESTEROL,CALCULATED 161 mg/dL; LDL/HDL RATIO 2.6 (<4.4); TRIGLYCERIDES 115 mg/dL; VLDL CHOLESTEROL 23 mg/dL
[2021-05-02 09:05] LABS: THYROID STIMULATING HORMONE 5.18 uIU/mL (0.34-5.60)
== END 2021-05-02 08:19 | disposition home or self-care (01) ==
LOC: LAB 08:18
PROVIDERS: ATTEND Physician Assistant Medical
DX: E78.5 Hyperlipidemia, unspecified (principal); R53.83 Other fatigue; E03.9 Hypothyroidism, unspecified
CPT/HCPCS: 36415; 80061; 82306; 82607; 83721; 84443

== ENCOUNTER 2021-05-24 10:49 | Outpatient (CLI) | payer MEDICARE, OTHER ==
[2021-05-24 11:35] LABS: THYROID STIMULATING HORMONE 3.51 uIU/mL (0.34-5.60)
== END 2021-05-24 10:50 | disposition home or self-care (01) ==
LOC: LAB 10:49
PROVIDERS: ATTEND Physician Assistant Medical
DX: E03.9 Hypothyroidism, unspecified (principal)
CPT/HCPCS: 36415; 84443

== ENCOUNTER 2021-07-09 10:09 | Outpatient (CLI) | payer MEDICARE, OTHER ==
[2021-07-09 10:35] LABS: BASOPHILS # (AUTO) 0.1 10^3/uL (0.0-0.1); BASOPHILS % (AUTO) 0.9 %; EOSINOPHILS # (AUTO) 0.2 10^3/uL (0.0-0.7); EOSINOPHILS % (AUTO) 1.6 %; HCT - HEMATOCRIT 39.5 % (37.0-47.0); LYMPHOCYTES # (AUTO) 2.2 10^3/uL (1.5-3.5); LYMPHOCYTES % (AUTO) 23.1 %; MEAN CORPUSCULAR HEMOGLOBIN 31.8 pg (27.0-31.0); MEAN CORPUSCULAR HGB CONC 32.9 g/dL (32.0-36.0); MEAN CORPUSCULAR VOLUME 96.6 fL (81.0-99.0); MEAN PLATELET VOLUME 8.9 fL (7.9-10.8); MONOCYTES # (AUTO) 0.7 10^3/uL (0.0-1.0); MONOCYTES % (AUTO) 7.2 %; NEUTROPHILS # (AUTO) 6.4 10^3/uL (1.5-6.6); NEUTROPHILS % (AUTO) 66.6 %; PLT - PLATELET COUNT 292 10^3/uL (130-450); RED BLOOD COUNT 4.09 10^6/uL (4.20-5.40); RED CELL DISTRIBUTION WIDTH 14.6 % (12.0-15.0); WHITE BLOOD COUNT 9.6 x10^3/uL (4.8-10.8)
[2021-07-09 10:39] LABS: BILIRUBIN,URINE NEGATIVE (NEGATIVE); GLUCOSE, URINE (UA) NEGATIVE (NEGATIVE); KETONES,URINE (UA) NEGATIVE (NEGATIVE); LEUKOCYTE ESTERASE, URINE NEGATIVE (NEGATIVE); NITRITE,URINE NEGATIVE (NEGATIVE); OCCULT BLOOD,URINE NEGATIVE (NEGATIVE); PH,URINE 6.5 PH (5.0-7.5); PROTEIN,URINE NEGATIVE (NEGATIVE); UROBILINOGEN,URINE 0.2 (NORMAL) E.U./dL (NORMAL)
[2021-07-09 10:42] LABS: ESTIMATED AVERAGE GLUCOSE 114 mg/dL (70-100); HEMOGLOBIN A1c% 5.6 % (4.27-6.07)
[2021-07-09 10:44] LABS: CALCIUM 9.7 mg/dL (8.5-10.3); CREATININE 1.1 mg/dL (0.4-1.0); POTASSIUM 4.9 mmol/L (3.5-5.0)
[2021-07-09 10:48] LABS: BACTERIA,URINE Rare /HPF (None Seen); CLARITY,URINE CLEAR (CLEAR); RBC,URINE None Seen /HPF (0-5); SQUAMOUS EPITHELIAL CELL,UR NONE SEEN (<= Few); WBC,URINE 0-3 /HPF (0-5)
== END 2021-07-09 10:10 | disposition home or self-care (01) ==
LOC: LAB 10:09
PROVIDERS: ATTEND Orthopaedic Surgery
DX: Z01.818 Encounter for other preprocedural examination (principal); N39.0 Urinary tract infection, site not specified; R73.9 Hyperglycemia, unspecified
CPT/HCPCS: 36415; 80048; 81001; 83036; 85025; 87086; 93005

== ENCOUNTER 2021-07-12 12:27 | Outpatient (CLI) | payer MEDICARE, OTHER ==
--- NOTE | 2021-07-12 14:15 | XRAY Report ---
PROCEDURE: Shoulder 2 View LT INDICATIONS: SHOULDER PAIN LEFT TECHNIQUE: 2 views of the shoulder were acquired. COMPARISON: None. FINDINGS: Bones: No fractures or dislocations. :!!! 07/05/2016. No suspicious bony lesions. Visualized ribs ap pear intact. Soft tissues: No suspicious soft tissue calcifications. IMPRESSION: Moderate left shoulder joint osteoarthritis. No fracture or dislocation. Reviewed by: Shadi Medellin MD on 07/12/2021 2:13 PM PDT Approved by: Shadi Medellin MD on 07/12/2021 2:13 PM PDT Station ID: [id number]
== END 2021-07-12 12:28 ==
LOC: DI.N 12:27
PROVIDERS: ATTEND Family Medicine
DX: M25.512 Pain in left shoulder (principal); M19.012 Primary osteoarthritis, left shoulder

== ENCOUNTER 2021-08-08 17:47 | Outpatient (CLI) | payer MEDICARE, OTHER ==
--- NOTE | 2021-08-09 08:34 | XRAY Report ---
PROCEDURE: Hip w/Pelvis 2-3V LT INDICATIONS: LEFT HIP PAIN S/P FALL TECHNIQUE: AP pelvis with lateral view(s) of the left hip(s). COMPARISON: CT abdomen pelvis 10/20/2020 FINDINGS: Bones: No fractures or dislocations. Right hip arthroplasty components are intact. Left femoral acet abular joint is normally positioned. There is mild circumferential joint space loss, wispy dystrophic calcification along its. Acetabulum and marginal spurring to a mild degree. Pelvic ring appears int act. Hypertrophic and sclerotic degenerative changes are seen at the pubic symphysis. Degenerative e ndplate spurring is present in the lower lumbar spine. No suspicious bony lesions. Soft tissues: The visualized bowel gas pattern is normal. No suspicious soft tissue calcifications. Moderate atherosclerotic calcification. IMPRESSION: 1. No left hip fracture or pelvic fracture. 2. Intact right hip arthroplasty components. 3. Mild degenerative change in the left femoral acetabular joint including dystrophic periarticular c alcifications. No significant change since recent CT scan. Reviewed by: Arin Santana MD on 08/09/2021 8:33 AM PDT Approved by: Arin Santana MD on 08/09/2021 8:33 AM PDT Station ID: [id number]
== END 2021-08-08 23:59 ==
LOC: DI.N 17:47
PROVIDERS: ATTEND Physician Assistant Medical
DX: S70.02XA Contusion of left hip, initial encounter (principal); M16.12 Unilateral primary osteoarthritis, left hip; Z96.641 Presence of right artificial hip joint

== ENCOUNTER 2021-12-09 17:10 | Emergency (ER) | payer MEDICARE, OTHER ==
--- NOTE | 2021-12-09 18:11 | XRAY Report ---
PROCEDURE: Shoulder 3 View RT INDICATIONS: pain for one week after working in yard TECHNIQUE: Views of the left shoulderwere acquired. COMPARISON: None. FINDINGS: Bones: Status post right shoulder replacement. There is anterior dislocation of the right shoulder. T here are degenerative changes of the right acromioclavicular joint with widening. Soft tissues: No suspicious soft tissue calcifications. IMPRESSION: 1. Right shoulder anterior dislocation. 2. Postoperative changes of right shoulder replacement. 3. Degenerative changes of the right acromioclavicular joint with widening. Reviewed by: Jermaine Jaimes on 12/09/2021 6:09 PM PST Approved by: Jermaine Jaimes on 12/09/2021 6:09 PM PST Station ID: [id number] - [id number]
[2021-12-09] MEDS ORDERED: ACETAMINOPHEN/CODEINE 300 MG/30 MG TABLET PO STA (19:03)
[2021-12-09] MEDS ORDERED: cephALEXin 250 MG CAPSULE PO STA (19:03)
--- NOTE | 2021-12-09 19:09 | ED Physician Documentation ---
PD HPI UPPER EXT INJURY - Stated complaint Stated Complaint: RIGHT SHOULDER/SIDE PX - Chief complaint Chief Complaint: Ext Problem - History obtained from History obtained from: Patient - History of Present Illness Location: Right, Shoulder Type of injury: Other (she had done moderate amount of yard work a week ago and has had pain in shoulder since then, worse with ROM. Had not done much yard work since shoulder replacement surgery few months ago. Denies fall/direct injury.). No: Fall, Twist Where injury occurred: Home Timing - onset: How many weeks ago (1) Timing - duration: Weeks (1) Timing - details: Gradual onset, Still present Worsened by: Moving Associated symptoms: Discolored (there is redness of the skin anterior shoulder in area of scar tissue.). No: Weakness, Numbness, Swelling Contributing factors: Prosthetic joint Similar symptoms before: Has not had sx before Review of Systems Constitutional: denies: Fever, Chills Nose: denies: Rhinorrhea / runny nose, Congestion Throat: denies: Sore throat Cardiac: denies: Chest pain / pressure Respiratory: denies: Cough Skin: reports: Rash (redness without sores anterior right shoulder). 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 She states the right shoulder is consistently forward of joint since surgery. ), Arthroscopic surgery /DIE CAST OPERATOR: Mastectomy HEENT: Tonsil/Adenoidectomy - Present Medications Home Medications: Ambulatory Orders Medication Instructions Recorded Confirmed Chlordiazepoxide/Clidinium Br 1 each PO BID PRN 11/18/13 10/20/20 [Chlordiazepoxide-Clidinium Cap] Ascorbic Acid [Vitamin C] 1,000 mg PO DAILY 08/07/17 10/20/20 Cholecalciferol (Vitamin D3) 2,000 unit PO DAILY 08/07/17 10/20/20 [Vitamin D3] Flaxseed Oil 1,000 mg PO DAILY 08/07/17 10/20/20 Krill/[place]-3/Dha/Epa/Lipids 1 cap PO DAILY 08/07/17 10/20/20 [Krill Oil 350 mg Softgel] L. Acidophilus/L. Rhamnosus 1 each PO DAILY 08/07/17 10/20/20 [Probiotic 15 Billion Cell Cap] Leflunomide 20 mg PO DAILY 08/07/17 10/20/20 Magnesium 400 mg PO DAILY 08/07/17 10/20/20 Multivit with Calcium,Iron,Min 1 tab PO DAILY 08/07/17 10/20/20 [Multiple Vitamins For Women] Vitamin E 100 unit PO DAILY 08/07/17 10/20/20 Furosemide [Lasix] 20 mg PO DAILY #15 tablet 07/09/18 10/20/20 Levothyroxine Sodium [Synthroid] 50 mcg PO QDAC 07/09/18 10/20/20 Potassium Chloride 10 meq PO DAILY #15 tab.er.prt 07/09/18 10/20/20 predniSONE [Prednisone] 5 mg PO DAILY 07/09/18 10/20/20 Spironolactone 1 tab PO DAILY 09/17/18 10/20/20 carvediloL [Carvedilol] 1.5 tab PO BID 12/10/18 10/20/20 Losartan [Cozaar] 75 mg PO BID 04/01/19 10/20/20 Famotidine [Pepcid] 20 mg PO DAILY #20 tablet 10/20/20 Ondansetron Odt [Zofran] 4 mg TL Q6H PRN #10 tablet 10/20/20 Acetaminophen/Cod 300/30 [Tylenol 1 each PO Q6H PRN #14 tablet 12/09/21 #3] Naproxen 250 mg PO BID 7 Days #14 tablet 12/09/21 cephALEXin [Keflex] 500 mg PO TID 5 Days #15 cap 12/09/21 - Allergies Allergies/Adverse Reactions: Allergies Allergy/AdvReac Type Severity Reaction Status Date / Time hydrocodone AdvReac Dizziness Verified 12/09/21 17:15 - Social History Does the pt smoke?: No Smoking Status: Never smoker Does the pt drink ETOH?: No Does the pt have substance abuse?: No - Immunizations Immunizations are current?: Yes - POLST Patient has POLST: Yes PD ED PE NORMAL - Vitals Vital signs reviewed: Yes - General General: Alert and oriented X 3, Well developed/nourished, Other (she appears guarded and in pain with attempting ROM of the right shoulder. The humeral head feels translated anterior to the joint. Scar overlying anterior shoulder well healed. The skin has some warmth and redness/tender without skin sores per se. ROM of the shoulder, including ext rotation limited) Results - Vitals Vitals: Vital Signs - 24 hr 12/09/21 12/09/21 17:15 19:22 Temperature 36.5 C Heart Rate 99 78 Respiratory 18 18 Rate Blood Pressure 130/60 156/67 H O2 Saturation 92 98 Oxygen O2 Source Room air - Rads (name of study) right shoulder Radiology: Prelim report reviewed (arthroplasty noted. NO fractures. THe shoulder is displaced anterior to the joint sulcus. ), See rad report PD MEDICAL DECISION MAKING - ED course Complexity details: reviewed results, re-evaluated patient (presume some inflammation, stretching of adhesions with recent outdoor work. Can use NSAIDS, sling intermittently, and she says T#3 are only pain meds she can tolerate. ), considered differential, d/w patient, d/w provider relations consultant (s/w her Ortho, Dr. Phillips, who said the humeral head is chronically translated anteriorly of joint, so is not acutely dislocated. ) Departure - Departure Disposition: 01 Home, Self Care Clinical Impression: Chronic dislocation of right shoulder, Cellulitis of shoulder Right shoulder strain Qualifiers: Encounter type: initial encounter Qualified Code(s): S46.911A - Strain of unspecified muscle, fascia and tendon at shoulder and upper arm level, right arm, initial encounter Condition: Stable Record reviewed to determine appropriate education?: Yes Instructions: ED Infec Skin Cellulitis Follow-Up: Meron Mcdaniel PA-C [Primary Care Provider] - Brice Bean MD [Physician No Access] - Prescriptions: cephALEXin [Keflex] 500 mg PO TID 5 Days #15 cap Naproxen 250 mg PO BID 7 Days #14 tablet Acetaminophen/Cod 300/30 [Tylenol #3] 1 each PO Q6H PRN #14 tablet PRN Reason: Pain Comments: I talked with your orthopedist Dr. Mccain who said that your shoulder is typically dislocated just as you had said. Presume there is some inflammation of the muscles from the use you are done. There is also redness of the skin neck is suggestive of a skin infection called cellulitis. Cephalexin 3 times a day for 5 days as directed. Naproxen anti-inflammatory twice daily with food for a week or pain and inflammation. To that add Tylenol No. 3 as you said this is worked best for you in the past. Use that every 6 hours if needed for worse pain. Recheck if not improving well over the next several days. Activity as tolerated. You could consider use of your sling at home periodically to help reduce motion. I transmitted the prescriptions to [facility] pharmacy in [place]. I am prescribing a short course of narcotic pain medication for you. These are potentially dangerous and addictive medications that should be used carefully. These medications may constipate you. Take an taxj-fla-tjusbgr stool softener such as docusate twice daily with plenty of water while taking these medications. If you go 24 hours without a bowel movement, take [id number] MiraLAX, per package instructions. Do not drink or drive while taking these medications. If you received narcotic or sedating medications while in the emergency department do not drive for 24 hours. Store this medication in a safe, secure place and out of reach of children. It is a violation of federal law to give or sell this medication to another person or to use in a manner other than prescribed. The ED will not refill narcotic prescriptions, including prescriptions lost or s tolen. You can dispose of unwanted medications at the [facility]'s office or at several pharmacies such as [facility]. Discharge Date/Time: 12/09/21 19:22
[2021-12-09 19:23] VITALS: BP 156/67
== END 2021-12-09 19:22 | disposition home or self-care (01) ==
LOC: ED 17:10
DX: M24.411 Recurrent dislocation, right shoulder (principal); L03.113 Cellulitis of right upper limb; Z96.611 Presence of right artificial shoulder joint
CPT/HCPCS: 73030; 99283; A9270

== ENCOUNTER 2021-12-22 08:14 | Emergency (ER) | payer MEDICARE, OTHER ==
--- NOTE | 2021-12-22 09:02 | ED Physician Documentation ---
History of Present Illness - Stated complaint Stated Complaint: R SHOULDER PX - Chief complaint Chief Complaint: Ext Problem - History obtained from History obtained from: Patient - History of Present Illness Timing: How many weeks ago (2) - Additonal information Additional information: 81-year-old female has had an shoulder arthroplasty done 1 year ago was out in her garden gardening 2 weeks ago when she finished that she had some swelling the next day and she came in to see Dr. Sepulveda here in the emergency department. He placed patient on some Keflex with some redness to the shoulder. She states that the redness did not seem to get much different the swelling has not gotten much different either. She has continued pain and today the pain is worse. She has come to the emergency department today with pain into her axilla on the right side. She did have a fall the day after she was in the emergency department she has some bruising to her back and her right knee and she has pain in both shoulders. She has been on a new medication over the past month that is an immunological and and she is worried about infection. She has not had fever she has had some shaking chills. She did have a fall the day after she was here and injured her left shoulder and her back. She denies any injury to her head. Review of Systems Constitutional: reports: Myalgias, Fatigue. denies: Fever, Chills Eyes: denies: Loss of vision Ears: denies: Ear pain Nose: denies: Congestion Throat: denies: Sore throat Cardiac: denies: Chest pain / pressure, Palpitations Respiratory: denies: Dyspnea, Cough GI: denies: Abdominal Pain, Vomiting, Diarrhea : denies: Dysuria Skin: denies: Rash Musculoskeletal: reports: Joint pain, Joint swelling. 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 She states the right shoulder is consistently forward of joint since surgery. ), Arthroscopic surgery /TERMITE TREATER: Mastectomy HEENT: Tonsil/Adenoidectomy - Present Medications Home Medications: Ambulatory Orders Medication Instructions Recorded Confirmed Chlordiazepoxide/Clidinium Br 1 each PO BID PRN 11/18/13 10/20/20 [Chlordiazepoxide-Clidinium Cap] Ascorbic Acid [Vitamin C] 1,000 mg PO DAILY 08/07/17 10/20/20 Cholecalciferol (Vitamin D3) 2,000 unit PO DAILY 08/07/17 10/20/20 [Vitamin D3] Flaxseed Oil 1,000 mg PO DAILY 08/07/17 10/20/20 Krill/[place]-3/Dha/Epa/Lipids 1 cap PO DAILY 08/07/17 10/20/20 [Krill Oil 350 mg Softgel] L. Acidophilus/L. Rhamnosus 1 each PO DAILY 08/07/17 10/20/20 [Probiotic 15 Billion Cell Cap] Leflunomide 20 mg PO DAILY 08/07/17 10/20/20 Magnesium 400 mg PO DAILY 08/07/17 10/20/20 Multivit with Calcium,Iron,Min 1 tab PO DAILY 08/07/17 10/20/20 [Multiple Vitamins For Women] Vitamin E 100 unit PO DAILY 08/07/17 10/20/20 Furosemide [Lasix] 20 mg PO DAILY #15 tablet 07/09/18 10/20/20 Levothyroxine Sodium [Synthroid] 50 mcg PO QDAC 07/09/18 10/20/20 Potassium Chloride 10 meq PO DAILY #15 tab.er.prt 07/09/18 10/20/20 predniSONE [Prednisone] 5 mg PO DAILY 07/09/18 10/20/20 Spironolactone 1 tab PO DAILY 09/17/18 10/20/20 carvediloL [Carvedilol] 1.5 tab PO BID 12/10/18 10/20/20 Losartan [Cozaar] 75 mg PO BID 04/01/19 10/20/20 Famotidine [Pepcid] 20 mg PO DAILY #20 tablet 10/20/20 Ondansetron Odt [Zofran] 4 mg TL Q6H PRN #10 tablet 10/20/20 Acetaminophen/Cod 300/30 [Tylenol 1 each PO Q6H PRN #14 tablet 12/09/21 #3] Naproxen 250 mg PO BID 7 Days #14 tablet 02/21/22 cephALEXin [Keflex] 500 mg PO TID 5 Days #15 cap 12/09/21 Ondansetron Odt [Zofran] 4 mg TL Q6H PRN #10 tablet 12/22/21 Oxycodone HCl/Acetaminophen 1 - 2 each PO Q6H PRN #14 tablet 12/22/21 [Percocet 5-325 mg Tablet] - Allergies Allergies/Adverse Reactions: Allergies Allergy/AdvReac Type Severity Reaction Status Date / Time hydrocodone AdvReac Dizziness Verified 12/22/21 08:48 - Social History Does the pt smoke?: No Smoking Status: Never smoker Does the pt drink ETOH?: No Does the pt have substance abuse?: No - Immunizations Immunizations are current?: Yes - POLST Patient has POLST: Yes PD ED PE NORMAL - Vitals Vital signs reviewed: Yes (hypertensive ) - General General: Alert and oriented X 3, No acute distress, Well developed/nourished - HEENT HEENT: Atraumatic, PERRL, EOMI - Neck Neck: Supple, no meningeal sign, No bony TTP - Cardiac Cardiac: RRR, No murmur - Respiratory Respiratory: No respiratory distress, Clear bilaterally - Abdomen Abdomen: Soft, Non tender - Derm Derm: Normal color, Warm and dry, No rash - Extremities Extremities: Other (marked swelling to the right shoulder about the size of a soft ball. Anterior protrusion without significant tenderness to light touch. erythema overlying mass is blanching and improves after deflation with drainage of joint. reduced ROM. Pain to axilla without palpable mass. ) - Neuro Neuro: Alert and oriented X 3, vacuum bottle assembler 2-12 intact, No motor deficit, No sensory deficit, Normal speech Eye Opening: Spontaneous Motor: Obeys Commands Verbal: Oriented GCS Score: 15 - Psych Psych: Normal mood, Normal affect Results - Vitals Vitals: Vital Signs - 24 hr 12/22/21 12/22/21 12/22/21 08:20 08:48 10:08 Temperature 37.1 C Heart Rate 66 65 62 Respiratory 16 17 15 Rate Blood Pressure 137/69 H 119/58 L 129/58 L O2 Saturation 96 96 99 12/22/21 11:55 Temperature Heart Rate 63 Respiratory 16 Rate Blood Pressure 146/66 H O2 Saturation 98 Oxygen O2 Source Room air - Labs Labs: Microbiology 12/22/21 10:35 Body Fluid Culture - Preliminary Other - Right Laboratory Tests 12/22/21 12/22/21 12/22/21 09:13 09:15 09:15 WBC 10.1 RBC 3.60 L Hgb 10.9 L Hct 33.7 L MCV 93.6 MCH 30.3 MCHC 32.3 RDW 14.6 Plt Count 593 H MPV 8.2 Neut # (Auto) 7.0 H Lymph # (Auto) 2.0 [place] # (Auto) 0.8 Eos # (Auto) 0.1 Baso # (Auto) 0.1 Absolute Nucleated RBC 0.00 Nucleated RBC % 0.0 ESR Sodium 129 L Potassium 4.4 Chloride 95 L Carbon Dioxide 24 Anion Gap 10.0 BUN 27 H Creatinine 1.2 H Estimated GFR (MDRD) 43 L Glucose 124 H Lactic Acid 1.1 Calcium 9.1 Total Bilirubin 0.8 AST 16 ALT 13 Alkaline Phosphatase 63 C-Reactive Protein 4.4 H Total Protein 6.1 L Albumin 3.3 Globulin 2.8 Albumin/Globulin Ratio 1.2 Lipase 44 Urine Color Urine Clarity Urine pH Ur Specific Webb Urine Protein Urine Glucose (UA) Urine Ketones Urine Occult Blood Urine Nitrite Urine Bilirubin Urine Urobilinogen Ur Leukocyte Esterase Ur Microscopic Review Urine Culture Comments Fluid Source Fluid Color Fluid Clarity Fluid WBC Fluid RBC Fluid Neutrophils % Fluid Lymphocytes % Fluid Monocytes % Fluid Eosinophils % Fluid Basophils % Fluid Blast Cells Fluid Macrophages % Fld Mesothelial Cell % Fluid Other Cells % Fluid Crystals 12/22/21 12/22/21 12/22/21 09:15 10:05 10:35 WBC RBC Hgb Hct MCV MCH MCHC RDW Plt Count MPV Neut # (Auto) Lymph # (Auto) [place] # (Auto) Eos # (Auto) Baso # (Auto) Absolute Nucleated RBC Nucleated RBC % ESR 39 H Sodium Potassium Chloride Carbon Dioxide Anion Gap BUN Creatinine Estimated GFR (MDRD) Glucose Lactic Acid Calcium Total Bilirubin AST ALT Alkaline Phosphatase C-Reactive Protein Total Protein Albumin Globulin Albumin/Globulin Ratio Lipase Urine Color YELLOW Urine Clarity CLEAR Urine pH 6.5 Ur Specific Webb 1.015 Urine Protein NEGATIVE Urine Glucose (UA) NEGATIVE Urine Ketones NEGATIVE Urine Occult Blood NEGATIVE Urine Nitrite NEGATIVE Urine Bilirubin NEGATIVE Urine Urobilinogen 0.2 (NORMAL) Ur Leukocyte Esterase NEGATIVE Ur Microscopic Review NOT INDICATED Urine Culture Comments NOT INDICATED Fluid Source SYNOVIAL Fluid Color YELLOW Fluid Clarity CLOUDY Fluid WBC 59284 Fluid RBC 23983 Fluid Neutrophils % 94 Fluid Lymphocytes % 2 Fluid Monocytes % 4 Fluid Eosinophils % 0 Fluid Basophils % 0 Fluid Blast Cells 0 Fluid Macrophages % 0 Fld Mesothelial Cell % 0 Fluid Other Cells % 0 Fluid Crystals 12/22/21 10:35 WBC RBC Hgb Hct MCV MCH MCHC RDW Plt Count MPV Neut # (Auto) Lymph # (Auto) [place] # (Auto) Eos # (Auto) Baso # (Auto) Absolute Nucleated RBC Nucleated RBC % ESR Sodium Potassium Chloride Carbon Dioxide Anion Gap BUN Creatinine Estimated GFR (MDRD) Glucose Lactic Acid Calcium Total Bilirubin AST ALT Alkaline Phosphatase C-Reactive Protein Total Protein Albumin Globulin Albumin/Globulin Ratio Lipase Urine Color Urine Clarity Urine pH Ur Specific Webb Urine Protein Urine Glucose (UA) Urine Ketones Urine Occult Blood Urine Nitrite Urine Bilirubin Urine Urobilinogen Ur Leukocyte Esterase Ur Microscopic Review Urine Culture Comments Fluid Source Fluid Color Fluid Clarity Fluid WBC Fluid RBC Fluid Neutrophils % Fluid Lymphocytes % Fluid Monocytes % Fluid Eosinophils % Fluid Basophils % Fluid Blast Cells Fluid Macrophages % Fld Mesothelial Cell % Fluid Other Cells % Fluid Crystals NONE SEEN Procedures - Arthrocentesis Joint: Shoulder Preparation: Sterile prep and drape, Ultrasound used Anesthesia: Lidocaine 1% Fluid: Sent for cell count, Cloudy, Sent for crystals, Sent for culture, Fluid obtained - cc (130), Sent for gram stain Aftercare: Dressing applied, No complications, Patient tolerated well PD MEDICAL DECISION MAKING - ED course Complexity details: reviewed results, re-evaluated patient, considered differential, d/w patient Departure - Departure Disposition: 01 Home, Self Care Clinical Impression: Arthritis of shoulder region, right Condition: Stable Instructions: ED Arthritis Rheumatoid Follow-Up: Meron Mcdaniel PA-C [Primary Care Provider] - Brice Bean MD [Physician No Access] - Prescriptions: Oxycodone HCl/Acetaminophen [Percocet 5-325 mg Tablet] 1 - 2 each PO Q6H PRN #14 tablet PRN Reason: pain Ondansetron Odt [Zofran] 4 mg TL Q6H PRN #10 tablet PRN Reason: Nausea / Vomiting Comments: Corinne, today it looks like you have a lot of fluid collected on your right shoulder we drained 230 mL of straw-colored fluid from the shoulder. This may be related to overuse or an infection. I have consulted Dr. Anabella Perry and she has recommended you follow-up with Dr. Bean this Thursday. She has recommended we not start antibiotics today. I have E scribed some pain medication and nausea medicine to [facility] in [place]. Discharge Date/Time: 12/22/21 12:56
[2021-12-22] MEDS ORDERED: lidocaine 1% 20 ML MDV SUBQ ONE (09:03)
[2021-12-22 09:21] LABS: BASOPHILS # (AUTO) 0.1 10^3/uL (0.0-0.1); BASOPHILS % (AUTO) 0.7 %; EOSINOPHILS # (AUTO) 0.1 10^3/uL (0.0-0.7); EOSINOPHILS % (AUTO) 0.7 %; HCT - HEMATOCRIT 33.7 % (37.0-47.0); HGB - HEMOGLOBIN 10.9 g/dL (12.0-16.0); LYMPHOCYTES % (AUTO) 19.6 %; MEAN CORPUSCULAR HEMOGLOBIN 30.3 pg (27.0-31.0); MEAN CORPUSCULAR HGB CONC 32.3 g/dL (32.0-36.0); MEAN CORPUSCULAR VOLUME 93.6 fL (81.0-99.0); MEAN PLATELET VOLUME 8.2 fL (7.9-10.8); MONOCYTES # (AUTO) 0.8 10^3/uL (0.0-1.0); MONOCYTES % (AUTO) 8.3 %; NEUTROPHILS % (AUTO) 69.7 %; PLT - PLATELET COUNT 593 10^3/uL (130-450); RED CELL DISTRIBUTION WIDTH 14.6 % (12.0-15.0); WHITE BLOOD COUNT 10.1 x10^3/uL (4.8-10.8)
[2021-12-22 09:39] LABS: ALBUMIN 3.3 g/dL (3.2-5.5); ALBUMIN/GLOBULIN RATIO 1.2 (1.0-2.2); BILIRUBIN,TOTAL 0.8 mg/dL (0.2-1.0); CALCIUM 9.1 mg/dL (8.5-10.3); CREATININE 1.2 mg/dL (0.4-1.0); CRP - C-REACTIVE PROTEIN 4.4 mg/dL (0-1.0); POTASSIUM 4.4 mmol/L (3.5-5.0); TOTAL PROTEIN 6.1 g/dL (6.7-8.2)
--- NOTE | 2021-12-22 09:57 | XRAY Report ---
PROCEDURE: Chest 1 View X-Ray INDICATIONS: chest pain TECHNIQUE: One view of the chest was acquired. COMPARISON: 10/26/2019 FINDINGS: Surgical changes and devices: Interval total right shoulder arthroplasty. Lungs and pleura: No pleural effusions or pneumothorax. Lungs are clear. Mediastinum: Mediastinal contours appear normal. Heart size is normal. Bones and chest wall: No suspicious bony lesions. Overlying soft tissues appear unremarkable. IMPRESSION: No evidence acute pulmonary process. Reviewed by: Amrit Acevedo MD on 12/22/2021 8:[address] [facility] Approved by: Amrit Acevedo MD on 12/22/2021 8:[address] [facility] Station ID: [id number]
--- NOTE | 2021-12-22 10:07 | XRAY Report ---
PROCEDURE: Shoulder 3 View RT INDICATIONS: swelling deformity. TECHNIQUE: 4 views of the shoulder were acquired. COMPARISON: 12/09/2021. FINDINGS: Bones: Again noted is a right shoulder prosthesis. On the previous study it was clearly anteriorly di slocated. On this study, it may be anteriorly subluxed. No evidence of hardware failure or loosening. No fractures. Postsurgical change at the AC joint with widening of the AC joint. No suspicious bony lesions. Visualized ribs appear intact. Soft tissues: No suspicious soft tissue calcifications. IMPRESSION: 1. Question anterior subluxation of right shoulder prosthesis. This is not definite. Above discussed with HERBERT BRAUN at the time of dictation. Apparently, a large amount of shoulder joint fluid is suspected clinically. There may be potential benefit from obtaining a CT of the shoul ozzie with intravenous contrast, although there would be significant metallic artifact. Reviewed by: Amrit Acevedo MD on 12/22/2021 9:06 AM [facility] Approved by: Amrit Acevedo MD on 12/22/2021 9:06 AM [facility] Station ID: [id number]
[2021-12-22 10:11] LABS: BILIRUBIN,URINE NEGATIVE (NEGATIVE); GLUCOSE, URINE (UA) NEGATIVE (NEGATIVE); KETONES,URINE (UA) NEGATIVE (NEGATIVE); LEUKOCYTE ESTERASE, URINE NEGATIVE (NEGATIVE); NITRITE,URINE NEGATIVE (NEGATIVE); OCCULT BLOOD,URINE NEGATIVE (NEGATIVE); PH,URINE 6.5 PH (5.0-7.5); PROTEIN,URINE NEGATIVE (NEGATIVE); UROBILINOGEN,URINE 0.2 (NORMAL) E.U./dL (NORMAL)
[2021-12-22 10:14] LABS: CLARITY,URINE CLEAR (CLEAR)
[2021-12-22 11:26] LABS: BF CLARITY CLOUDY
[2021-12-22 11:27] LABS: BF COLOR YELLOW; BF SOURCE SYNOVIAL
[2021-12-22 11:35] LABS: CC,BF RBC 30000 /mm^3; CC,BF WBC 97130 /mm^3
[2021-12-22 11:45] LABS: BASOPHILS %,BODY FLUID 0 %; BLASTS %,BF 0; EOSINOPHILS %,BODY FLUID 0 %; IMMATURE %,BF 0; LYMPHOCYTES %,BODY FLUID 2 %; MACROPHAGES %,BODY FLUID 0 %; MESOTHELIAL %, BF 0 %; MONOCYTES %,BODY FLUID 4 %; NEUTROPHILS %, BF 94 %
[2021-12-22 11:46] LABS: OTHER CELLS %,BODY FLUID 0 %
[2021-12-22 11:56] VITALS: BP 146/66
== END 2021-12-22 12:56 | disposition home or self-care (01) ==
LOC: ED 08:14
DX: M19.011 Primary osteoarthritis, right shoulder (principal); M25.411 Effusion, right shoulder
CPT/HCPCS: 20611; 36415; 80053; 81001; 81003; 81599; 83605; 83690; 85025; 85651; 86140; 87040; 87070; 87086; 87205; 89051; 89060; 99284

== ENCOUNTER 2022-02-11 13:23 | Emergency (ER) | payer MEDICARE, OTHER ==
--- NOTE | 2022-02-11 13:31 | ED Physician Documentation ---
PD HPI BACK PAIN - Stated complaint Stated Complaint: BACK INJ - History obtained from History obtained from: Patient - History of Present Illness Timing - onset: How many days ago (2) Timing - duration: Days (2) Timing - details: Abrupt onset (She states she was going up 4 steps and lost balance going up them and fell backward onto her buttocks/low back and then backward onto her head. No loss of consciousness. No headache. Pain in the lumbar area with movement. No leg weakness or numbness.), Still present Location: Lower Quality: Pain, Spasm Associated symptoms: No: Fever, Weakness, Numbness, Incontinent of urine Improves with: Rest Worsened by: Movement, Twisting Contributing factors: Trauma Similar symptoms before: Has not had sx before (has had recent pains with shoulders and had surgery right shoulder months ago. No prior low back problems chronicaly.) Review of Systems Constitutional: denies: Fever, Chills Nose: denies: Rhinorrhea / runny nose, Congestion Throat: denies: Sore throat Cardiac: denies: Chest pain / pressure Respiratory: denies: Cough GI: denies: Abdominal Pain : denies: Incontinent Skin: denies: Rash, Lesions Musculoskeletal: reports: Back pain. denies: Neck pain Neurologic: denies: Focal weakness, Numbness PD PAST MEDICAL HISTORY - Past Medical History Cardiovascular: None Respiratory: None Endocrine/Autoimmune: None GI: Other WELL TENDER: Breast cancer Psych: None Musculoskeletal: Osteoarthritis, Rheumatoid arthritis, Osteoporosis, Chronic back pain - Past Surgical History Past Surgical History: Yes General: Appendectomy Ortho: Shoulder arthroplasty (both shoulders. She states the right shoulder is consistently forward of joint since surgery. ), Arthroscopic surgery /WELL TENDER: Mastectomy HEENT: Tonsil/Adenoidectomy - Present Medications Home Medications: Ambulatory Orders Medication Instructions Recorded Confirmed Chlordiazepoxide/Clidinium Br 1 each PO BID PRN 11/18/13 10/20/20 [Chlordiazepoxide-Clidinium Cap] Ascorbic Acid [Vitamin C] 1,000 mg PO DAILY 08/07/17 10/20/20 Cholecalciferol (Vitamin D3) 2,000 unit PO DAILY 08/07/17 10/20/20 [Vitamin D3] Flaxseed Oil 1,000 mg PO DAILY 08/07/17 10/20/20 Krill/Lee-3/Dha/Epa/Lipids 1 cap PO DAILY 08/07/17 10/20/20 [Krill Oil 350 mg Softgel] L. Acidophilus/L. Rhamnosus 1 each PO DAILY 08/07/17 10/20/20 [Probiotic 15 Billion Cell Cap] Leflunomide 20 mg PO DAILY 08/07/17 10/20/20 Magnesium 400 mg PO DAILY 08/07/17 10/20/20 Multivit with Calcium,Iron,Min 1 tab PO DAILY 08/07/17 10/20/20 [Multiple Vitamins For Women] Vitamin E 100 unit PO DAILY 08/07/17 10/20/20 Furosemide [Lasix] 20 mg PO DAILY #15 tablet 07/09/18 10/20/20 Levothyroxine Sodium [Synthroid] 50 mcg PO QDAC 07/09/18 10/20/20 Potassium Chloride 10 meq PO DAILY #15 tab.er.prt 07/09/18 10/20/20 predniSONE [Prednisone] 5 mg PO DAILY 07/09/18 10/20/20 Spironolactone 1 tab PO DAILY 09/17/18 10/20/20 carvediloL [Carvedilol] 1.5 tab PO BID 12/10/18 10/20/20 Losartan [Cozaar] 75 mg PO BID 04/01/19 10/20/20 Famotidine [Pepcid] 20 mg PO DAILY #20 tablet 10/20/20 Ondansetron Odt [Zofran] 4 mg TL Q6H PRN #10 tablet 10/20/20 Acetaminophen/Cod 300/30 [Tylenol 1 each PO Q6H PRN #14 tablet 12/09/21 #3] Naproxen 250 mg PO BID 7 Days #14 tablet 12/09/21 cephALEXin [Keflex] 500 mg PO TID 5 Days #15 cap 12/09/21 Ondansetron Odt [Zofran] 4 mg TL Q6H PRN #10 tablet 12/22/21 Oxycodone HCl/Acetaminophen 1 - 2 each PO Q6H PRN #14 tablet 12/22/21 [Percocet 5-325 mg Tablet] Acetaminophen/Cod 300/30 [Tylenol 1 each PO Q8H PRN #15 tablet 02/11/22 #3] Naproxen 250 mg PO BID 7 Days #14 tablet 02/11/22 Ondansetron Odt [Zofran] 4 mg TL Q6H PRN #15 tablet 02/11/22 - Allergies Allergies/Adverse Reactions: Allergies Allergy/AdvReac Type Severity Reaction Status Date / Time hydrocodone AdvReac Dizziness Verified 02/11/22 13:37 - Social History Does the pt smoke?: No Smoking Status: Never smoker Does the pt drink ETOH?: No Does the pt have substance abuse?: No - Immunizations Immunizations are current?: Yes - POLST Patient has POLST: Yes PD ED PE NORMAL - Vitals Vital signs reviewed: Yes - General General: Alert and oriented X 3, Well developed/nourished - HEENT HEENT: Atraumatic - Neck Neck: Supple, no meningeal sign, No bony TTP - Cardiac Cardiac: RRR, No murmur - Respiratory Respiratory: Clear bilaterally - Abdomen Abdomen: Normal bowel sounds, Soft, Non tender - Back Back: No CVA TTP, Other (tender in lower lumbar and LS area without deformity. SOme tender right muscles lumbar area as well. ) Results - Vitals Vitals: Vital Signs - 24 hr 02/11/22 02/11/22 13:30 15:15 Temperature 36.1 C L Heart Rate 82 75 Respiratory 19 16 Rate Blood Pressure 151/101 H 123/77 O2 Saturation 94 99 Oxygen O2 Source Room air - Rads (name of study) lumbar CT Radiology: Prelim report reviewed (chronic arthritic changes. No acute fractures. ), See rad report PD MEDICAL DECISION MAKING - ED course ED course: I am prescribing a short course of short acting opioid pain medicine for this patient. 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 I have discussed that the opioids are for short-term therapy only, and will not be refilled from the ED. Departure - Departure Disposition: 01 Home, Self Care Clinical Impression: Lumbar pain Accidental fall Qualifiers: Encounter type: initial encounter Qualified Code(s): W19.XXXA - Unspecified fall, initial encounter Condition: Stable Record reviewed to determine appropriate education?: Yes Instructions: ED Sprain Strain Lumbar Follow-Up: Meron Mcdaniel PA-C [Primary Care Provider] - Prescriptions: Naproxen 250 mg PO BID 7 Days #14 tablet Acetaminophen/Cod 300/30 [Tylenol #3] 1 each PO Q8H PRN #15 tablet PRN Reason: Pain Ondansetron Odt [Zofran] 4 mg TL Q6H PRN #15 tablet PRN Reason: Nausea / Vomiting Comments: Your CT scan does not show any signs of acute fractures or obvious injury. There is prior arthritic changes noted in your back. I presume the pain in your back is related to a flare of some arthritis and also muscular and ligament pains. Heat and gentle stretching for the low back to reduce stiffness and spasm. Use an anti-inflammatory of naproxen twice daily with food for the next week. To that add Tylenol every 6 hours if needed for pain or Tylenol 3 if needed for worse pain. Ondansetron in combination with the pain medicine to reduce nausea. Follow-up with your primary care if not improved over the next several days to week. At transmitted your prescriptions to [facility] pharmacy in [place]. I am prescribing a short course of narcotic pain medication for you. These are potentially dangerous and addictive medications that should be used carefully. These medications may constipate you. Take an [id number] stool softener such as docusate twice daily with plenty of water while taking these medications. If you go 24 hours without a bowel movement, take [id number] MiraLAX, per package instructions. Do not drink or drive while taking these medications. If you received narcotic or sedating medications while in the emergency department do not drive for 24 hours. Store this medication in a safe, secure place and out of reach of children. It is a violation of federal law to give or sell this medication to another person or to use in a manner other than prescribed. The ED will not refill narcotic prescriptions, including prescriptions lost or stolen. You can dispose of unwanted medications at the [facility]'s office or at several pharmacies such as [facility]. Discharge Date/Time: 02/11/22 15:17
--- OUTSIDE RECORDS SUMMARY | 2022-02-11 13:50 | EXTERNAL MEDICAL SUMMARY RPT | Continuity of Care Document ---
:1940 Author Organization [facility] Address [address] [place] [address] Phone Care Team Providers Name Role Phone Young Unavailable Unavailable Allergies No information. Encounters No information. Medications No information. Problems date description facility [id number] Presence of right artificial shoulder [facility] [id number] Presence of right artificial shoulder [facility] [id number] Contact with and (suspected) exposure t o [address] Procedures date description facility [id number] [facility] [id number] [facility] Results No information. Vital Signs date measurement value source 20220109 weight_standard 57.61 lb 20220109 weight_metric 26.13 kg 20220109 temperature_standard 96.8 F 20220109 temperature_metric 36 C 20220109 respiration_rate 12 /min 20220109 height_standard 63 in [id number] height_metric 160.02 cm 20220109 heart_rate 56 /min 20220109 BP_systolic 140 mm[Hg] 20220109 BP_diastolic 54 mm[Hg] 20220109 BMI 22.4 kg/m2
[2022-02-11] MEDS: ACETAMINOPHEN/CODEINE 300 MG/30 MG TABLET PO STA (13:52)
[2022-02-11] MEDS: ONDANSETRON ODT 4 MG TABLET TL STA (13:52)
--- NOTE | 2022-02-11 14:36 | CT Report ---
PROCEDURE: LUMBAR SPINE WO INDICATIONS: fall 2 d ago, landed low back/ pain LS. TECHNIQUE: Noncontrast 3 mm thick sections acquired from the T12 level to the sacrum. Sagittal and coronal refo rmats were constructed. For radiation dose reduction, the following was used: automated exposure co ntrol, adjustment of mA and/or kV according to patient size. COMPARISON: None. FINDINGS: Moderate dextroscoliosis centered at L2 with a Jacob angle of approximately 20 degrees. There is right lateral listhesis of L2 with respect to L1 measuring approximately 8 mm. There is also right lateral listhesis of L3 with respect to L4 measuring 5 mm. 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 Vertebral body heights maintained. No evidence of lumbar spine fracture. Severe bilateral L5-S1 neural foraminal stenosis. Moderate bilateral L4-L5 neural foraminal stenosis. Probable moderate to severe and subarticular zone stenosis at L5-S1 and L4-L5. Probable moderate spi nal canal stenosis at L3-L4 with mild to moderate bilateral neural foraminal stenosis. No acute finding the included regional soft tissues. Sigmoid diverticulosis. Aortic atherosclerosis. IMPRESSION: No fracture or acute finding. 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 Moderate dextroscoliosis with associated listhesis. Overall severe degenerative changes in the lumbar spine. Reviewed by: Bernardino Arceo MD on 02/11/2022 2:34 PM PDT Approved by: Bernardino Arceo MD on 02/11/2022 2:34 PM PDT Station ID: [id number]
[2022-02-11 15:17] VITALS: BP 123/77
== END 2022-02-11 15:17 | disposition home or self-care (01) ==
LOC: ED 13:23
DX: M54.50 Low back pain, unspecified (principal)
CPT/HCPCS: 72131; 99282; 99283; A9270; Q0162

== ENCOUNTER 2022-02-18 09:59 | Emergency (ER) | payer MEDICARE, OTHER ==
[2022-02-18 10:25] LABS: BASOPHILS # (AUTO) 0.1 10^3/uL (0.0-0.1); BASOPHILS % (AUTO) 0.9 %; EOSINOPHILS # (AUTO) 0.2 10^3/uL (0.0-0.7); EOSINOPHILS % (AUTO) 1.5 %; HCT - HEMATOCRIT 35.6 % (37.0-47.0); HGB - HEMOGLOBIN 12.2 g/dL (12.0-16.0); LYMPHOCYTES # (AUTO) 2.6 10^3/uL (1.5-3.5); LYMPHOCYTES % (AUTO) 25.3 %; MEAN CORPUSCULAR HEMOGLOBIN 30.7 pg (27.0-31.0); MEAN CORPUSCULAR HGB CONC 34.3 g/dL (32.0-36.0); MEAN CORPUSCULAR VOLUME 89.7 fL (81.0-99.0); MEAN PLATELET VOLUME 8.3 fL (7.9-10.8); MONOCYTES # (AUTO) 1.2 10^3/uL (0.0-1.0); MONOCYTES % (AUTO) 11.1 %; NEUTROPHILS # (AUTO) 6.1 10^3/uL (1.5-6.6); NEUTROPHILS % (AUTO) 58.3 %; PLT - PLATELET COUNT 483 10^3/uL (130-450); RED BLOOD COUNT 3.97 10^6/uL (4.20-5.40); RED CELL DISTRIBUTION WIDTH 16.7 % (12.0-15.0); WHITE BLOOD COUNT 10.4 x10^3/uL (4.8-10.8)
[2022-02-18 10:43] LABS: BILIRUBIN,URINE NEGATIVE (NEGATIVE); GLUCOSE, URINE (UA) NEGATIVE (NEGATIVE); KETONES,URINE (UA) NEGATIVE (NEGATIVE); LEUKOCYTE ESTERASE, URINE NEGATIVE (NEGATIVE); NITRITE,URINE NEGATIVE (NEGATIVE); OCCULT BLOOD,URINE NEGATIVE (NEGATIVE); PROTEIN,URINE NEGATIVE (NEGATIVE); UROBILINOGEN,URINE 0.2 (NORMAL) E.U./dL (NORMAL)
[2022-02-18 10:51] LABS: CLARITY,URINE CLEAR (CLEAR)
--- OUTSIDE RECORDS SUMMARY | 2022-02-18 11:17 | EXTERNAL MEDICAL SUMMARY RPT | Continuity of Care Document ---
:1940 Author Organization [facility] Address [address] [place] [address] Phone Care Team Providers Name Role Phone Young Unavailable Unavailable Allergies No information. Encounters No information. Medications No information. Problems date description facility [id number] Presence of right artificial shoulder [facility] [id number] Presence of right artificial shoulder [facility] [id number] Contact with and (suspected) exposure t o [facility] [place] [address] Procedures date description facility [id number] [facility] [id number] [facility] Results No information. Vital Signs date measurement value source 20220109 weight_standard 57.61 lb 20220109 weight_metric 26.13 kg 20220109 temperature_standard 96.8 F 20220109 temperature_metric 36 C 20220109 respiration_rate 12 /min 20220109 height_standard 63 in [id number] height_metric 160.02 cm 20220109 heart_rate 56 /min 20220109 BP_systolic 140 mm[Hg] 20220109 BP_diastolic 54 mm[Hg] 20220109 BMI 22.4 kg/m2
[2022-02-18 11:22] LABS: ALBUMIN 3.6 g/dL (3.2-5.5); ALBUMIN/GLOBULIN RATIO 1.2 (1.0-2.2); BILIRUBIN,TOTAL 0.7 mg/dL (0.2-1.0); CALCIUM 9.4 mg/dL (8.5-10.3); CREATININE 1.2 mg/dL (0.4-1.0); POTASSIUM 4.5 mmol/L (3.5-5.0); TOTAL PROTEIN 6.6 g/dL (6.7-8.2)
[2022-02-18] MEDS ORDERED: IOPAMIDOL-300 100 ML VIAL ONE (11:43)
[2022-02-18] MEDS ORDERED: IOPAMIDOL-300 100 ML VIAL IVP ONE (12:09)
--- NOTE | 2022-02-18 12:47 | CT Report ---
PROCEDURE: Abdomen/Pelvis W INDICATIONS: LLQ abd pain CONTRAST: IV CONTRAST: Isovue 300 ml: 100 PO CONTRAST: *NO PO CONTRAST TECHNIQUE: After the administration of intravenous contrast, 5 mm thick sections acquired from the diaphragms to the symphysis. 5 mm thick coronal and sagittal reformats were acquired. For radiation dose reducti on, the following was used: automated exposure control, adjustment of mA and/or kV according to eladio ent size. COMPARISON: CT abdomen/pelvis 10/20/2020 FINDINGS: Image quality: Excellent. ABDOMEN: Lung bases: Lung bases are clear. Heart size is normal. Solid organs: Liver and spleen are normal in size and enhancement. Gallbladder is unremarkable. Bi liary system is non dilated. Pancreas enhances normally. No adrenal nodules. Kidneys demonstrate n ormal size and enhancement, without hydronephrosis. Subcentimeter hypodensities in the left kidney a re too small to characterize, but likely represent cysts. Peritoneum and bowel: Multiple diverticula are seen in the colon without pericolonic inflammatory jean-pierre nges to suggest acute diverticulitis. There is a moderate to large amount of stool in the colon. Smal l bowel loops are unremarkable. No ascites or pneumoperitoneum. Nodes and vessels: No retroperitoneal or mesenteric adenopathy by size criteria. Aorta and inferior vena cava are normal in size. Moderate aortic atherosclerotic calcifications. Miscellaneous: No ventral hernias. PELVIS: Genitourinary: Bladder wall thickness is normal. Miscellaneous: No inguinal hernias or adenopathy. Bones: No suspicious bony lesions. No vertebral body compression fractures. Mild dextro convex cur vature and multilevel moderate to severe degenerative changes in the spine. Bilateral spondylolysis o f L5 with grade 1 anterolisthesis of L5 on S1. Right hip arthroplasty is present. Degenerative change s are seen in the sacroiliac joints and pubic symphysis. IMPRESSION: 1.No acute abnormality in the abdomen or pelvis. 2.Colonic diverticulosis without signs of acute diverticulitis. Moderate to large volume of stool in the colon. 3.Multilevel degenerative changes of the spine. Reviewed by: Negro Cao MD on 02/18/2022 12:46 PM PDT Approved by: Negro Cao MD on 02/18/2022 12:46 PM PDT Station ID: [id number]
--- NOTE | 2022-02-18 13:25 | ED Physician Documentation ---
History of Present Illness - Stated complaint Stated Complaint: STOMACH PX - Chief complaint Chief Complaint: Abd Pain - History obtained from History obtained from: Patient - History of Present Illness Timing: How many days ago (3) Pain level max: 7 Pain level now: 3 - Additonal information Additional information: 81-year-old female states that she has had constipation for the past 3 days. She states that she did have a bowel movement today which is rather large and did feel somewhat better. She went to the walk-in clinic and was sent here for further evaluation. No fevers. No chills. No nausea or vomiting. Has not had similar symptoms previously. Last colonoscopy was about 1 year ago. Review of Systems Constitutional: denies: Fever, Chills Cardiac: denies: Chest pain / pressure Respiratory: denies: Cough GI: reports: Constipation. 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 Psych: None Musculoskeletal: Osteoarthritis, Rheumatoid arthritis, Osteoporosis, Chronic back pain - Past Surgical History Past Surgical History: Yes General: Appendectomy Ortho: Shoulder arthroplasty, Arthroscopic surgery /FIRE CHIEF: Mastectomy HEENT: Tonsil/Adenoidectomy - Present Medications Home Medications: Ambulatory Orders Medication Instructions Recorded Confirmed Ascorbic Acid [Vitamin C] 1,000 mg PO DAILY 08/07/17 02/18/22 Cholecalciferol (Vitamin D3) 2,000 unit PO DAILY 08/07/17 02/18/22 [Vitamin D3] Leflunomide 20 mg PO DAILY 08/07/17 02/18/22 Magnesium 400 mg PO DAILY 08/07/17 02/18/22 Multivit with Calcium,Iron,Min 1 tab PO DAILY 08/07/17 02/18/22 [Multiple Vitamins For Women] Vitamin E 100 unit PO DAILY 08/07/17 02/18/22 Furosemide [Lasix] 20 mg PO DAILY #15 tablet 07/09/18 02/18/22 Levothyroxine Sodium [Synthroid] 50 mcg PO QDAC 07/09/18 02/18/22 Spironolactone 1 tab PO DAILY 09/17/18 02/18/22 carvediloL [Carvedilol] 1.5 tab PO BID 12/10/18 02/18/22 Losartan [Cozaar] 75 mg PO BID 04/01/19 02/18/22 Ondansetron Odt [Zofran] 4 mg TL Q6H PRN #15 tablet 02/11/22 02/18/22 Magnesium Citrate 296 ml PO ONCE PRN #296 ml 02/18/22 polyethylene glycoL 3350 [Miralax] 17 gm PO DAILY PRN #1 bottle 02/18/22 - Allergies Allergies/Adverse Reactions: Allergies Allergy/AdvReac Type Severity Reaction Status Date / Time hydrocodone AdvReac Dizziness Verified 02/18/22 10:09 - Social History Does the pt smoke?: No Smoking Status: Never smoker Does the pt drink ETOH?: No Does the pt have substance abuse?: No - Immunizations Immunizations are current?: Yes - POLST Patient has POLST: Yes PD ED PE NORMAL - Vitals Vital signs reviewed: Yes - General General: Alert and oriented X 3, No acute distress - HEENT HEENT: Moist mucous membranes - Neck Neck: Supple, no meningeal sign - Cardiac Cardiac: RRR - Respiratory Respiratory: No respiratory distress, Clear bilaterally - Abdomen Abdomen: Soft, Other (mild TTP LLQ, no peritoneal signs) - Derm Derm: Warm and dry - Extremities Extremities: No edema - Neuro Neuro: Alert and oriented X 3 Results - Vitals Vitals: Vital Signs - 24 hr 02/18/22 02/18/22 02/18/22 10:10 12:11 13:31 Temperature 36.7 C 36.9 C Heart Rate 118 H 66 65 Respiratory 20 17 18 Rate Blood Pressure 173/85 H 139/64 H 134/101 H O2 Saturation 99 100 99 Oxygen O2 Source Room air - Labs Labs: Laboratory Tests 02/18/22 02/18/22 02/18/22 10:19 10:19 10:20 WBC 10.4 RBC 3.97 L Hgb 12.2 Hct 35.6 L MCV 89.7 MCH 30.7 MCHC 34.3 RDW 16.7 H Plt Count 483 H MPV 8.3 Neut # (Auto) 6.1 Lymph # (Auto) 2.6 Pratt # (Auto) 1.2 H Eos # (Auto) 0.2 Baso # (Auto) 0.1 Absolute Nucleated RBC 0.00 Nucleated RBC % 0.0 Sodium 130 L Potassium 4.5 Chloride 93 L Carbon Dioxide 28 Anion Gap 9.0 BUN 18 Creatinine 1.2 H Estimated GFR (MDRD) 43 L Glucose 94 Calcium 9.4 Total Bilirubin 0.7 AST 21 ALT 18 Alkaline Phosphatase 69 Total Protein 6.6 L Albumin 3.6 Globulin 3.0 Albumin/Globulin Ratio 1.2 Lipase 34 Urine Color YELLOW Urine Clarity CLEAR Urine pH 7.0 Ur Specific Plummer 1.010 Urine Protein NEGATIVE Urine Glucose (UA) NEGATIVE Urine Ketones NEGATIVE Urine Occult Blood NEGATIVE Urine Nitrite NEGATIVE Urine Bilirubin NEGATIVE Urine Urobilinogen 0.2 (NORMAL) Ur Leukocyte Esterase NEGATIVE Ur Microscopic Review NOT INDICATED Urine Culture Comments NOT INDICATED - Rads (name of study) CT abd/pelvis Radiology: Final report received, EMP read contemporaneously, See rad report PD MEDICAL DECISION MAKING - ED course Complexity details: reviewed results, re-evaluated patient, considered differential, d/w patient ED course: 81-year-old female presents to the emergency department with abdominal pain. Appears to have moderate to large volume of stool in the colon. No evidence of diverticulitis. No evidence of abscess or perforation. We will place on MiraLAX and magnesium citrate for home. We will have her follow-up with her doctor for further care. Patient is well-appearing, nontoxic. Afebrile. P atient counseled regarding signs and symptoms for which I believe and urgent re- evaluation would be necessary. Patient with good understanding of and agreement to plan and is comfortable going home at this time This document was made in part using voice recognition software. While efforts are made to proofread this document, sound alike and grammatical errors may occur. IMPRESSION: 1.No acute abnormality in the abdomen or pelvis. 2.Colonic diverticulosis without signs of acute diverticulitis. Moderate to large volume of stool in the colon. 3.Multilevel degenerative changes of the spine. Departure - Departure Disposition: Home, Self Care Clinical Impression: Constipation Qualifiers: Constipation type: unspecified constipation type Qualified Code(s): K59.00 - Constipation, unspecified Abdominal pain Qualifiers: Abdominal location: unspecified location Qualified Code(s): R10.9 - Unspecified abdominal pain Condition: Good Instructions: ED Constipation Follow-Up: your,doctor in 1 week [Other] Prescriptions: Magnesium Citrate 296 ml PO ONCE PRN #296 ml PRN Reason: Constipation polyethylene glycoL 3350 [Miralax] 17 gm PO DAILY PRN #1 bottle PRN Reason: Constipation Comments: Please follow-up with your doctor for further care. Return if you worsen. You do appear to have significant constipation today. We will prescribe MiraLAX and magnesium citrate for home. Drink plenty of water as well. IMPRESSION: 1.No acute abnormality in the abdomen or pelvis. 2.Colonic diverticulosis without signs of acute diverticulitis. Moderate to large volume of stool in the colon. 3.Multilevel degenerative changes of the spine. [facility]. Discharge Date/Time: 02/18/22 13:35
[2022-02-18 13:32] VITALS: BP 134/101
== END 2022-02-18 13:35 | disposition home or self-care (01) ==
LOC: ED 09:59
DX: K59.00 Constipation, unspecified (principal)
CPT/HCPCS: 36415; 74177; 80053; 81003; 83690; 85025; 99282; 99284; Q9967; 81001; 87086

== ENCOUNTER 2022-04-02 08:00 | Outpatient (CLI) | payer MEDICARE, OTHER ==
--- NOTE | 2022-04-02 17:03 | XRAY Report ---
PROCEDURE: Shoulder 2 View LT INDICATIONS: L SHOULDER PX TECHNIQUE: 2 views of the shoulder were acquired. COMPARISON: 07/12/2021 FINDINGS: Bones: No fractures or dislocations. There is been progression of joint space loss in the left mari ohumeral joint. There is articular surface irregularity, subcortical sclerosis and cystic change of t he left humeral head. There is scalloping and sclerosis of the glenoid fossa. Moderate hypertrophic d egenerative changes at the acromial clavicular joint predominantly cranially. No suspicious bony lesi ons. Visualized ribs appear intact. Soft tissues: No suspicious soft tissue calcifications. IMPRESSION: 1. Progression of arthritic changes in the glenohumeral joint, now severe. 2. Stable degeneration of the AC joint, moderate. Reviewed by: Arin Santana MD on 04/02/2022 5:01 PM PDT Approved by: Arin Santana MD on 04/02/2022 5:01 PM PDT Station ID: [id number]
== END 2022-04-02 23:59 | disposition home or self-care (01) ==
LOC: DI.N 08:00
PROVIDERS: ATTEND Nurse Practitioner
DX: M19.012 Primary osteoarthritis, left shoulder (principal)